=== PATIENT | male | born 1955 | race Caucasian/White ===

== ENCOUNTER 2017-05-30 19:05 | Emergency (ER) | payer MEDICARE, BC ==
[2017-05-30] MEDS ORDERED: Sodium Chloride 0.9% 1,000 ML IV SCH ×2 (20:30→22:15)
[2017-05-30] MEDS: Vancomycin 1 GM SDV ONE ×2 (20:41→21:27)
[2017-05-30] MEDS ORDERED: Acetaminophen 1,000 MG in Premix Bag 1 BAG IV ONE (20:42)
[2017-05-30] MEDS ORDERED: Albuterol/Ipratropium 3.0-0.5 MG/3 ML Neb Soln NEB ONE (20:42)
--- NOTE | 2017-05-30 21:07 | EDM.PDOC ---
ED HPI GENERAL MEDICAL PROBLEM - General Chief Complaint: Skin Complaint Stated Complaint: R LEG REDNESS Time Seen by Provider: 05/30/17 20:22 Source of Information: Reports: Patient History Limitations: Reports: No Limitations - History of Present Illness INITIAL COMMENTS - FREE TEXT/NARRATIVE: Febrile illness: This is a 61-year-old male presents emergency room by private vehicle reporting a cough for the past 2 weeks felt like it was cold symptoms. Then today developed a worsening cough, coughing with emesis. Hubbard weak. Fever. And intermittent chest pain. Reports right lower leg with red dark appearance very painful, this is similar to his previous leg cellulitis. Onset: Today, Gradual Duration: Week(s): (2 week history of cough and cold symptoms.), Other (Today developed sudden onset of fever, swollen right lower leg, weakness, cough.) Location: Reports: Generalized Improves with: Reports: None Worsens with: Reports: Movement Context: Reports: Other (Illness 2 week) Associated Symptoms: Reports: Chest Pain, Cough, Fever/Chills, Malaise, Nausea/ Vomiting, Weakness, Other (Right swollen leg) - Related Data Allergies Allergy/AdvReac Type Severity Reaction Status Date / Time methyldopa [From Aldomet] Allergy Cough Verified 05/30/17 20:03 methyldopate HCl Allergy Cough Verified 05/30/17 20:03 [From Aldomet] Home Meds: Home Meds Aspirin [Ecotrin] 325 mg PO DAILY 06/28/13 [History] Cholecalciferol (Vitamin D3) [Vitamin D-3] 2,000 unit PO DAILY 06/28/13 [History ] Fenofibrate,Micronized [Fenofibrate] 134 mg PO DAILY 06/28/13 [History] Furosemide [Lasix] 80 mg PO BID 06/28/13 [History] Gabapentin [Neurontin] 300 mg PO BID 06/28/13 [History] Metoprolol Tartrate [Lopressor] 50 mg PO BID 06/28/13 [History] Multivitamin [Multivitamins] 1 each PO DAILY 06/28/13 [History] Omeprazole 20 mg PO BIDAC 06/28/13 [History] buPROPion [Wellbutrin XL] 300 mg PO BEDTIME 06/28/13 [History] metFORMIN HCl [Metformin HCl ER] 1,000 mg PO BID 06/28/13 [History] Albuterol [IJD: Albuterol HFA] 2 puff IH Q4HR PRN 02/10/16 [History] Erythromycin Base [Erythromycin 0.5% Ophth Oint] 1 applic OP Q12HR PRN 02/10/16 [History] Ibuprofen 800 mg PO Q6HR PRN 02/10/16 [History] Nitroglycerin [Nitrostat] 0.4 mg SL ASDIRECTED PRN 02/10/16 [History] Tadalafil [Cialis] 20 mg PO DAILY PRN 02/10/16 [History] Triamcinolone Acetonide [Triamcinolone Acetonide 0.1% Crm] 1 applic TOP ASDIRECTED PRN 02/10/16 [History] atorvaSTATin [Lipitor] 40 mg PO BEDTIME 02/10/16 [History] traMADol HCl [Ultram] 50 mg PO 6XDAY PRN 02/10/16 [History] Insulin Regular, Human [Humulin R U-500 Kwikpen] 90 units SQ BID 05/30/17 [ History] Insulin Regular, Human [Humulin R U-500 Kwikpen] 120 units SQ DAILY 05/30/17 [ History] Liraglutide [Victoza] 1 dose SQ DAILY 05/30/17 [History] Past Medical History Cardiovascular History: Reports: Bypass, CAD, High Cholesterol, Hypertension Musculoskeletal History: Reports: Other (See Below) Other Musculoskeletal History: bilateral rotator cuff surgery Psychiatric History: Reports: Depression Endocrine/Metabolic History: Reports: Diabetes, Type II - Infectious Disease History Infectious Disease History: Reports: Chicken Pox - Past Surgical History HEENT Surgical History: Reports: Tonsillectomy Cardiovascular Surgical History: Reports: Coronary Artery Bypass GI Surgical History: Reports: Colonoscopy Musculoskeletal Surgical History: Reports: Arthroscopic Knee, Shoulder Surgery Social & Family History - Tobacco Use Smoking Status *Q: Current Every Day Smoker Years of Tobacco use: 2 Packs/Tins Daily: 0.5 Second Hand Smoke Exposure: No - Caffeine Use Caffeine Use: Reports: Coffee - Alcohol Use Days Per Week of Alcohol Use: 0 - Recreational Drug Use Recreational Drug Use: No - Living Situation & Occupation Living situation: Reports: with Significant Other (Lives in [place] with significant other, has 1 child who lives [place], [place].) ED ROS GENERAL - Review of Systems Review Of Systems: Unable To Obtain Constitutional: Reports: Fever, Chills, Weakness, Fatigue HEENT: Reports: No Symptoms Respiratory: Reports: Shortness of Breath, Wheezing, Pleuritic Chest Pain, Cough , Sputum Cardiovascular: Reports: Chest Pain (Intermittent none at this time), Dyspnea on Exertion, Edema (Bilateral lower legs), Other (Reports 5 vessel bypass 2010, denies [place] in the past) Endocrine: Reports: Other (Diabetes 21 years) GI/Abdominal: Reports: Nausea, Vomiting : Reports: No Symptoms Musculoskeletal: Reports: Leg Pain (Right lower leg with redness and pain), Muscle Pain, Muscle Stiffness Skin: Reports: Rash, Change in Color (Right lower leg) Neurological: Reports: No Symptoms Psychiatric: Reports: No Symptoms Hematologic/Lymphatic: Reports: No Symptoms Immunologic: Reports: No Symptoms ED EXAM, SKIN/RASH Exam: See Below Exam Limited By: No Limitations General Appearance: Alert, WD/WN, Mild Distress, Obese Eye Exam: Bilateral Eye: Conjunctival Injection Ears: Normal External Exam, Normal Canal, Hearing Grossly Normal, Normal TMs Nose: Normal Inspection, Normal Mucosa, No Blood Throat/Mouth: Normal Inspection, Normal Lips, Normal Teeth, Normal Gums, Normal Oropharynx, Normal Voice, No Airway Compromise Head: Atraumatic, Normocephalic Neck: Normal Inspection, Supple, Non-Tender, Full Range of Motion Respiratory/Chest: Decreased Breath Sounds (Bilateral), Rhonchi (Bilateral) Cardiovascular: Regular Rate, Rhythm, No Murmur GI/Abdominal: Normal Bowel Sounds, Soft, Non-Tender, No Organomegaly (Male) Exam: Deferred Rectal (Males) Exam: Deferred Back Exam: Normal Inspection, Full Range of Motion Extremities: Pedal Edema (2+ pitting edema to knees), Leg Pain (Right lower leg) , Increased Warmth (Right lower leg), Redness (Right lower leg, redness and tenderness noted) Neurological: Alert, Oriented, CN II-XII Intact, Normal Cognition, No Motor/ Sensory Deficits Psychiatric: Normal Affect, Normal Mood Skin: Erythema (Right lower leg), Increased Warmth (Right lower leg), Rash, Other (Fungal rash noted to toes) Location, Skin: Lower Extremity, Right Characteristics: Erythematous Associated features: Warmth, Tenderness, Inflammation Lymphatic: No Adenopathy EKG INTERPRETATION Rhythm: NSR Course - Vital Signs Last Recorded V/S: Last Vital Signs Temp 38.6 C H 05/30/17 21:32 Pulse 108 H 05/30/17 21:32 Resp 17 05/30/17 21:32 BP 123/55 L 05/30/17 21:32 Pulse Ox 88 L 05/30/17 21:32 - Orders/Labs/Meds Orders: Active Orders 24 hr Category Date Time Status EKG Documentation Completion [RC] ASDIRECTED Care 05/30/17 20:28 Active RT Aerosol Therapy [RC] ASDIRECTED Care 05/30/17 20:43 Active Telemetry Monitoring [Cardiac Monitoring] [RC] .As Care 05/30/17 20:27 Active Directed Vital Signs [RC] Q1H Care 05/30/17 20:19 Active Chest 1V Frontal [CR] Urgent Exams 05/30/17 20:27 Taken Lower Extremity w Cont Rt [CT] Stat Exams 05/30/17 21:41 Ordered CULTURE BLOOD [BC] Urgent Lab 05/30/17 20:19 Ordered CULTURE BLOOD [BC] Urgent Lab 05/30/17 20:19 Ordered Sodium Chloride 0.9% [Normal Saline] 1,000 ml Med 05/30/17 20:30 Active IV ASDIRECTED Vancomycin 1 gm Med 05/30/17 21:00 Active Sodium Chloride 0.9% [Normal Saline] 250 ml IV Q12H Blood Culture x2 Reflex Set [OM.PC] Urgent Oth 05/30/17 20:19 Ordered EKG 12 Lead [EK] Urgent Ther 05/30/17 20:27 Ordered Medication Orders Sodium Chloride (Normal Saline) 1,000 mls @ 999 mls/hr IV ASDIRECTED GONZALO Last Admin: 05/30/17 20:25 Dose: 999 mls/hr Vancomycin HCl 1 gm/ Sodium (Chloride) 250 mls @ 150 mls/hr IV Q12H GONZALO Last Admin: 05/30/17 20:41 Dose: 150 mls/hr Labs: Laboratory Tests 05/30/17 05/30/17 05/30/17 Range/Units 20:15 20:15 20:15 WBC 14.3 H (4.5-11.0) K/uL RBC 4.89 (4.30-5.90) M/uL Hgb 14.9 (12.0-15.0) g/dL Hct 43.1 (40.0-54.0) % MCV 88 (80-98) fL MCH 31 (27-31) pg MCHC 35 (32-36) % Plt Count 219 (150-400) K/uL Neut % (Auto) 89 H (36-66) % Lymph % (Auto) 6 L (24-44) % [place] % (Auto) 5 (2-6) % Eos % (Auto) 0 L (2-4) % Baso % (Auto) 0 (0-1) % PT (9.5-12.0) sec INR (0.80-1.20) Sodium 139 L (140-148) mmol/L Potassium 3.9 (3.6-5.2) mmol/L Chloride 102 (100-108) mmol/L Carbon Dioxide 28 (21-32) mmol/L Anion Gap 12.9 (5.0-14.0) mmol/L BUN 26 H (7-18) mg/dL Creatinine 1.1 (0.8-1.3) mg/dL Est Cr Clr Drug Dosing 83.03 mL/min Estimated GFR (MDRD) > 60 (>60) Glucose 286 H (74-106) mg/dL Lactic Acid 3.0 H (0.4-2.0) mmol/L Calcium 8.6 (8.5-10.1) mg/dL Total Bilirubin 0.6 (0.2-1.0) mg/dL AST 16 (15-37) U/L ALT 33 (12-78) U/L Alkaline Phosphatase 66 (46-116) U/L Troponin I (0.000-0.056) ng/mL C-Reactive Protein 2.35 H (0.0-0.3) mg/dL NT-Pro-B Natriuret Pep (5-125) pg/mL Total Protein 7.5 (6.4-8.2) g/dL Albumin 3.7 (3.4-5.0) g/dL Globulin 3.8 H (2.3-3.5) g/dL Albumin/Globulin Ratio 1.0 L (1.2-2.2) Urine Color Urine Appearance Urine pH (4.5-8.0) Ur Specific [place] (1.008-1.030) Urine Protein (NEGATIVE) mg/dL Urine Glucose (UA) (NEGATIVE) mg/dL Urine Ketones (NEGATIVE) mg/dL Urine Occult Blood (NEGATIVE) Urine Nitrite (NEGAITVE) Urine Bilirubin (NEGATIVE) Urine Urobilinogen (NORMAL) mg/dL Ur Leukocyte Esterase (NEGATIVE) Urine RBC (0-5) Urine WBC (0-5) Ur Epithelial Cells Amorphous Sediment Urine Bacteria Urine Mucus 05/30/17 05/30/17 05/30/17 Range/Units 20:27 20:45 20:46 WBC (4.5-11.0) K/uL RBC (4.30-5.90) M/uL Hgb (12.0-15.0) g/dL Hct (40.0-54.0) % MCV (80-98) fL MCH (27-31) pg MCHC (32-36) % Plt Count (150-400) K/uL Neut % (Auto) (36-66) % Lymph % (Auto) (24-44) % [place] % (Auto) (2-6) % Eos % (Auto) (2-4) % Baso % (Auto) (0-1) % PT (9.5-12.0) sec INR (0.80-1.20) Sodium (140-148) mmol/L Potassium (3.6-5.2) mmol/L Chloride (100-108) mmol/L Carbon Dioxide (21-32) mmol/L Anion Gap (5.0-14.0) mmol/L BUN (7-18) mg/dL Creatinine (0.8-1.3) mg/dL Est Cr Clr Drug Dosing mL/min Estimated GFR (MDRD) (>60) Glucose (74-106) mg/dL Lactic Acid (0.4-2.0) mmol/L Calcium (8.5-10.1) mg/dL Total Bilirubin (0.2-1.0) mg/dL AST (15-37) U/L ALT (12-78) U/L Alkaline Phosphatase (46-116) U/L Troponin I < 0.017 (0.000-0.056) ng/mL C-Reactive Protein (0.0-0.3) mg/dL NT-Pro-B Natriuret Pep 69 (5-125) pg/mL Total Protein (6.4-8.2) g/dL Albumin (3.4-5.0) g/dL Globulin (2.3-3.5) g/dL Albumin/Globulin Ratio (1.2-2.2) Urine Color Yellow Urine Appearance Clear Urine pH 7.0 (4.5-8.0) Ur Specific [place] 1.010 (1.008-1.030) Urine Protein Negative (NEGATIVE) mg/dL Urine Glucose (UA) 1000 H (NEGATIVE) mg/dL Urine Ketones 15 H (NEGATIVE) mg/dL Urine Occult Blood Negative (NEGATIVE) Urine Nitrite Negative (NEGAITVE) Urine Bilirubin Negative (NEGATIVE) Urine Urobilinogen Normal (NORMAL) mg/dL Ur Leukocyte Esterase Negative (NEGATIVE) Urine RBC Not seen (0-5) Urine WBC Not seen (0-5) Ur Epithelial Cells Rare Amorphous Sediment Not seen Urine Bacteria Rare Urine Mucus Not seen 05/30/17 Range/Units 20:46 WBC (4.5-11.0) K/uL RBC (4.30-5.90) M/uL Hgb (12.0-15.0) g/dL Hct (40.0-54.0) % MCV (80-98) fL MCH (27-31) pg MCHC (32-36) % Plt Count (150-400) K/uL Neut % (Auto) (36-66) % Lymph % (Auto) (24-44) % [place] % (Auto) (2-6) % Eos % (Auto) (2-4) % Baso % (Auto) (0-1) % PT 11.4 (9.5-12.0) sec INR 1.06 (0.80-1.20) Sodium (140-148) mmol/L Potassium (3.6-5.2) mmol/L Chloride (100-108) mmol/L Carbon Dioxide (21-32) mmol/L Anion Gap (5.0-14.0) mmol/L BUN (7-18) mg/dL Creatinine (0.8-1.3) mg/dL Est Cr Clr Drug Dosing mL/min Estimated GFR (MDRD) (>60) Glucose (74-106) mg/dL Lactic Acid (0.4-2.0) mmol/L Calcium (8.5-10.1) mg/dL Total Bilirubin (0.2-1.0) mg/dL AST (15-37) U/L ALT (12-78) U/L Alkaline Phosphatase (46-116) U/L Troponin I (0.000-0.056) ng/mL C-Reactive Protein (0.0-0.3) mg/dL NT-Pro-B Natriuret Pep (5-125) pg/mL Total Protein (6.4-8.2) g/dL Albumin (3.4-5.0) g/dL Globulin (2.3-3.5) g/dL Albumin/Globulin Ratio (1.2-2.2) Urine Color Urine Appearance Urine pH (4.5-8.0) Ur Specific [place] (1.008-1.030) Urine Protein (NEGATIVE) mg/dL Urine Glucose (UA) (NEGATIVE) mg/dL Urine Ketones (NEGATIVE) mg/dL Urine Occult Blood (NEGATIVE) Urine Nitrite (NEGAITVE) Urine Bilirubin (NEGATIVE) Urine Urobilinogen (NORMAL) mg/dL Ur Leukocyte Esterase (NEGATIVE) Urine RBC (0-5) Urine WBC (0-5) Ur Epithelial Cells Amorphous Sediment Urine Bacteria Urine Mucus Meds: Medications Generic Name Dose Route Start Last Admin Trade Name Freq PRN Reason Stop Dose Admin Sodium Chloride 1,000 mls @ 999 mls/hr 05/30/17 20:30 05/30/17 20:25 Normal Saline IV 999 mls/hr ASDIRECTED GONZALO Administration Vancomycin HCl 1 gm/ Sodium 250 mls @ 150 mls/hr 05/30/17 21:00 05/30/17 20: 41 Chloride IV 150 mls/hr Q12H GONZALO Administration Discontinued Medications Generic Name Dose Route Start Last Admin Trade Name Freq PRN Reason Stop Dose Admin Albuterol/Ipratropium 3 ml 05/30/17 20:42 05/30/17 21:05 Duoneb 3.0-0.5 Mg/3 Ml NEB 05/30/17 20:43 3 ml ONETIME ONE Administration Acetaminophen 1,000 mg/ Premix 100 mls @ 400 mls/hr 05/30/17 20:42 05/30/17 21:12 IV 05/30/17 20:56 400 mls/hr NOW ONE Administration Vancomycin HCl Confirm 05/30/17 20:29 05/30/17 21:27 Vancomycin Administered 05/30/17 20:30 Not Given Dose 1 gm .ROUTE .STK-MED ONE - Re-Assessments/Exams Free Text/Narrative Re-Assessment/Exam: 05/30/17 21:16 Upon arrival to the ER he was noted to have a temp of 104, pulse 115, respirations 22, blood pressure 120/76, O2 sat 86% on room air increased to 91% with 2 L by nasal cannula. Plan: Sepsis protocol initiated. Imaging chest x-ray ,labs x-ray are pending. EKG shows a sinus tach without ST elevation Medications : IV fluids normal saline 1 L at 999ml/hr, vancomycin 1 g IV, IV Tylenol 1 g, Zofran 4 mg IV. 05/30/17 21:45 Consult was transferred [facility]; reviewed case will be accepted for admission. ./hospitalists would like a CT of the lower right leg prior to transfer. Departure - Departure Time of Disposition: 21:55 Disposition: DC/Tfer to Acute Hospital 02 Condition: Fair Clinical Impression: Sepsis - Discharge Information Referrals: Malina Garcia MD [Primary Care Provider] - Forms: ED Department Discharge Care Plan Goals: Transfer to [facility] for hospital admission, will be transported via [facility] ambulance. - My Orders Last 24 Hours: My Active Orders 05/30/17 20:19 Vital Signs [RC] Q1H CULTURE BLOOD [BC] Urgent CULTURE BLOOD [BC] Urgent Blood Culture x2 Reflex Set [OM.PC] Urgent 05/30/17 20:27 Telemetry Monitoring [Cardiac Monitoring] [RC] .As Directed Chest 1V Frontal [CR] Urgent EKG 12 Lead [EK] Urgent 05/30/17 20:28 EKG Documentation Completion [RC] ASDIRECTED 05/30/17 20:30 Sodium Chloride 0.9% [Normal Saline] 1,000 ml IV ASDIRECTED 05/30/17 20:43 RT Aerosol Therapy [RC] ASDIRECTED 05/30/17 21:00 Vancomycin 1 gm Sodium Chloride 0.9% [Normal Saline] 250 ml IV Q12H 05/30/17 21:41 Lower Extremity w Cont Rt [CT] Stat - Assessment/Plan Last 24 Hours: My Active Orders 05/30/17 20:19 Vital Signs [RC] Q1H CULTURE BLOOD [BC] Urgent CULTURE BLOOD [BC] Urgent Blood Culture x2 Reflex Set [OM.PC] Urgent 05/30/17 20:27 Telemetry Monitoring [Cardiac Monitoring] [RC] .As Directed Chest 1V Frontal [CR] Urgent EKG 12 Lead [EK] Urgent 05/30/17 20:28 EKG Documentation Completion [RC] ASDIRECTED 05/30/17 20:30 Sodium Chloride 0.9% [Normal Saline] 1,000 ml IV ASDIRECTED 05/30/17 20:43 RT Aerosol Therapy [RC] ASDIRECTED 05/30/17 21:00 Vancomycin 1 gm Sodium Chloride 0.9% [Normal Saline] 250 ml IV Q12H 05/30/17 21:41 Lower Extremity w Cont Rt [CT] Stat
[2017-05-30 21:34] VITALS: BP 123/55
[2017-05-30] MEDS ORDERED: Sodium Chloride 0.9% 10 ML Syringe FLUSH PRN (21:55)
[2017-05-30] MEDS ORDERED: Iopamidol 612 MG/ML 100 ML Bottle IV SCH (22:00)
[2017-05-30] MEDS ORDERED: Sodium Chloride 0.9% 80 ML IV SCH (22:00)
--- NOTE | 2017-05-31 09:44 | CR ---
Sternotomy. Heart size within normal limits. No focal consolidation.
== END 2017-05-30 22:35 ==
LOC: JP.ED 19:05
DX: A41.9 Sepsis, unspecified organism (principal); I25.10 Atherosclerotic heart disease of native coronary artery without angina pectoris; E78.00 Pure hypercholesterolemia, unspecified; I10 Essential (primary) hypertension; E11.9 Type 2 diabetes mellitus without complications; F17.210 Nicotine dependence, cigarettes, uncomplicated; Z79.899 Other long term (current) drug therapy; Z79.82 Long term (current) use of aspirin; Z88.8 Allergy status to other drugs, medicaments and biological substances; R06.02 Shortness of breath
CPT/HCPCS: 36415; 71010; 73701; 80053; 81001; 83605; 83880; 84484; 85025; 85610; 86140; 87040; 93005; 93010; 96365; 96366; 96375; 99284; 99285; J0131; J3370; J7030; J7040; J7050; J7620; Q9967

== ENCOUNTER 2017-06-28 20:42 | Inpatient (IN) | payer MEDICARE, BC ==
[2017-06-28] MEDS ORDERED: Sodium Chloride 0.9% 10 ML Syringe FLUSH PRN (21:26)
[2017-06-28] MEDS ORDERED: Vancomycin 1 GM SDV ONE (21:53)
[2017-06-28] MEDS ORDERED: Dextrose 5% in Water 250 ML ONE (21:53)
[2017-06-28] MEDS ORDERED: Insulin Regular, Human 100 Units/ML 10 ML Vial SUBCUT ONE (21:57)
--- NOTE | 2017-06-28 22:10 | EDM.PDOC ---
ED HPI GENERAL MEDICAL PROBLEM - General Chief Complaint: Skin Complaint Stated Complaint: CELLULITIS Time Seen by Provider: 06/28/17 21:03 Source of Information: Reports: Patient History Limitations: Reports: No Limitations - History of Present Illness INITIAL COMMENTS - FREE TEXT/NARRATIVE: This patient comes in for complaints of cellulitis of the right calf. He had the same thing about 4 weeks ago was seen in our ER had a high fever was sent to [place]. He was placed on antibiotics and was also found that he had a clot in the leg he was placed on Coumadin which he is still taking. Today at home his temperature was up to 102. He bumped his calf a few days ago on something and got a little abrasion upfront over the midshaft the tibia. It's been draining for a couple of days and now today the whole calf is red warm and a little bit tender right LE Pain Score (Numeric/FACES): 8 - Related Data Allergies Allergy/AdvReac Type Severity Reaction Status Date / Time methyldopa [From Aldomet] Allergy Cough Verified 06/28/17 21:03 methyldopate HCl Allergy Cough Verified 06/28/17 21:03 [From Aldomet] Home Meds: Home Meds Aspirin [Ecotrin] 325 mg PO DAILY 06/28/13 [History] Cholecalciferol (Vitamin D3) [Vitamin D-3] 2,000 unit PO DAILY 06/28/13 [History ] Fenofibrate,Micronized [Fenofibrate] 134 mg PO DAILY 06/28/13 [History] Furosemide [Lasix] 80 mg PO BID 06/28/13 [History] Gabapentin [Neurontin] 300 mg PO BID 06/28/13 [History] Metoprolol Tartrate [Lopressor] 50 mg PO BID 06/28/13 [History] Multivitamin [Multivitamins] 1 each PO DAILY 06/28/13 [History] Omeprazole 20 mg PO BIDAC 06/28/13 [History] buPROPion [Wellbutrin XL] 300 mg PO BEDTIME 06/28/13 [History] metFORMIN HCl [Metformin HCl ER] 1,000 mg PO BID 06/28/13 [History] Albuterol [IJD: Albuterol HFA] 2 puff IH Q4HR PRN 02/10/16 [History] Erythromycin Base [Erythromycin 0.5% Ophth Oint] 1 applic OP Q12HR PRN 02/10/16 [History] Ibuprofen 800 mg PO Q6HR PRN 02/10/16 [History] Nitroglycerin [Nitrostat] 0.4 mg SL ASDIRECTED PRN 02/10/16 [History] Tadalafil [Cialis] 20 mg PO DAILY PRN 02/10/16 [History] Triamcinolone Acetonide [Triamcinolone Acetonide 0.1% Crm] 1 applic TOP ASDIRECTED PRN 02/10/16 [History] atorvaSTATin [Lipitor] 40 mg PO BEDTIME 02/10/16 [History] traMADol HCl [Ultram] 50 mg PO 6XDAY PRN 02/10/16 [History] Insulin Regular, Human [Humulin R U-500 Kwikpen] 90 units SQ BID 05/30/17 [ History] Insulin Regular, Human [Humulin R U-500 Kwikpen] 120 units SQ DAILY 05/30/17 [ History] Liraglutide [Victoza] 1 dose SQ DAILY 05/30/17 [History] Warfarin Sodium [Warfarin Sodium] 15 mg PO DAILY 06/28/17 [History] Past Medical History Cardiovascular History: Reports: Bypass, CAD, High Cholesterol, Hypertension Respiratory History: Reports: Asthma Musculoskeletal History: Reports: Other (See Below) Other Musculoskeletal History: bilateral rotator cuff surgery Psychiatric History: Reports: Depression Endocrine/Metabolic History: Reports: Diabetes, Type II Dermatologic History: Reports: Cellulitis - Infectious Disease History Infectious Disease History: Reports: Chicken Pox - Past Surgical History HEENT Surgical History: Reports: Tonsillectomy Cardiovascular Surgical History: Reports: Coronary Artery Bypass GI Surgical History: Reports: Colonoscopy Musculoskeletal Surgical History: Reports: Arthroscopic Knee, Shoulder Surgery Social & Family History - Tobacco Use Smoking Status *Q: Never Smoker Years of Tobacco use: 2 Packs/Tins Daily: 0.5 Second Hand Smoke Exposure: No - Caffeine Use Caffeine Use: Reports: Coffee - Alcohol Use Days Per Week of Alcohol Use: 0 - Recreational Drug Use Recreational Drug Use: No - Living Situation & Occupation Living situation: Reports: with Significant Other (Lives in [place] with significant other, has 1 child who lives [place], [place].) ED ROS GENERAL - Review of Systems Review Of Systems: ROS reveals no pertinent complaints other than HPI. ED EXAM, SKIN/RASH Exam: See Below Exam Limited By: No Limitations General Appearance: Alert, No Apparent Distress, Obese Eye Exam: Bilateral Eye: Normal Inspection, PERRL Nose: Normal Inspection Throat/Mouth: Normal Oropharynx Head: Atraumatic Neck: Normal Inspection Respiratory/Chest: Lungs Clear Cardiovascular: Regular Rate, Rhythm GI/Abdominal: Non-Tender Extremities: Other (There is swelling of the right calf. The right calf is fairly deep red and warm from the ankle up to about the knee. Over the midshaft tibia on the right there is a lesion approximately 2 cm in diameter that his training pus. The calf is mildly tender but there are no cords palpable.) Neurological: Alert, Oriented, No Motor/Sensory Deficits Psychiatric: Normal Affect Skin: Warm, Dry, Other (See extremities). No: Normal Color Course - Vital Signs Last Recorded V/S: Last Vital Signs Temp 37.8 C 06/28/17 21:08 Pulse 101 H 06/28/17 21:08 Resp 20 06/28/17 21:08 BP 132/67 06/28/17 21:08 Pulse Ox 92 L 06/28/17 21:08 - Orders/Labs/Meds Orders: Active Orders 24 hr Category Date Time Status AMYLASE [CHEM] Urgent Lab 06/28/17 21:36 Ordered COMPREHENSIVE METABOLIC PN,CMP [CHEM] Urgent Lab 06/28/17 21:35 Received CULTURE WOUND + SMEAR [RM] Stat Lab 06/28/17 21:41 Results LACTIC ACID [CHEM] Stat Lab 06/28/17 21:35 Received LIPASE [CHEM] Urgent Lab 06/28/17 21:36 Ordered UA W/MICROSCOPIC [URIN] Urgent Lab 06/28/17 21:38 Uncollected Sodium Chloride 0.9% [Saline Flush] Med 06/28/17 21:26 Active 10 ml FLUSH ASDIRECTED PRN Vancomycin 1,000 mg Med 06/28/17 21:48 Active Dextrose 5% in Water 250 ml IV ONETIME Saline Lock Insert [OM.PC] Urgent Oth 06/28/17 21:26 Ordered Medication Orders Vancomycin HCl 1,000 mg/ (Dextrose/Water) 250 mls @ 167 mls/hr IV ONETIME ONE Stop: 06/28/17 23:17 Last Admin: 06/28/17 22:04 Dose: 167 mls/hr Sodium Chloride (Saline Flush) 10 ml FLUSH ASDIRECTED PRN PRN Reason: Keep Vein Open Last Admin: 06/28/17 21:39 Dose: 10 ml Labs: Laboratory Tests 06/28/17 06/28/17 Range/Units 21:35 21:35 WBC 15.2 H (4.5-11.0) K/uL RBC 4.60 (4.30-5.90) M/uL Hgb 13.8 (12.0-15.0) g/dL Hct 40.6 (40.0-54.0) % MCV 88 (80-98) fL MCH 30 (27-31) pg MCHC 34 (32-36) % Plt Count 359 (150-400) K/uL Neut % (Auto) 85 H (36-66) % Lymph % (Auto) 10 L (24-44) % [place] % (Auto) 4 (2-6) % Eos % (Auto) 1 L (2-4) % Baso % (Auto) 0 (0-1) % PT 25.4 H (9.5-12.0) sec INR 2.29 H (0.80-1.20) Meds: Medications Generic Name Dose Route Start Last Admin Trade Name Freq PRN Reason Stop Dose Admin Vancomycin HCl 1,000 mg/ 250 mls @ 167 mls/hr 06/28/17 21:48 06/28/17 22:04 Dextrose/Water IV 06/28/17 23:17 167 mls/hr ONETIME ONE Administration Sodium Chloride 10 ml 06/28/17 21:26 06/28/17 21:39 Saline Flush FLUSH 10 ml ASDIRECTED PRN Administration Keep Vein Open Discontinued Medications Generic Name Dose Route Start Last Admin Trade Name Freq PRN Reason Stop Dose Admin Dextrose/Water Confirm 06/28/17 21:53 Dextrose 5% In Water Administered 06/28/17 21:54 Dose 250 mls @ as directed .ROUTE .STK-MED ONE Insulin Human Regular 90 unit 06/28/17 21:57 Novolin R SUBCUT 06/28/17 21:58 ONETIME ONE Protocol Vancomycin HCl Confirm 06/28/17 21:53 Vancomycin Administered 06/28/17 21:54 Dose 1 gm .ROUTE .STK-MED ONE - Re-Assessments/Exams Free Text/Narrative Re-Assessment/Exam: 06/28/17 22:08 A wound culture was done. There is no history of MRSA as per the patient. He was given vancomycin 1 g IV. He'll be admitted to the hospital for further IV antibiotics. Because he is therapeutic on Coumadin we didn't feel there was any need in doing a venous ultrasound. Case been discussed with Bernadine Lam who will do the admission Departure - Departure Time of Disposition: 22:09 Disposition: Admitted As Inpatient 66 Condition: Fair Clinical Impression: Cellulitis, Type 2 diabetes mellitus - Discharge Information Referrals: Malina Garcia MD [Primary Care Provider] - - My Orders Last 24 Hours: My Active Orders 06/28/17 21:26 Sodium Chloride 0.9% [Saline Flush] 10 ml FLUSH ASDIRECTED PRN Saline Lock Insert [OM.PC] Urgent 06/28/17 21:35 COMPREHENSIVE METABOLIC PN,CMP [CHEM] Urgent 06/28/17 21:41 CULTURE WOUND + SMEAR [RM] Stat 06/28/17 21:48 Vancomycin 1,000 mg Dextrose 5% in Water 250 ml IV ONETIME - Assessment/Plan Last 24 Hours: My Active Orders 06/28/17 21:26 Sodium Chloride 0.9% [Saline Flush] 10 ml FLUSH ASDIRECTED PRN Saline Lock Insert [OM.PC] Urgent 06/28/17 21:35 COMPREHENSIVE METABOLIC PN,CMP [CHEM] Urgent 06/28/17 21:41 CULTURE WOUND + SMEAR [RM] Stat 06/28/17 21:48 Vancomycin 1,000 mg Dextrose 5% in Water 250 ml IV ONETIME
--- NOTE | 2017-06-28 23:51 | PCM.HP ---
H&P History of Present Illness - General Date of Service: 06/28/17 Admit Problem/Dx: Admission Diagnosis/Problem Admission Diagnosis/Problem Cellulitis and abscess of lower leg Source of Information: Half-Way Records History Limitations: Reports: No Limitations - History of Present Illness Initial Comments - Free Text/Narative: This patient comes in for complaints of cellulitis of the right calf. He had the same thing about 4 weeks ago was seen in our ER had a high fever was sent to [facility]. He was placed on antibiotics and was also found that he had a clot in the leg he was placed on Coumadin which he is still taking. Today at home his temperature was up to 102. He bumped his calf a few days ago on something and got a little abrasion upfront over the mid shaft the tibia. It's been draining for a couple of days and now today the whole calf is red warm and tender Pain Score (Numeric/FACES): 8 Onset of Symptoms: Reports: Sudden Duration of Symptoms: Reports: Getting Worse Location: Reports: Lower Extremity, Right Quality: Reports: Ache Severity: Moderate Improves with: Reports: None Worsens with: Reports: Movement (pain with walking) Context: Reports: Other (similar illness 4 weeks ago) Associated Symptoms: Reports: Fever/Chills, Other (report just not feeling well , similar to previous illness) right LE Pain Score (Numeric/FACES): 8 - Related Data Allergies/Adverse Reactions: Allergies Allergy/AdvReac Type Severity Reaction Status Date / Time methyldopa [From Aldomet] Allergy Cough Verified 06/28/17 21:03 methyldopate HCl Allergy Cough Verified 06/28/17 21:03 [From Aldomet] Home Medications: Home Meds Aspirin [Ecotrin] 325 mg PO DAILY 06/28/13 [History] Cholecalciferol (Vitamin D3) [Vitamin D-3] 2,000 unit PO DAILY 06/28/13 [History ] Fenofibrate,Micronized [Fenofibrate] 134 mg PO DAILY 06/28/13 [History] Furosemide [Lasix] 80 mg PO BID 06/28/13 [History] Gabapentin [Neurontin] 300 mg PO BID 06/28/13 [History] Metoprolol Tartrate [Lopressor] 50 mg PO BID 06/28/13 [History] Multivitamin [Multivitamins] 1 each PO DAILY 06/28/13 [History] Omeprazole 20 mg PO BIDAC 06/28/13 [History] buPROPion [Wellbutrin XL] 300 mg PO BEDTIME 06/28/13 [History] metFORMIN HCl [Metformin HCl ER] 1,000 mg PO BID 06/28/13 [History] Albuterol [IJD: Albuterol HFA] 2 puff IH Q4HR PRN 02/10/16 [History] Erythromycin Base [Erythromycin 0.5% Ophth Oint] 1 applic OP Q12HR PRN 02/10/16 [History] Ibuprofen 800 mg PO Q6HR PRN 02/10/16 [History] Nitroglycerin [Nitrostat] 0.4 mg SL ASDIRECTED PRN 02/10/16 [History] Tadalafil [Cialis] 20 mg PO DAILY PRN 02/10/16 [History] Triamcinolone Acetonide [Triamcinolone Acetonide 0.1% Crm] 1 applic TOP ASDIRECTED PRN 02/10/16 [History] atorvaSTATin [Lipitor] 40 mg PO BEDTIME 02/10/16 [History] traMADol HCl [Ultram] 50 mg PO 6XDAY PRN 02/10/16 [History] Insulin Regular, Human [Humulin R U-500 Kwikpen] 90 units SQ BID 05/30/17 [ History] Insulin Regular, Human [Humulin R U-500 Kwikpen] 120 units SQ DAILY 05/30/17 [ History] Liraglutide [Victoza] 1 dose SQ DAILY 05/30/17 [History] Warfarin Sodium [Warfarin Sodium] 15 mg PO DAILY 06/28/17 [History] Past Medical History Cardiovascular History: Reports: Bypass, CAD, High Cholesterol, Hypertension Respiratory History: Reports: Asthma Musculoskeletal History: Reports: Other (See Below) Other Musculoskeletal History: bilateral rotator cuff surgery Psychiatric History: Reports: Depression Endocrine/Metabolic History: Reports: Diabetes, Type II Dermatologic History: Reports: Cellulitis - Infectious Disease History Infectious Disease History: Reports: Chicken Pox - Past Surgical History HEENT Surgical History: Reports: Tonsillectomy Cardiovascular Surgical History: Reports: Coronary Artery Bypass GI Surgical History: Reports: Colonoscopy Musculoskeletal Surgical History: Reports: Arthroscopic Knee, Shoulder Surgery Social & Family History - Tobacco Use Smoking Status *Q: Never Smoker Years of Tobacco use: 2 Packs/Tins Daily: 0.5 Second Hand Smoke Exposure: No - Caffeine Use Caffeine Use: Reports: Coffee - Alcohol Use Days Per Week of Alcohol Use: 0 - Recreational Drug Use Recreational Drug Use: No - Living Situation & Occupation Living situation: Reports: with Significant Other (Lives in [place] with significant other, has 1 child who lives [place], [place].) Occupation: Retired H&P Review of Systems - Review of Systems: Review Of Systems: See Below General: Reports: Fever, Chills, Malaise, Other (sudden onset of right lower leg pain and redness) HEENT: Reports: No Symptoms Pulmonary: Reports: No Symptoms Cardiovascular: Reports: No Symptoms Gastrointestinal: Reports: No Symptoms Genitourinary: Reports: No Symptoms Musculoskeletal: Reports: Leg Pain, Muscle Pain (right lower leg) Skin: Reports: Bruising (bilateral legs, and abdomen), Erythema (right lower leg ), Change in Color (lower legs) Psychiatric: Reports: No Symptoms Neurological: Reports: No Symptoms Hematologic/Lymphatic: Reports: Easy Bleeding, Easy Bruising, Other (Coumadin therapy for DVT right calf) Immunologic: Reports: No Symptoms Exam - Exam Exam: See Below - Vital Signs Vital Signs: Last Vital Signs Temp 37.8 C 06/28/17 21:08 Pulse 82 06/28/17 22:55 Resp 18 06/28/17 22:55 BP 132/67 06/28/17 22:55 Pulse Ox 96 06/28/17 22:55 Weight: 126.8 kg - Exam General: Alert, Oriented, Cooperative, Other (very pleasant, neat and well groomed) HEENT: PERRLA, Hearing Intact, Mucosa Moist & [place], Nares Patent, Normal Nasal Septum, Posterior Pharynx Clear, Conjunctiva Clear, EOMI, EACs Clear, TMs Clear Neck: Supple, Trachea Midline, 2 Lungs: Decreased Breath Sounds, Wheezing Cardiovascular: Regular Rate, Regular Rhythm, Normal S1, Normal S2 GI/Abdominal Exam: Normal Bowel Sounds, Soft, Non-Tender, Pelvis Stable, Distended (obese abdomen) (Male) Exam: Deferred Rectal (Males) Exam: Deferred Back Exam: Normal Inspection, Full Range of Motion Extremities: Pedal Edema, Slow Capillary Refill, Increased Warmth, Mottled, Redness Peripheral Pulses: 2+: Radial (L), Radial (R) Skin: Dry (feet), Wound, Decubitis, Other (right lower leg with anterior open wound with thick purulent disharge. ) Neurological: Strength Equal Bilateral, Other (walking with limp due to pain) Neuro Extensive - Mental Status: Alert, Oriented x3, Normal Mood/Affect, Normal Cognition Psychiatric: Alert, Normal Affect, Normal Mood - Patient Data Lab Results Last 24 hrs: Laboratory Results - last 24 hr 06/28/17 06/28/17 06/28/17 Range/Units 21:35 21:35 21:35 WBC 15.2 H (4.5-11.0) K/uL RBC 4.60 (4.30-5.90) M/uL Hgb 13.8 (12.0-15.0) g/dL Hct 40.6 (40.0-54.0) % MCV 88 (80-98) fL MCH 30 (27-31) pg MCHC 34 (32-36) % Plt Count 359 (150-400) K/uL Neut % (Auto) 85 H (36-66) % Lymph % (Auto) 10 L (24-44) % [place] % (Auto) 4 (2-6) % Eos % (Auto) 1 L (2-4) % Baso % (Auto) 0 (0-1) % PT 25.4 H (9.5-12.0) sec INR 2.29 H (0.80-1.20) Sodium 137 L (140-148) mmol/L Potassium 4.0 (3.6-5.2) mmol/L Chloride 99 L (100-108) mmol/L Carbon Dioxide 28 (21-32) mmol/L Anion Gap 14.0 (5.0-14.0) mmol/L BUN 20 H (7-18) mg/dL Creatinine 1.2 (0.8-1.3) mg/dL Est Cr Clr Drug Dosing 75.16 mL/min Estimated GFR (MDRD) > 60 (>60) Glucose 186 H (74-106) mg/dL Lactic Acid (0.4-2.0) mmol/L Calcium 8.4 L (8.5-10.1) mg/dL Total Bilirubin 0.6 (0.2-1.0) mg/dL AST 55 H D (15-37) U/L ALT 29 (12-78) U/L Alkaline Phosphatase 72 (46-116) U/L Total Protein 8.6 H (6.4-8.2) g/dL Albumin 3.3 L (3.4-5.0) g/dL Globulin 5.3 H (2.3-3.5) g/dL Albumin/Globulin Ratio 0.6 L (1.2-2.2) Amylase (25-115) U/L Lipase (73-393) U/L 06/28/17 06/28/17 Range/Units 21:35 21:36 WBC (4.5-11.0) K/uL RBC (4.30-5.90) M/uL Hgb (12.0-15.0) g/dL Hct (40.0-54.0) % MCV (80-98) fL MCH (27-31) pg MCHC (32-36) % Plt Count (150-400) K/uL Neut % (Auto) (36-66) % Lymph % (Auto) (24-44) % [place] % (Auto) (2-6) % Eos % (Auto) (2-4) % Baso % (Auto) (0-1) % PT (9.5-12.0) sec INR (0.80-1.20) Sodium (140-148) mmol/L Potassium (3.6-5.2) mmol/L Chloride (100-108) mmol/L Carbon Dioxide (21-32) mmol/L Anion Gap (5.0-14.0) mmol/L BUN (7-18) mg/dL Creatinine (0.8-1.3) mg/dL Est Cr Clr Drug Dosing mL/min Estimated GFR (MDRD) (>60) Glucose (74-106) mg/dL Lactic Acid 1.4 (0.4-2.0) mmol/L Calcium (8.5-10.1) mg/dL Total Bilirubin (0.2-1.0) mg/dL AST (15-37) U/L ALT (12-78) U/L Alkaline Phosphatase (46-116) U/L Total Protein (6.4-8.2) g/dL Albumin (3.4-5.0) g/dL Globulin (2.3-3.5) g/dL Albumin/Globulin Ratio (1.2-2.2) Amylase 20 L (25-115) U/L Lipase 111 (73-393) U/L Result Diagrams: 06/28/17 21:35 06/28/17 21:35 Julio Cesar Results Last 24 hrs: Microbiology 06/28/17 21:41 Gram Stain - Final Calf, Right *Q Meaningful Use (ADM) - VTE *Q VTE Criteria *Q: - Stroke *Q Stroke Criteria *Q: - AMI *Q AMI Criteria *Q: - Problem List (1) Leg DVT (deep venous thromboembolism), chronic SNOMED Code(s): 345563348 ICD Code: I82.509 - CHRONIC EMBOLISM AND THOMBOS UNSP DEEP VN UNSP LOW EXTRM Status: Acute Priority: High Current Visit: Yes Qualifiers: Laterality: right Qualified Code(s): I82.501 - Chronic embolism and thrombosis of unspecified deep veins of right lower extremity (2) Chronic deep vein thrombosis (DVT) of right lower extremity SNOMED Code(s): 083811758325048 ICD Code: I82.501 - CHRONIC EMBOLISM AND THOMBOS UNSP DEEP VEINS OF R LOW EXTREM Status: Acute Priority: High Current Visit: Yes Qualifiers: Affected thrombotic vein of extremity: unspecified vein of extremity Qualified Code(s): I82.501 - Chronic embolism and thrombosis of unspecified deep veins of right lower extremity (3) Cellulitis SNOMED Code(s): 458748726 ICD Code: L03.90 - CELLULITIS, UNSPECIFIED Status: Acute Priority: High Current Visit: Yes Qualifiers: Site of cellulitis: extremity Site of cellulitis of extremity: lower extremity Laterality: right Qualified Code(s): L03.115 - Cellulitis of right lower limb (4) Type 2 diabetes mellitus SNOMED Code(s): 61651211 ICD Code: E11.9 - TYPE 2 DIABETES MELLITUS WITHOUT COMPLICATIONS Status: Acute Priority: High Current Visit: Yes Qualifiers: Diabetes mellitus complication status: with circulatory complication Problem List Initiated/Reviewed/Updated: Yes Orders Last 24hrs: Active Orders 24 hr Category Date Time Status Patient Status Manage Transfer [TRANSFER] Routine ADT 06/28/17 23:06 Ordered Blood Glucose Check, Bedside [RC] ONETIME Care 06/28/17 22:17 Inactive CULTURE BLOOD [BC] Urgent Lab 06/28/17 23:05 Received CULTURE BLOOD [BC] Urgent Lab 06/28/17 23:10 Received CULTURE WOUND + SMEAR [RM] Stat Lab 06/28/17 21:41 Results UA W/MICROSCOPIC [URIN] Urgent Lab 06/28/17 21:38 Uncollected Sodium Chloride 0.9% [Saline Flush] Med 06/28/17 21:26 Active 10 ml FLUSH ASDIRECTED PRN Blood Culture x2 Reflex Set [OM.PC] Urgent Oth 06/28/17 23:02 Ordered Saline Lock Insert [OM.PC] Urgent Oth 06/28/17 21:26 Ordered Resuscitation Status Routine Resus Stat 06/28/17 23:16 Ordered Medication Orders Sodium Chloride (Saline Flush) 10 ml FLUSH ASDIRECTED PRN PRN Reason: Keep Vein Open Last Admin: 06/28/17 21:39 Dose: 10 ml Assessment/Plan Comment:: ASSESSMENT / PLAN -This patient comes in for complaints of cellulitis of the right calf. He had the same thing about 4 weeks ago was seen in our ER had a high fever was sent to [facility]. He was placed on antibiotics and was also found that he had a clot in the leg he was placed on Coumadin which he is still taking. Today at home his temperature was up to 102. He bumped his calf a few days ago on something and got a little abrasion upfront over the mid shaft the tibia. It's been draining for a couple of days and now today the whole calf is red warm and tender (There is swelling of the right calf. The right calf is fairly deep red and warm from the ankle up to about the knee. Over the midshaft tibia on the right there is a lesion approximately 2 cm in diameter that his training pus. The calf is mildly tender but there are no cords palpable.) Neurological: Alert, Oriented, No Motor/Sensory Deficits 06/28/17 22:08 A wound culture was done. There is no history of MRSA as per the patient. He was given vancomycin 1 g IV. He'll be admitted to the hospital for further IV antibiotics. Because he is therapeutic on Coumadin we didn't feel there was any need in doing a venous ultrasound. Case been discussed with Bernadine Lam who will do the admission Right lower leg Cellultis -consult to Surgery; Dr. Devin Lovett -Admit to ICU Med-surg overflow -IV Fluids for rehydration NS at 125 mL per hour -IV Antibiotic; Vancomycin 1 gram IV every 12 hours -IV Antibiotic; Meropenem 1 gram IV every 8 hours -Wound culture; preliminary moderate gram + cocci, few gram - rods -blood cultures x2 pending -And a.m. labs: CBC, BMP, lactic acid Diabetes Type 2 -blood glucose check before meals and at bedtime -Insulin Novolog subcut medium sliding scale coverage -consistent carb diet Maintenance issues -Orders home meds: -Nutrition: consistent carb diet -Becerra catheter not indicated at this time -DVT: current DVT, Coumadin 15mg daily -PPI; IV Protonix 40mg daily CODE STATUS: FULL CODE Admission status: Admit to ICU Med-overflow Admission justification. This patient will be admitted for inpatient services and is medically appropriate meeting medical necessity for inpatient admission as outlined in my documentation. I reasonably expect the patient will require inpatient services that span. Time over 2 midnights. I reasonably expect this patient to be discharged or transferred within 96 hours after admission to the critical access hospital. Disposition; home Primary care provider: Dr. Romero, [facility], [place], [place].
[2017-06-29] MEDS ORDERED: Sodium Chloride 0.9% 1,000 ML IV SCH ×2 (00:16)
[2017-06-29] MEDS ORDERED: Nitroglycerin 0.4 MG Tab.SL SL PRN (00:16)
[2017-06-29] MEDS ORDERED: Albuterol 0.083% 2.5 MG/3 ML Neb Soln NEB PRN (00:16)
[2017-06-29] MEDS ORDERED: Acetaminophen 325 MG Tab PO PRN (00:16)
[2017-06-29] MEDS ORDERED: traMADol 50 MG Tab PO PRN (00:16)
[2017-06-29] MEDS ORDERED: oxyCODONE 5 MG Tab PO PRN (00:16)
[2017-06-29] MEDS ORDERED: LORazepam 2 MG/ML MDV IV PRN (00:16)
[2017-06-29] MEDS ORDERED: Albuterol 8 GM Inhaler INH PRN (00:16)
[2017-06-29] MEDS ORDERED: Furosemide 40 MG Tab PO SCH (00:16)
[2017-06-29] MEDS ORDERED: Ondansetron 4 MG Tab.DIS PO PRN (00:16)
[2017-06-29] MEDS ORDERED: Erythromycin Base 0.5% Ophth Oint 1 GM Tube EYERT PRN (00:16)
[2017-06-29] MEDS: atorvaSTATin 20 MG Tab PO SCH ×2 (01:11→21:15)
[2017-06-29] MEDS: Warfarin 5 MG Tab PO SCH ×2 (01:11→13:34)
[2017-06-29] MEDS: buPROPion 150 MG Tab.ER PO SCH ×2 (01:11→21:13)
[2017-06-29] MEDS: Gabapentin 300 MG Cap PO SCH ×3 (01:12→21:14)
[2017-06-29] MEDS: Metoprolol Tartrate 50 MG Tab PO SCH ×3 (01:12→21:14)
[2017-06-29] MEDS ORDERED: Vancomycin 1 GM SDV IV SCH (07:00)
[2017-06-29] MEDS: Insulin Aspart 100 Units/ML 3 ML Pen SUBCUT SCH ×4 (07:23→21:19)
[2017-06-29] MEDS: Linezolid 600 MG in Premix Bag 1 BAG IV SCH ×2 (07:56→20:05)
[2017-06-29] MEDS: Furosemide 80 MG Tab PO SCH ×2 (07:56→13:34)
[2017-06-29] MEDS: Fenofibrate,Micronized 67 MG Cap PO SCH (08:22)
[2017-06-29] MEDS: Multivitamins with Iron/Calcium/Folic Acid/Minerals Tab PO SCH (08:22)
[2017-06-29] MEDS: Aspirin 325 MG Tab.EC PO SCH (08:22)
[2017-06-29] MEDS: Pantoprazole 40 MG Vial IVPUSH SCH (08:23)
[2017-06-29] MEDS ORDERED: FENOFIBRATE MICRONIZED 134 MG PO SCH ×2 (09:00)
[2017-06-29] MEDS: Piperacillin/Tazobactam/Dext 3.375 GM in Premix Bag 1 BAG IV SCH ×3 (09:03→19:25)
[2017-06-29] MEDS ORDERED: Sodium Chloride 0.9% 10 ML Syringe FLUSH PRN (09:12)
[2017-06-29] MEDS ORDERED: Vancomycin 1.75 GM in Sodium Chloride 0.9% 500 ML IV SCH (10:00)
--- NOTE | 2017-06-29 10:09 | PCM.PN ---
- General Info Date of Service: 06/29/17 Subjective Update: This patient is a 62-year-old gentleman who is admitted through the emergency department last night with cellulitis of his right lower extremity. He did bump the anterior aspect of the lower leg about a week ago and now over the past 24 hours has developed marked erythema and inflammation of the leg with tenderness. He presented to the emergency department with fever and elevated white blood cell count. Lactic acid level was normal and he was felt to have cellulitis of the right lower leg. Because of his history of diabetes he was placed on expanded IV antibiotic coverage with vancomycin and meropenem. His white count has come down and he has not had significant temperature elevation. Leg feels better and is less tender with less swelling and erythema. - Patient Data Vitals - Most Recent: Last Vital Signs Temp 98 F 06/29/17 08:00 Pulse 93 06/29/17 08:24 Resp 16 06/29/17 08:00 BP 151/79 H 06/29/17 08:24 Pulse Ox 97 06/29/17 08:00 Weight - Most Recent: 279 lb 8.738 oz I&O - Last 24 Hours: Intake & Output 06/28/17 06/29/17 06/29/17 22:59 06:59 14:59 Intake Total 889 760 Output Total 700 Balance 189 760 Lab Results Last 24 Hours: Laboratory Results - last 24 hr 06/29/17 06/29/17 06/29/17 Range/Units 05:18 05:18 05:18 WBC 11.1 H (4.5-11.0) K/uL RBC 4.20 L (4.30-5.90) M/uL Hgb 12.3 (12.0-15.0) g/dL Hct 37.3 L (40.0-54.0) % MCV 89 (80-98) fL MCH 29 (27-31) pg MCHC 33 (32-36) % Plt Count 321 (150-400) K/uL Neut % (Auto) 80 H (36-66) % Lymph % (Auto) 12 L (24-44) % [place] % (Auto) 6 (2-6) % Eos % (Auto) 2 (2-4) % Baso % (Auto) 0 (0-1) % PT (9.5-12.0) sec INR (0.80-1.20) Sodium 138 L (140-148) mmol/L Potassium 3.9 (3.6-5.2) mmol/L Chloride 101 (100-108) mmol/L Carbon Dioxide 28 (21-32) mmol/L Anion Gap 12.9 (5.0-14.0) mmol/L BUN 19 H (7-18) mg/dL Creatinine 1.0 (0.8-1.3) mg/dL Est Cr Clr Drug Dosing 90.19 mL/min Estimated GFR (MDRD) > 60 (>60) Glucose 238 H (74-106) mg/dL Lactic Acid 1.4 (0.4-2.0) mmol/L Calcium 8.7 (8.5-10.1) mg/dL 06/29/17 Range/Units 05:18 WBC (4.5-11.0) K/uL RBC (4.30-5.90) M/uL Hgb (12.0-15.0) g/dL Hct (40.0-54.0) % MCV (80-98) fL MCH (27-31) pg MCHC (32-36) % Plt Count (150-400) K/uL Neut % (Auto) (36-66) % Lymph % (Auto) (24-44) % [place] % (Auto) (2-6) % Eos % (Auto) (2-4) % Baso % (Auto) (0-1) % PT 21.4 H (9.5-12.0) sec INR 1.95 H (0.80-1.20) Sodium (140-148) mmol/L Potassium (3.6-5.2) mmol/L Chloride (100-108) mmol/L Carbon Dioxide (21-32) mmol/L Anion Gap (5.0-14.0) mmol/L BUN (7-18) mg/dL Creatinine (0.8-1.3) mg/dL Est Cr Clr Drug Dosing mL/min Estimated GFR (MDRD) (>60) Glucose (74-106) mg/dL Lactic Acid (0.4-2.0) mmol/L Calcium (8.5-10.1) mg/dL Med Orders - Current: Current Medications Albuterol (Ventolin Hfa) 0 gm INH Q4H PRN PRN Reason: Wheezing Albuterol (Proventil Neb Soln) 2.5 mg NEB Q4H PRN PRN Reason: Shortness Of Breath/wheezing Aspirin (Ecotrin) 325 mg PO DAILY [facility] Last Admin: 06/29/17 08:22 Dose: 325 mg Atorvastatin Calcium (Lipitor) 40 mg PO BEDTIME [facility] Last Admin: 06/29/17 01:11 Dose: 40 mg Bupropion HCl (Wellbutrin Xl) 300 mg PO BEDTIME [facility] Last Admin: 06/29/17 01:11 Dose: 300 mg Erythromycin (Erythromycin 0.5% Ophth Oint) 0 gm EYERT Q12H PRN PRN Reason: Itching Fenofibrate (Fenofibrate) 134 mg PO DAILY [facility] Last Admin: 06/29/17 08:22 Dose: 134 mg Furosemide (Lasix) 80 mg PO BIDDIURETIC [facility] Last Admin: 06/29/17 07:56 Dose: 80 mg Gabapentin (Neurontin) 300 mg PO BID [facility] Last Admin: 06/29/17 08:23 Dose: 300 mg Linezolid 600 mg/ Premix 300 mls @ 300 mls/hr IV Q12H [facility] Last Admin: 06/29/17 07:56 Dose: 300 mls/hr Piperacillin/Tazobactam/ (Dextrose 3.375 gm/ Premix) 50 mls @ 100 mls/hr IV Q6H [facility] Last Admin: 06/29/17 09:03 Dose: 100 mls/hr Insulin Aspart (Novolog) 0 unit SUBCUT QIDACANDBED [facility] PRN Reason: Protocol Last Admin: 06/29/17 07:23 Dose: 4 units Liraglutide (Victoza) 1.8 mg SUBCUT DAILY [facility] Metoprolol Tartrate (Lopressor) 50 mg PO BID [facility] Last Admin: 06/29/17 08:24 Dose: 50 mg Multivitamins/Minerals (Thera M Plus) 1 tab PO DAILY [facility] Last Admin: 06/29/17 08:22 Dose: 1 tab Nitroglycerin (Nitrostat) 0.4 mg SL ASDIRECTED PRN PRN Reason: chest pain Pantoprazole Sodium (Protonix Iv) 40 mg IVPUSH DAILY [facility] Last Admin: 06/29/17 08:23 Dose: 40 mg Sodium Chloride (Saline Flush) 10 ml FLUSH ASDIRECTED PRN PRN Reason: Keep Vein Open Tramadol HCl (Ultram) 50 mg PO 6XDAY PRN PRN Reason: Pain Warfarin Sodium (Coumadin) 15 mg PO DAILY@1300 [facility] Last Admin: 06/29/17 01:11 Dose: 15 mg Discontinued Medications Acetaminophen (Tylenol) 650 mg PO Q4H PRN PRN Reason: Pain (Mild 1-3)/fever Furosemide (Lasix) 80 mg PO BIDDIURETIC [facility] Last Admin: 06/29/17 01:11 Dose: Not Given Vancomycin HCl 1,000 mg/ (Dextrose/Water) 250 mls @ 167 mls/hr IV ONETIME ONE Stop: 06/28/17 23:17 Last Admin: 06/28/17 22:04 Dose: 167 mls/hr Dextrose/Water (Dextrose 5% In Water) Confirm Administered Dose 250 mls @ as directed .ROUTE .STK-MED ONE Stop: 06/28/17 21:54 Last Admin: 06/28/17 22:39 Dose: Not Given Meropenem 1 gm/ Sodium (Chloride) 50 mls @ 100 mls/hr IV Q8H [facility] Last Admin: 06/29/17 01:13 Dose: 100 mls/hr Sodium Chloride (Normal Saline) 1,000 mls @ 125 mls/hr IV ASDIRECTED [facility] Last Admin: 06/29/17 00:40 Dose: 125 mls/hr Sodium Chloride (Normal Saline) 1,000 mls @ 125 mls/hr IV ASDIRECTED [facility] Vancomycin HCl 1.75 gm/ Sodium (Chloride) 250 mls @ 125 mls/hr IV Q12H [facility] Meropenem 1 gm/ Sodium (Chloride) 50 mls @ 100 mls/hr IV Q8H [facility] Insulin Human Regular (Novolin R) 90 unit SUBCUT ONETIME ONE PRN Reason: Protocol Stop: 06/28/17 21:58 Last Admin: 06/28/17 22:39 Dose: Not Given Lorazepam (Ativan) 1 mg IV Q6H PRN PRN Reason: Nausea/Vomiting Ondansetron HCl (Zofran Odt) 4 mg PO Q6H PRN PRN Reason: Nausea able to take PO Oxycodone HCl (Oxycodone) 5 mg PO Q4H PRN PRN Reason: Pain (moderate 4-6) Sodium Chloride (Saline Flush) 10 ml FLUSH ASDIRECTED PRN PRN Reason: Keep Vein Open Last Admin: 06/28/17 21:39 Dose: 10 ml Vancomycin HCl (Vancomycin) Confirm Administered Dose 1 gm .ROUTE .STK-MED ONE Stop: 06/28/17 21:54 Last Admin: 06/28/17 22:39 Dose: Not Given Vancomycin HCl (Vancomycin) 1 gm IV .PHARMACY TO DOSE GONZALO Stop: 06/29/17 07:30 - Exam Quality Assessment: DVT Prophylaxis General: Alert, Oriented, Cooperative, Mild Distress Lungs: Clear to Auscultation, Normal Respiratory Effort Cardiovascular: Regular Rate, Regular Rhythm, No Murmurs GI/Abdominal Exam: Normal Bowel Sounds, Soft, Non-Tender, No Organomegaly, No Distention Extremities: Pedal Edema (Right leg), Leg Pain, Increased Warmth, Redness - Problem List Review Problem List Initiated/Reviewed/Updated: Yes - Plan Plan:: ASSESSMENT / PLAN Right lower leg Cellultis -Saline lock IV -IV Antibiotic; Vancomycin 1 gram IV every 12 hours -IV Antibiotic; Meropenem 1 gram IV every 8 hours -Wound culture; preliminary moderate gram + cocci, few gram - rods -blood cultures x2 pending Recent history of deep vein thrombosis -Continue outpatient dosing of warfarin -Repeat INR in a.m. Diabetes Type 2 -blood glucose check before meals and at bedtime -Insulin Novolog subcut medium sliding scale coverage -consistent carb diet Maintenance issues -Orders home meds: -Nutrition: consistent carb diet -Becerra catheter not indicated at this time -DVT: current DVT, Coumadin 15mg daily -PPI; IV Protonix 40mg daily CODE STATUS: FULL CODE Admission status: Admit to ICU Med-overflow Admission justification. This patient will be admitted for inpatient services and is medically appropriate meeting medical necessity for inpatient admission as outlined in my documentation. I reasonably expect the patient will require inpatient services that span. Time over 2 midnights. I reasonably expect this patient to be discharged or transferred within 96 hours after admission to the critical access hospital. Disposition; home Primary care provider: Dr. Romero, [facility], [place], [place].
[2017-06-29] MEDS: Liraglutide (rDNA Origin) 0.6 MG/0.1 ML 3 ML Pen SUBCUT SCH (10:22)
[2017-06-29] MEDS ORDERED: Warfarin 5 MG Tab PO SCH (13:00)
[2017-06-30] MEDS: Piperacillin/Tazobactam/Dext 3.375 GM in Premix Bag 1 BAG IV SCH ×4 (01:49→19:44)
[2017-06-30] MEDS: Insulin Aspart 100 Units/ML 3 ML Pen SUBCUT SCH ×4 (08:06→22:27)
[2017-06-30] MEDS: Liraglutide (rDNA Origin) 0.6 MG/0.1 ML 3 ML Pen SUBCUT SCH (08:27)
[2017-06-30] MEDS: Furosemide 80 MG Tab PO SCH ×2 (08:32→14:04)
[2017-06-30] MEDS: Aspirin 325 MG Tab.EC PO SCH (08:32)
[2017-06-30] MEDS: Linezolid 600 MG in Premix Bag 1 BAG IV SCH ×2 (08:32→20:26)
[2017-06-30] MEDS: Fenofibrate,Micronized 67 MG Cap PO SCH (08:35)
[2017-06-30] MEDS: Multivitamins with Iron/Calcium/Folic Acid/Minerals Tab PO SCH (08:37)
[2017-06-30] MEDS: Metoprolol Tartrate 50 MG Tab PO SCH ×2 (08:37→21:10)
[2017-06-30] MEDS: Gabapentin 300 MG Cap PO SCH ×2 (08:39→21:09)
[2017-06-30] MEDS: Pantoprazole 40 MG Vial IVPUSH SCH (08:40)
--- NOTE | 2017-06-30 09:34 | PCM.PN ---
- General Info Date of Service: 06/30/17 Subjective Update: This patient has been stable since yesterday, vital signs have been good and he has remained afebrile. Pain and swelling in the leg have significantly improved from admission. Appetite is been good and he has the leg elevated. Functional Status: Reports: Pain Controlled, Tolerating Diet - Review of Systems General: Denies: Fever, Weakness, Chills Pulmonary: Reports: No Symptoms Cardiovascular: Reports: No Symptoms Gastrointestinal: Reports: No Symptoms Musculoskeletal: Reports: Leg Pain - Patient Data Vitals - Most Recent: Last Vital Signs Temp 98.3 F 06/30/17 08:00 Pulse 82 06/30/17 08:37 Resp 20 06/30/17 08:00 BP 138/64 06/30/17 08:37 Pulse Ox 90 L 06/30/17 05:00 Weight - Most Recent: 279 lb 8.738 oz I&O - Last 24 Hours: Intake & Output 06/29/17 06/30/17 06/30/17 22:59 06:59 14:59 Intake Total 3440 50 Output Total 2900 1400 Balance 540 -1350 Lab Results Last 24 Hours: Laboratory Results - last 24 hr 06/30/17 06/30/17 Range/Units 05:17 05:17 WBC 9.3 (4.5-11.0) K/uL RBC 4.33 (4.30-5.90) M/uL Hgb 12.6 (12.0-15.0) g/dL Hct 38.7 L (40.0-54.0) % MCV 89 (80-98) fL MCH 29 (27-31) pg MCHC 33 (32-36) % Plt Count 301 (150-400) K/uL PT 24.7 H (9.5-12.0) sec INR 2.23 H (0.80-1.20) Julio Cesar Results Last 24 Hours: Microbiology 06/28/17 23:10 Aerobic Blood Culture - Preliminary Blood - Venous - Lab Draw NO GROWTH AFTER 1 DAY Anaerobic Blood Culture - Preliminary NO GROWTH AFTER 1 DAY Med Orders - Current: Current Medications Albuterol (Ventolin Hfa) 0 gm INH Q4H PRN PRN Reason: Wheezing Albuterol (Proventil Neb Soln) 2.5 mg NEB Q4H PRN PRN Reason: Shortness Of Breath/wheezing Aspirin (Ecotrin) 325 mg PO DAILY [facility] Last Admin: 06/30/17 08:32 Dose: 325 mg Atorvastatin Calcium (Lipitor) 40 mg PO BEDTIME [facility] Last Admin: 06/29/17 21:15 Dose: 40 mg Bupropion HCl (Wellbutrin Xl) 300 mg PO BEDTIME [facility] Last Admin: 06/29/17 21:13 Dose: 300 mg Erythromycin (Erythromycin 0.5% Ophth Oint) 0 gm EYERT Q12H PRN PRN Reason: Itching Fenofibrate (Fenofibrate) 134 mg PO DAILY [facility] Last Admin: 06/30/17 08:35 Dose: 134 mg Furosemide (Lasix) 80 mg PO BIDDIURETIC [facility] Last Admin: 06/30/17 08:32 Dose: 80 mg Gabapentin (Neurontin) 300 mg PO BID [facility] Last Admin: 06/30/17 08:39 Dose: 300 mg Linezolid 600 mg/ Premix 300 mls @ 300 mls/hr IV Q12H [facility] Last Admin: 06/30/17 08:32 Dose: 300 mls/hr Piperacillin/Tazobactam/ (Dextrose 3.375 gm/ Premix) 50 mls @ 100 mls/hr IV Q6H [facility] Last Admin: 06/30/17 07:43 Dose: 100 mls/hr Insulin Aspart (Novolog) 0 unit SUBCUT QIDACANDBED [facility] PRN Reason: Protocol Last Admin: 06/30/17 08:06 Dose: 6 units Liraglutide (Victoza) 1.8 mg SUBCUT DAILY [facility] Last Admin: 06/30/17 08:27 Dose: 1.8 mg Metoprolol Tartrate (Lopressor) 50 mg PO BID [facility] Last Admin: 06/30/17 08:37 Dose: 50 mg Multivitamins/Minerals (Thera M Plus) 1 tab PO DAILY [facility] Last Admin: 06/30/17 08:37 Dose: 1 tab Nitroglycerin (Nitrostat) 0.4 mg SL ASDIRECTED PRN PRN Reason: chest pain Pantoprazole Sodium (Protonix Iv) 40 mg IVPUSH DAILY [facility] Last Admin: 06/30/17 08:40 Dose: 40 mg Sodium Chloride (Saline Flush) 10 ml FLUSH ASDIRECTED PRN PRN Reason: Keep Vein Open Tramadol HCl (Ultram) 50 mg PO 6XDAY PRN PRN Reason: Pain Last Admin: 06/29/17 20:06 Dose: 50 mg Warfarin Sodium (Coumadin) 15 mg PO DAILY@1300 [facility] Last Admin: 06/29/17 13:34 Dose: 15 mg Discontinued Medications Acetaminophen (Tylenol) 650 mg PO Q4H PRN PRN Reason: Pain (Mild 1-3)/fever Furosemide (Lasix) 80 mg PO BIDDIURETIC [facility] Last Admin: 06/29/17 01:11 Dose: Not Given Vancomycin HCl 1,000 mg/ (Dextrose/Water) 250 mls @ 167 mls/hr IV ONETIME ONE Stop: 06/28/17 23:17 Last Admin: 06/28/17 22:04 Dose: 167 mls/hr Dextrose/Water (Dextrose 5% In Water) Confirm Administered Dose 250 mls @ as directed .ROUTE .STK-MED ONE Stop: 06/28/17 21:54 Last Admin: 06/28/17 22:39 Dose: Not Given Meropenem 1 gm/ Sodium (Chloride) 50 mls @ 100 mls/hr IV Q8H [facility] Last Admin: 06/29/17 01:13 Dose: 100 mls/hr Sodium Chloride (Normal Saline) 1,000 mls @ 125 mls/hr IV ASDIRECTED [facility] Last Admin: 06/29/17 00:40 Dose: 125 mls/hr Sodium Chloride (Normal Saline) 1,000 mls @ 125 mls/hr IV ASDIRECTED [facility] Vancomycin HCl 1.75 gm/ Sodium (Chloride) 250 mls @ 125 mls/hr IV Q12H [facility] Meropenem 1 gm/ Sodium (Chloride) 50 mls @ 100 mls/hr IV Q8H [facility] Insulin Human Regular (Novolin R) 90 unit SUBCUT ONETIME ONE PRN Reason: Protocol Stop: 06/28/17 21:58 Last Admin: 06/28/17 22:39 Dose: Not Given Lorazepam (Ativan) 1 mg IV Q6H PRN PRN Reason: Nausea/Vomiting Ondansetron HCl (Zofran Odt) 4 mg PO Q6H PRN PRN Reason: Nausea able to take PO Oxycodone HCl (Oxycodone) 5 mg PO Q4H PRN PRN Reason: Pain (moderate 4-6) Sodium Chloride (Saline Flush) 10 ml FLUSH ASDIRECTED PRN PRN Reason: Keep Vein Open Last Admin: 06/28/17 21:39 Dose: 10 ml Vancomycin HCl (Vancomycin) Confirm Administered Dose 1 gm .ROUTE .STK-MED ONE Stop: 06/28/17 21:54 Last Admin: 06/28/17 22:39 Dose: Not Given Vancomycin HCl (Vancomycin) 1 gm IV .PHARMACY TO DOSE [facility] Stop: 06/29/17 07:30 - Exam Quality Assessment: DVT Prophylaxis General: Alert, Oriented, Cooperative, No Acute Distress Lungs: Clear to Auscultation, Normal Respiratory Effort Cardiovascular: Regular Rate, Regular Rhythm, No Murmurs GI/Abdominal Exam: Normal Bowel Sounds, Soft, Non-Tender, No Organomegaly, No Distention Extremities: Pedal Edema, Leg Pain, Increased Warmth, Redness - Problem List Review Problem List Initiated/Reviewed/Updated: Yes - My Orders Last 24 Hours: My Active Orders 07/01/17 05:00 INR,PT,PROTHROMBIN TIME [COAG] Timed - Plan Plan:: ASSESSMENT / PLAN Right lower leg Cellultis -Saline lock IV -IV Antibiotic; Zyvox and meropenem -Wound culture; preliminary moderate gram + cocci, few gram - rods -blood cultures x2 pending Recent history of deep vein thrombosis -Continue outpatient dosing of warfarin -Repeat INR in a.m. Diabetes Type 2 -blood glucose check before meals and at bedtime -Insulin Novolog subcut medium sliding scale coverage -consistent carb diet Maintenance issues -Orders home meds: -Nutrition: consistent carb diet -Becerra catheter not indicated at this time -DVT: current DVT, Coumadin 15mg daily -PPI; IV Protonix 40mg daily CODE STATUS: FULL CODE Admission status: Admit to ICU Med-overflow Admission justification. This patient will be admitted for inpatient services and is medically appropriate meeting medical necessity for inpatient admission as outlined in my documentation. I reasonably expect the patient will require inpatient services that span. Time over 2 midnights. I reasonably expect this patient to be discharged or transferred within 96 hours after admission to the critical access hospital. Disposition; home possibly tomorrow Primary care provider: Dr. Romero, [facility], [place], [place].
[2017-06-30] MEDS: Warfarin 5 MG Tab PO SCH (12:49)
[2017-06-30] MEDS: atorvaSTATin 20 MG Tab PO SCH (21:09)
[2017-06-30] MEDS: buPROPion 150 MG Tab.ER PO SCH (21:09)
[2017-06-30] MEDS ORDERED: Insulin Aspart 100 Units/ML 3 ML Pen SUBCUT ONE (21:13)
--- NOTE | 2017-06-30 21:46 | PCM.SN ---
- Free Text/Narrative Note: call from 2 [facility] s; no complaints from Mr. Rosario o: blood glucose 405 a; hyper gylcemia in a diabetic patient p: give Novolog insulin 15 units subcut now, continue with close monitoring.
[2017-07-01] MEDS: Piperacillin/Tazobactam/Dext 3.375 GM in Premix Bag 1 BAG IV SCH ×2 (01:20→07:19)
[2017-07-01 07:16] VITALS: BP 112/63
[2017-07-01] MEDS: Furosemide 80 MG Tab PO SCH (07:18)
[2017-07-01] MEDS: Insulin Aspart 100 Units/ML 3 ML Pen SUBCUT SCH ×2 (07:25→12:13)
[2017-07-01] MEDS ORDERED: Pantoprazole 40 MG Tab.CR PO SCH (07:30)
[2017-07-01] MEDS: Aspirin 325 MG Tab.EC PO SCH (08:11)
[2017-07-01] MEDS: Linezolid 600 MG in Premix Bag 1 BAG IV SCH (08:11)
[2017-07-01] MEDS: Fenofibrate,Micronized 67 MG Cap PO SCH (08:11)
[2017-07-01] MEDS: Gabapentin 300 MG Cap PO SCH (08:11)
[2017-07-01] MEDS: Multivitamins with Iron/Calcium/Folic Acid/Minerals Tab PO SCH (08:11)
[2017-07-01] MEDS: Metoprolol Tartrate 50 MG Tab PO SCH (08:11)
[2017-07-01] MEDS: Liraglutide (rDNA Origin) 0.6 MG/0.1 ML 3 ML Pen SUBCUT SCH (08:12)
--- NOTE | 2017-07-01 11:09 | PCM.DCSUM1 ---
Discharge Summary - Hospital Course Brief History: Mr. Rosario is a 62-year-old gentleman who is admitted to the hospital with increased pain and swelling and inflammation of his right lower extremity consistent with cellulitis. - Discharge Data Discharge Date: 07/01/17 Discharge Disposition: Home, Self-Care 01 Condition: Fair - Discharge Diagnosis/Problem(s) (1) Cellulitis SNOMED Code(s): 570791068 ICD Code: L03.90 - CELLULITIS, UNSPECIFIED Status: Acute Priority: High Current Visit: Yes Qualifiers: Site of cellulitis: extremity Site of cellulitis of extremity: lower extremity Laterality: right Qualified Code(s): L03.115 - Cellulitis of right lower limb (2) Type 2 diabetes mellitus SNOMED Code(s): 01474827 ICD Code: E11.9 - TYPE 2 DIABETES MELLITUS WITHOUT COMPLICATIONS Status: Chronic Priority: High Current Visit: Yes Qualifiers: Diabetes mellitus complication status: with circulatory complication (3) Obesity (BMI 30-39.9) SNOMED Code(s): 644910504 ICD Code: E66.9 - OBESITY, UNSPECIFIED Status: Chronic Current Visit: No (4) Venous insufficiency Status: Chronic Current Visit: No - Patient Summary/Data Consults: Consultations 06/29/17 00:16 Consult to Physician [CONS] Routine Consulting Provider: Devin Lovett Call Completed to Consulting Physician: No: will call in am,no emergent Reason for Consult: right lower leg cellulitis with abscess, diabetic Hospital Course: Mr. Rosario is a 62-year-old gentleman who has been dealing with venous stasis of his right lower extremity. Approximately one week prior to admission he bumped the anterior aspect and then developed increased erythema in the leg and some drainage of purulent material from the area of injury. He was seen and evaluated in the emergency department and felt to have cellulitis of the right lower extremity. There was no evidence of associated sepsis, he was given IV fluids for hydration, blood cultures were obtained, as well as cultures from the wound. He was started on broad-spectrum IV antibiotic therapy because of his underlying history of type 2 diabetes mellitus. His white blood cell count was elevated on admission and glucose levels were elevated from baseline. He was monitored 4 times daily for glucose levels and treated with sliding scale NovoLog as well as his usual diabetic regimen. Surgical consult was obtained with Dr. Lovett who felt there was no obvious abscess that required draining. Over the next 2 days of his hospital stay the cellulitis resolved and he was feeling well. An Unna boot was placed on the right lower extremity by Dr. Lovett on the day of discharge. He will be discharged home on oral antibiotic therapy with Augmentin 875 mg twice daily and will also take probiotic therapy twice daily for the next month. Blood cultures remain negative up until the time of discharge, wound culture was growing gram-positive cocci as well as gram- negative rods consistent with diabetic infection. Follow-up appointment will be scheduled with Dr. Lovett for July 04. Follow-up appointment will be scheduled with his primary care provider within one week. He will decrease his daily dose of warfarin to 10 mg daily until he is completed his antibiotic therapy and then resume previous dose of 15 mg daily. Follow-up INR should be obtained on July 03. - Patient Instructions Diet: Low Sodium, Diabetic Diet Activity: As Tolerated Other/Special Instructions: Follow-up appointment with Dr. Lovett as previously noted. Please schedule follow-up appointment with Dr. Garcia within one week. Decrease daily dose of warfarin to 10 mg per day while taking antibiotic therapy , after antibiotic therapy is completed increase dose to previous level of 15 mg per day. Please arrange for follow-up INR level to be obtained at [facility] in [place] on July 03. - Discharge Plan Prescriptions/Med Rec: Amoxicillin/Potassium Clav [Augmentin 875-125 Tablet] 1 each PO BID #14 tablet Lactobacillus Acidophilus [Acidophilus Lactobacillus] 1 each PO BID #60 capsule Home Medications: Home Meds Aspirin [Ecotrin] 325 mg PO DAILY 06/28/13 [History] Cholecalciferol (Vitamin D3) [Vitamin D3] 2,000 unit PO DAILY 06/28/13 [History] Fenofibrate,Micronized [Fenofibrate] 134 mg PO DAILY 06/28/13 [History] Furosemide [Lasix] 80 mg PO BID 06/28/13 [History] Gabapentin [Neurontin] 300 mg PO BID 06/28/13 [History] Metoprolol Tartrate [Lopressor] 50 mg PO BID 06/28/13 [History] Multivitamin [Multivitamins] 1 each PO DAILY 06/28/13 [History] Omeprazole 20 mg PO BIDAC 11/16/13 [History] buPROPion [buPROPion XL] 300 mg PO BEDTIME 06/28/13 [History] metFORMIN HCl [Metformin HCl ER] 1,000 mg PO BID 06/28/13 [History] Albuterol [IJD: Albuterol HFA] 2 puff IH Q4HR PRN 02/10/16 [History] Erythromycin Base [Erythromycin 0.5% Ophth Oint] 1 applic OP Q12HR PRN 02/10/16 [History] Ibuprofen 800 mg PO Q6HR PRN 02/10/16 [History] Nitroglycerin [Nitrostat] 0.4 mg SL ASDIRECTED PRN 02/10/16 [History] Tadalafil [Cialis] 20 mg PO DAILY PRN 02/10/16 [History] Triamcinolone Acetonide [Triamcinolone Acetonide 0.1% Crm] 1 applic TOP ASDIRECTED PRN 02/10/16 [History] atorvaSTATin [Lipitor] 40 mg PO BEDTIME 02/10/16 [History] traMADol HCl [Ultram] 50 mg PO 6XDAY PRN 02/10/16 [History] Insulin Regular, Human [Humulin R U-500 Kwikpen] 90 units SQ BID 05/30/17 [ History] Insulin Regular, Human [Humulin R U-500 Kwikpen] 120 units SQ DAILY 05/30/17 [ History] Liraglutide [Victoza] 1.8 mg SQ DAILY 05/30/17 [History] Amoxicillin/Potassium Clav [Augmentin 875-125 Tablet] 1 each PO BID #14 tablet 07/01/17 [Rx] Lactobacillus Acidophilus [Acidophilus Lactobacillus] 1 each PO BID #60 capsule 07/01/17 [Rx] Warfarin Sodium 10 mg PO DAILY #0 07/01/17 [Rx] Forms: ED Department Discharge Referrals: Malina Garcia MD [Primary Care Provider] - - Patient Data Vitals - Most Recent: Last Vital Signs Temp 95.9 F 07/01/17 07:13 Pulse 84 07/01/17 08:11 Resp 18 07/01/17 07:13 BP 112/63 07/01/17 08:11 Pulse Ox 94 L 07/01/17 07:13 Weight - Most Recent: 279 lb 8.738 oz I&O - Last 24 hours: Intake & Output 06/30/17 07/01/17 07/01/17 22:59 06:59 14:59 Intake Total 1840 290 Output Total 1800 800 Balance 40 -800 290 Lab Results - Last 24 hrs: Laboratory Results - last 24 hr 07/01/17 Range/Units 06:29 PT 32.3 H (9.5-12.0) sec INR 2.89 H (0.80-1.20) [facility] Results - Last 24 hrs: Microbiology 06/28/17 23:10 Aerobic Blood Culture - Preliminary Blood - Venous - Lab Draw NO GROWTH AFTER 2 DAYS Anaerobic Blood Culture - Preliminary NO GROWTH AFTER 2 DAYS Med Orders - Current: Current Medications Albuterol (Ventolin Hfa) 0 gm INH Q4H PRN PRN Reason: Wheezing Albuterol (Proventil Neb Soln) 2.5 mg NEB Q4H PRN PRN Reason: Shortness Of Breath/wheezing Aspirin (Ecotrin) 325 mg PO DAILY [facility] Last Admin: 07/01/17 08:11 Dose: 325 mg Atorvastatin Calcium (Lipitor) 40 mg PO BEDTIME [facility] Last Admin: 06/30/17 21:09 Dose: 40 mg Bupropion HCl (Wellbutrin Xl) 300 mg PO BEDTIME [facility] Last Admin: 06/30/17 21:09 Dose: 300 mg Erythromycin (Erythromycin 0.5% Ophth Oint) 0 gm EYERT Q12H PRN PRN Reason: Itching Fenofibrate (Fenofibrate) 134 mg PO DAILY [facility] Last Admin: 07/01/17 08:11 Dose: 134 mg Furosemide (Lasix) 80 mg PO BIDDIURETIC [facility] Last Admin: 07/01/17 07:18 Dose: 80 mg Gabapentin (Neurontin) 300 mg PO BID [facility] Last Admin: 07/01/17 08:11 Dose: 300 mg Linezolid 600 mg/ Premix 300 mls @ 300 mls/hr IV Q12H [facility] Last Admin: 07/01/17 08:11 Dose: 300 mls/hr Piperacillin/Tazobactam/ (Dextrose 3.375 gm/ Premix) 50 mls @ 100 mls/hr IV Q6H [facility] Last Admin: 07/01/17 07:19 Dose: 100 mls/hr Insulin Aspart (Novolog) 0 unit SUBCUT QIDACANDBED [facility] PRN Reason: Protocol Last Admin: 07/01/17 07:25 Dose: 8 units Liraglutide (Victoza) 1.8 mg SUBCUT DAILY [facility] Last Admin: 07/01/17 08:12 Dose: 1.8 mg Metoprolol Tartrate (Lopressor) 50 mg PO BID [facility] Last Admin: 07/01/17 08:11 Dose: 50 mg Multivitamins/Minerals (Thera M Plus) 1 tab PO DAILY [facility] Last Admin: 07/01/17 08:11 Dose: 1 tab Nitroglycerin (Nitrostat) 0.4 mg SL ASDIRECTED PRN PRN Reason: chest pain Pantoprazole Sodium (Protonix) 40 mg PO ACBREAKFAST [facility] Last Admin: 07/01/17 07:17 Dose: 40 mg Sodium Chloride (Saline Flush) 10 ml FLUSH ASDIRECTED PRN PRN Reason: Keep Vein Open Tramadol HCl (Ultram) 50 mg PO 6XDAY PRN PRN Reason: Pain Last Admin: 06/29/17 20:06 Dose: 50 mg Warfarin Sodium (Coumadin) 15 mg PO DAILY@1300 [facility] Last Admin: 06/30/17 12:49 Dose: 15 mg Discontinued Medications Acetaminophen (Tylenol) 650 mg PO Q4H PRN PRN Reason: Pain (Mild 1-3)/fever Furosemide (Lasix) 80 mg PO BIDDIURETIC [facility] Last Admin: 06/29/17 01:11 Dose: Not Given Vancomycin HCl 1,000 mg/ (Dextrose/Water) 250 mls @ 167 mls/hr IV ONETIME ONE Stop: 06/28/17 23:17 Last Admin: 06/28/17 22:04 Dose: 167 mls/hr Dextrose/Water (Dextrose 5% In Water) Confirm Administered Dose 250 mls @ as directed .ROUTE .STK-MED ONE Stop: 06/28/17 21:54 Last Admin: 06/28/17 22:39 Dose: Not Given Meropenem 1 gm/ Sodium (Chloride) 50 mls @ 100 mls/hr IV Q8H [facility] Last Admin: 06/29/17 01:13 Dose: 100 mls/hr Sodium Chloride (Normal Saline) 1,000 mls @ 125 mls/hr IV ASDIRECTED [facility] Last Admin: 06/29/17 00:40 Dose: 125 mls/hr Sodium Chloride (Normal Saline) 1,000 mls @ 125 mls/hr IV ASDIRECTED [facility] Vancomycin HCl 1.75 gm/ Sodium (Chloride) 250 mls @ 125 mls/hr IV Q12H [facility] Meropenem 1 gm/ Sodium (Chloride) 50 mls @ 100 mls/hr IV Q8H [facility] Insulin Aspart (Novolog) 15 unit SUBCUT ONETIME ONE Stop: 06/30/17 21:14 Last Admin: 06/30/17 21:20 Dose: 15 units Insulin Human Regular (Novolin R) 90 unit SUBCUT ONETIME ONE PRN Reason: Protocol Stop: 06/28/17 21:58 Last Admin: 06/28/17 22:39 Dose: Not Given Lorazepam (Ativan) 1 mg IV Q6H PRN PRN Reason: Nausea/Vomiting Ondansetron HCl (Zofran Odt) 4 mg PO Q6H PRN PRN Reason: Nausea able to take PO Oxycodone HCl (Oxycodone) 5 mg PO Q4H PRN PRN Reason: Pain (moderate 4-6) Pantoprazole Sodium (Protonix Iv) 40 mg IVPUSH DAILY [facility] Last Admin: 06/30/17 08:40 Dose: 40 mg Sodium Chloride (Saline Flush) 10 ml FLUSH ASDIRECTED PRN PRN Reason: Keep Vein Open Last Admin: 06/28/17 21:39 Dose: 10 ml Vancomycin HCl (Vancomycin) Confirm Administered Dose 1 gm .ROUTE .STK-MED ONE Stop: 06/28/17 21:54 Last Admin: 06/28/17 22:39 Dose: Not Given Vancomycin HCl (Vancomycin) 1 gm IV .PHARMACY TO DOSE [facility] Stop: 06/29/17 07:30 *Q Meaningful Use (DIS) - VTE *Q VTE Criteria *Q: - Stroke *Q Stroke Criteria *Q: - AMI *Q AMI Criteria *Q:
[2017-07-01] MEDS ORDERED: Insulin Aspart 100 Units/ML 3 ML Pen SUBCUT ONE (11:42)
[2017-07-01] MEDS: Warfarin 5 MG Tab PO SCH (12:02)
--- NOTE | 2017-07-02 10:33 | PN ---
DATE OF SERVICE: 06/30/2017 The patient has been clinically stable. The amount of swelling and cellulitis in his calf has decreased. After discussion of the situation, plan will be to continue the IV antibiotics for today, and then most likely, he will be discharged home tomorrow. Prior to discharge, we will place an Unna boot, and I think, if he does a series of Unna boots, the venous stasis ulcers will both heal, and it will be somewhat preventative of recurrent infection, as well as reducing the edema in the area. Devin Lovett MD /[id number]
--- NOTE | 2017-07-02 11:22 | PN ---
DATE OF SERVICE: 07/01/2017 The patient has been afebrile with stable vital signs. Clinically, his leg looks good and there is minimal cellulitis at this point, and obviously no abscess and no significant drainage noted. Unna boot was applied and we will see him back in 3 days, i.e., this coming Sunday for change of the Unna boot and we will start until things are healed up and switch over to some elastic stockings at that point. Devin Lovett MD /[id number]
--- NOTE | 2017-07-02 14:10 | OR ---
DATE OF PROCEDURE: 07/01/2017 PREOPERATIVE DIAGNOSIS: Right venous stasis ulcer. POSTOPERATIVE DIAGNOSIS: Right venous stasis ulcer. OPERATIVE PROCEDURE: Application of Unna boot to right calf ([id number]). DETAILS OF PROCEDURE: The patient was placed in a supine position on the hospital bed with his toes being held to elevate the foot. Unna boot was then placed from the base of the toes to the upper calf and over this a 4-inch Andrew wrap placed on the right calf and tape applied. There were no evident problems. Devin Lovett MD /[id number]
== END 2017-07-01 13:05 | disposition home or self-care (01) | DRG 603 ==
LOC: JP.ED 20:42 → UNDOADMIN 23:06 → JP.ICU 23:06 → JP.MS 06-30 10:00 → JP.ICU 06-30 10:00 → UNDODISIN 07-01 13:05
PROVIDERS: ADMIT Hospitalist; ATTEND Hospitalist
PROC: 2W3QXYZ Immobilization of Right Lower Leg using Other Device (ICD-10-PCS; principal; 2017-07-01)
DX: L03.115 Cellulitis of right lower limb (principal); E11.9 Type 2 diabetes mellitus without complications; I87.2 Venous insufficiency (chronic) (peripheral); E66.9 Obesity, unspecified; Z68.30 Body mass index [BMI] 30.0-30.9, adult; Z79.01 Long term (current) use of anticoagulants; Z79.4 Long term (current) use of insulin; I10 Essential (primary) hypertension; Z86.73 Personal history of transient ischemic attack (TIA), and cerebral infarction without residual deficits; E11.65 Type 2 diabetes mellitus with hyperglycemia; Z86.718 Personal history of other venous thrombosis and embolism
CPT/HCPCS: 36415; 80053; 81001; 82150; 83605; 83690; 85025; 85610; 87040; 87070; 87077; 87186; 87205; 96365; 99284; J3370; J7050; J7060; 80048; 82962; 85027; A9270-GY; C9113; J2020; J2185; J2543; J7040

== ENCOUNTER 2017-08-01 08:35 | Inpatient (IN) | payer MEDICARE, BC ==
[2017-08-01] MEDS ORDERED: Ibuprofen 600 MG Tab PO ONE (08:51)
[2017-08-01] MEDS ORDERED: Sodium Chloride 0.9% 1,000 ML IV SCH ×3 (09:00→10:30)
--- NOTE | 2017-08-01 09:07 | EDM.PDOC ---
ED HPI GENERAL MEDICAL PROBLEM - General Chief Complaint: Skin Complaint Stated Complaint: [facility] Time Seen by Provider: 08/01/17 09:06 Source of Information: Reports: Patient History Limitations: Reports: No Limitations - History of Present Illness INITIAL COMMENTS - FREE TEXT/NARRATIVE: pt arrived this am feeling very ill. He was naueated. He did not vomit. He noted pain in his let leg and thought he was developing a infection in the leg. He started to have shaking chills. Onset: Today Duration: Hour(s):, Getting Worse Location: Reports: Lower Extremity, Left Associated Symptoms: Reports: No Other Symptoms Left Lower Leg Pain Score (Numeric/FACES): 10 - Related Data Allergies Allergy/AdvReac Type Severity Reaction Status Date / Time methyldopa [From Aldomet] Allergy Cough Verified 08/01/17 09:13 methyldopate HCl Allergy Cough Verified 08/01/17 09:13 [From Aldomet] Home Meds: Home Meds Aspirin [Ecotrin] 325 mg PO DAILY 06/28/13 [History] Cholecalciferol (Vitamin D3) [Vitamin D3] 2,000 unit PO DAILY 06/28/13 [History] Fenofibrate,Micronized [Fenofibrate] 134 mg PO DAILY 06/28/13 [History] Furosemide [Lasix] 80 mg PO BID 06/28/13 [History] Gabapentin [Neurontin] 300 mg PO BID 06/28/13 [History] Metoprolol Tartrate [Lopressor] 50 mg PO BID 06/28/13 [History] Multivitamin [Multivitamins] 1 each PO DAILY 06/28/13 [History] Omeprazole 20 mg PO BIDAC 06/28/13 [History] buPROPion [buPROPion XL] 300 mg PO BEDTIME 06/28/13 [History] Albuterol [IJD: Albuterol HFA] 2 puff IH Q4HR PRN 02/10/16 [History] Ibuprofen 800 mg PO Q6HR PRN 02/10/16 [History] Nitroglycerin [Nitrostat] 0.4 mg SL ASDIRECTED PRN 02/10/16 [History] Tadalafil [Cialis] 20 mg PO DAILY PRN 02/10/16 [History] Triamcinolone Acetonide [Triamcinolone Acetonide 0.1% Crm] 1 applic TOP ASDIRECTED PRN 02/10/16 [History] atorvaSTATin [Lipitor] 40 mg PO BEDTIME 02/10/16 [History] traMADol HCl [Ultram] 50 mg PO 6XDAY PRN 02/10/16 [History] Insulin Regular, Human [Humulin R U-500 Kwikpen] 90 units SQ BID 05/30/17 [ History] Insulin Regular, Human [Humulin R U-500 Kwikpen] 120 units SQ DAILY 05/30/17 [ History] Liraglutide [Victoza] 1.8 mg SQ DAILY 05/30/17 [History] Lactobacillus Acidophilus [Acidophilus Lactobacillus] 1 each PO BID #60 capsule 07/01/17 [Rx] Warfarin Sodium 10 mg PO DAILY #0 07/01/17 [Rx] metFORMIN HCl [Metformin HCl] 1,000 mg PO BID 08/02/17 [History] Past Medical History Cardiovascular History: Reports: Bypass, CAD, High Cholesterol, Hypertension Respiratory History: Reports: Asthma Musculoskeletal History: Reports: Other (See Below) Other Musculoskeletal History: bilateral rotator cuff surgery Psychiatric History: Reports: Depression Endocrine/Metabolic History: Reports: Diabetes, Type II Dermatologic History: Reports: Cellulitis - Infectious Disease History Infectious Disease History: Reports: Chicken Pox - Past Surgical History HEENT Surgical History: Reports: Tonsillectomy Cardiovascular Surgical History: Reports: Coronary Artery Bypass GI Surgical History: Reports: Colonoscopy Musculoskeletal Surgical History: Reports: Arthroscopic Knee, Shoulder Surgery Social & Family History - Family History Family Medical History: Noncontributory - Tobacco Use Smoking Status *Q: Never Smoker Years of Tobacco use: 2 Packs/Tins Daily: 0.5 Second Hand Smoke Exposure: No - Caffeine Use Caffeine Use: Reports: Coffee - Alcohol Use Days Per Week of Alcohol Use: 0 - Recreational Drug Use Recreational Drug Use: No - Living Situation & Occupation Living situation: Reports: with Significant Other (Lives in [place] with significant other, has 1 child who lives [place], [place].) Occupation: Retired ED ROS GENERAL - Review of Systems Review Of Systems: See Below Constitutional: Reports: Fever, Chills, Malaise HEENT: Reports: No Symptoms Respiratory: Reports: No Symptoms Cardiovascular: Reports: No Symptoms Endocrine: Reports: No Symptoms GI/Abdominal: Reports: No Symptoms : Reports: No Symptoms Musculoskeletal: Reports: No Symptoms Skin: Reports: No Symptoms ( pt is alert at this time nd able to give a history. ) Neurological: Reports: No Symptoms Psychiatric: Reports: No Symptoms ED EXAM, SKIN/RASH Exam: See Below Text/Narrative:: pt arrived with chilling and a temp over 104. He woke up this am and had pain in the left leg. He did not feel well. He seemed vague and was having trouble thinking. Exam Limited By: No Limitations General Appearance: Alert, Anxious, Moderate Distress Ears: Normal TMs Nose: Normal Inspection Throat/Mouth: Normal Inspection Head: Atraumatic Neck: Normal Inspection Respiratory/Chest: No Respiratory Distress Cardiovascular: Regular Rate, Rhythm, Tachycardia GI/Abdominal: Soft, Non-Tender (Male) Exam: Deferred Rectal (Males) Exam: Deferred Back Exam: Normal Inspection Extremities: Other ( Left ant lower leg looks red and feels hot. It is quite tender. He hs some residual tenderness in the rt leg. He had cellulitis earlier in that. ) Neurological: Alert, Oriented, Normal Cognition Location, Skin: Upper Extremity, Left Course - Vital Signs Last Recorded V/S: Last Vital Signs Temp 36.7 C 08/03/17 02:00 Pulse 73 08/03/17 06:00 Resp 18 08/03/17 06:00 BP 106/41 L 08/03/17 06:00 Pulse Ox 94 L 08/03/17 06:00 - Orders/Labs/Meds Orders: Medication Orders Acetaminophen (Tylenol) 650 mg PO Q4H PRN PRN Reason: Pain (Mild 1-3)/fever Last Admin: 08/02/17 21:14 Dose: 650 mg Admin: 08/01/17 15:12 Dose: 650 mg Albuterol (Proventil Neb Soln) 2.5 mg NEB Q4H PRN PRN Reason: Shortness Of Breath/wheezing Aspirin (Ecotrin) 325 mg PO DAILY [facility] Last Admin: 08/02/17 08:00 Dose: 325 mg Atorvastatin Calcium (Lipitor) 40 mg PO BEDTIME [facility] Last Admin: 08/02/17 21:13 Dose: 40 mg Admin: 08/01/17 20:26 Dose: 40 mg Bupropion HCl (Wellbutrin Xl) 300 mg PO BEDTIME [facility] Last Admin: 08/02/17 21:14 Dose: 300 mg Admin: 08/01/17 20:29 Dose: 300 mg Fenofibrate (Fenofibrate) 134 mg PO DAILY [facility] Last Admin: 08/02/17 08:00 Dose: 134 mg Furosemide (Lasix) 80 mg PO BIDDIURETIC [facility] Last Admin: 08/02/17 13:07 Dose: 80 mg Admin: 08/02/17 07:59 Dose: 80 mg Gabapentin (Neurontin) 300 mg PO BID [facility] Last Admin: 08/02/17 21:13 Dose: 300 mg Admin: 08/02/17 08:02 Dose: 300 mg Admin: 08/01/17 20:26 Dose: 300 mg Piperacillin/Tazobactam/ (Dextrose 3.375 gm/ Premix) 50 mls @ 100 mls/hr IV Q6H [facility] Last Admin: 08/03/17 04:04 Dose: 100 mls/hr Admin: 08/02/17 21:16 Dose: 100 mls/hr Admin: 08/02/17 16:10 Dose: 100 mls/hr Admin: 08/02/17 09:22 Dose: 100 mls/hr Admin: 08/02/17 04:17 Dose: 100 mls/hr Admin: 08/01/17 21:28 Dose: 100 mls/hr Admin: 08/01/17 16:18 Dose: 100 mls/hr Vancomycin HCl 1.75 gm/ Sodium (Chloride) 250 mls @ 150 mls/hr IV Q12H [facility] Last Admin: 08/02/17 22:35 Dose: 150 mls/hr Admin: 08/02/17 10:37 Dose: 150 mls/hr Admin: 08/01/17 22:39 Dose: 150 mls/hr Sodium Chloride (Normal Saline) 1,000 mls @ 25 mls/hr IV ASDIRECTED [facility] Last Admin: 08/02/17 22:33 Dose: 25 mls/hr Ibuprofen (Motrin) 600 mg PO Q6H PRN PRN Reason: Pain/Fever Last Admin: 08/02/17 19:40 Dose: 600 mg Admin: 08/02/17 01:52 Dose: 600 mg Admin: 08/01/17 13:52 Dose: 600 mg Insulin Aspart (Novolog) 0 unit SUBCUT QIDACANDBED [facility] PRN Reason: Protocol Last Admin: 08/03/17 07:27 Dose: Not Given Admin: 08/02/17 21:01 Dose: Not Given Admin: 08/02/17 16:17 Dose: 3 units Admin: 08/02/17 11:14 Dose: 6 units Admin: 08/02/17 07:25 Dose: Admin: 08/01/17 20:54 Dose: 3 units Admin: 08/01/17 16:35 Dose: 3 units Admin: 08/01/17 11:51 Dose: 6 units Insulin Human Regular (Novolin R) 90 unit SUBCUT BIDAC [facility] Last Admin: 08/03/17 07:12 Dose: 90 units Admin: 08/02/17 16:14 Dose: 90 units Admin: 08/02/17 07:56 Dose: 90 units Admin: 08/01/17 16:34 Dose: 90 units Admin: 08/01/17 11:46 Dose: 90 units Lactobacillus Rhamnosus (Culturelle) 1 cap PO BID [facility] Last Admin: 08/02/17 21:12 Dose: 1 cap Admin: 08/02/17 07:59 Dose: 1 cap Admin: 08/01/17 20:27 Dose: 1 cap Liraglutide (Victoza) 1.8 mg SUBCUT DAILY [facility] Last Admin: 08/02/17 08:02 Dose: 1.8 mg Metformin HCl (Glucophage) 1,000 mg PO BIDMEALS [facility] Last Admin: 08/02/17 16:13 Dose: 1,000 mg Metoprolol Tartrate (Lopressor) 50 mg PO BID [facility] Last Admin: 08/02/17 21:11 Dose: 50 mg Admin: 08/02/17 08:01 Dose: 50 mg Admin: 08/01/17 20:27 Dose: 50 mg Ondansetron HCl (Zofran Odt) 4 mg PO Q6H PRN PRN Reason: Nausea able to take PO Ondansetron HCl (Zofran) 4 mg IV Q6H PRN PRN Reason: Nausea/Vomiting Oxycodone HCl (Oxycodone) 5 mg PO Q4H PRN PRN Reason: Pain (moderate 4-6) Last Admin: 08/02/17 21:15 Dose: 5 mg Pantoprazole Sodium (Protonix) 40 mg PO BIDAC [facility] Last Admin: 08/03/17 07:29 Dose: 40 mg Admin: 08/02/17 16:12 Dose: 40 mg Admin: 08/02/17 07:57 Dose: 40 mg Admin: 08/01/17 16:38 Dose: 40 mg Polyethylene Glycol (Miralax) 17 gm PO DAILY PRN PRN Reason: Constipation Tramadol HCl (Ultram) 50 mg PO 6XDAY PRN PRN Reason: Pain Warfarin Sodium (Coumadin) 10 mg PO DAILY@1300 [facility] Last Admin: 08/02/17 13:07 Dose: 10 mg Admin: 08/01/17 13:46 Dose: 10 mg Labs: Laboratory Tests 08/01/17 08/01/17 08/01/17 Range/Units 08:53 08:55 08:55 WBC 14.0 H (4.5-11.0) K/uL RBC 4.99 (4.30-5.90) M/uL Hgb 14.4 (12.0-15.0) g/dL Hct 43.8 (40.0-54.0) % MCV 88 (80-98) fL MCH 29 (27-31) pg MCHC 33 (32-36) % Plt Count 309 (150-400) K/uL Neut % (Auto) 90 H (36-66) % Lymph % (Auto) 5 L (24-44) % [place] % (Auto) 5 (2-6) % Eos % (Auto) 0 L (2-4) % Baso % (Auto) 0 (0-1) % PT (9.5-12.0) sec INR (0.80-1.20) Puncture Site Rt brachial ABG pH 7.432 (7.350-7.450) ABG pCO2 40.1 (35.0-42.0) mmHg ABG pO2 73.7 L (75.0-100.0) mmHg ABG HCO3 26.3 H (22.0-26.0) mmol/L ABG Total CO2 23.1 (23.0-27.0) mmol/L ABG O2 Saturation 95.2 (95.0-98.0) % ABG O2 Content 17.8 (15.0-23.0) %vol ABG Base Excess 2.4 mm/L ABG Hemoglobin 13.6 (13.5-18.0) g/dL ABG Oxyhemoglobin 92.8 % ABG Carboxyhemoglobin 1.7 H (0.0-1.6) % ABG Methemoglobin 0.8 % Kailash Test Passed O2 Delivery Device Nasal cannula Oxygen Flow Rate 2 L Sodium 137 L (140-148) mmol/L Potassium 4.1 (3.6-5.2) mmol/L Chloride 96 L (100-108) mmol/L Carbon Dioxide 30 (21-32) mmol/L Anion Gap 15.1 H (5.0-14.0) mmol/L BUN 15 (7-18) mg/dL Creatinine 1.1 (0.8-1.3) mg/dL Est Cr Clr Drug Dosing 81.99 mL/min Estimated GFR (MDRD) > 60 (>60) Glucose 275 H (74-106) mg/dL Lactic Acid (0.4-2.0) mmol/L Calcium 9.1 (8.5-10.1) mg/dL Total Bilirubin 0.6 (0.2-1.0) mg/dL AST 32 (15-37) U/L ALT 53 D (12-78) U/L Alkaline Phosphatase 71 (46-116) U/L Total Protein 7.7 (6.4-8.2) g/dL Albumin 3.9 (3.4-5.0) g/dL Globulin 3.8 H (2.3-3.5) g/dL Albumin/Globulin Ratio 1.0 L (1.2-2.2) 08/01/17 08/01/17 Range/Units 08:55 09:07 WBC (4.5-11.0) K/uL RBC (4.30-5.90) M/uL Hgb (12.0-15.0) g/dL Hct (40.0-54.0) % MCV (80-98) fL MCH (27-31) pg MCHC (32-36) % Plt Count (150-400) K/uL Neut % (Auto) (36-66) % Lymph % (Auto) (24-44) % [place] % (Auto) (2-6) % Eos % (Auto) (2-4) % Baso % (Auto) (0-1) % PT 14.6 H (9.5-12.0) sec INR 1.35 H (0.80-1.20) Puncture Site ABG pH (7.350-7.450) ABG pCO2 (35.0-42.0) mmHg ABG pO2 (75.0-100.0) mmHg ABG HCO3 (22.0-26.0) mmol/L ABG Total CO2 (23.0-27.0) mmol/L ABG O2 Saturation (95.0-98.0) % ABG O2 Content (15.0-23.0) %vol ABG Base Excess mm/L ABG Hemoglobin (13.5-18.0) g/dL ABG Oxyhemoglobin % ABG Carboxyhemoglobin (0.0-1.6) % ABG Methemoglobin % Kailash Test O2 Delivery Device Oxygen Flow Rate L Sodium (140-148) mmol/L Potassium (3.6-5.2) mmol/L Chloride (100-108) mmol/L Carbon Dioxide (21-32) mmol/L Anion Gap (5.0-14.0) mmol/L BUN (7-18) mg/dL Creatinine (0.8-1.3) mg/dL Est Cr Clr Drug Dosing mL/min Estimated GFR (MDRD) (>60) Glucose (74-106) mg/dL Lactic Acid 3.4 H (0.4-2.0) mmol/L Calcium (8.5-10.1) mg/dL Total Bilirubin (0.2-1.0) mg/dL AST (15-37) U/L ALT (12-78) U/L Alkaline Phosphatase (46-116) U/L Total Protein (6.4-8.2) g/dL Albumin (3.4-5.0) g/dL Globulin (2.3-3.5) g/dL Albumin/Globulin Ratio (1.2-2.2) Meds: Medications Generic Name Dose Route Start Last Admin Trade Name Freq PRN Reason Stop Dose Admin Acetaminophen 650 mg 08/01/17 11:10 08/02/17 21:14 Tylenol PO 650 mg Q4H PRN Administration Pain (Mild 1-3)/fever Albuterol 2.5 mg 08/01/17 11:10 Proventil Neb Soln NEB Q4H PRN Shortness Of Breath/wheezing Aspirin 325 mg 08/02/17 09:00 08/02/17 08:00 Ecotrin PO 325 mg DAILY [facility] Administration Atorvastatin Calcium 40 mg 08/01/17 21:00 08/02/17 21:13 Lipitor PO 40 mg BEDTIME [facility] Administration Bupropion HCl 300 mg 08/01/17 21:00 08/02/17 21:14 Wellbutrin Xl PO 300 mg BEDTIME [facility] Administration Fenofibrate 134 mg 08/02/17 09:00 08/02/17 08:00 Fenofibrate PO 134 mg DAILY [facility] Administration Furosemide 80 mg 08/02/17 08:00 08/02/17 13:07 Lasix PO 80 mg BIDDIURETIC [facility] Administration Gabapentin 300 mg 08/01/17 21:00 08/02/17 21:13 Neurontin PO 300 mg BID [facility] Administration Piperacillin/Tazobactam/ 50 mls @ 100 mls/hr 08/01/17 16:00 08/03/17 04:04 Dextrose 3.375 gm/ Premix IV 100 mls/hr Q6H [facility] Administration Vancomycin HCl 1.75 gm/ Sodium 250 mls @ 150 mls/hr 08/01/17 23:00 08/02/17 22:35 Chloride IV 150 mls/hr Q12H [facility] Administration Sodium Chloride 1,000 mls @ 25 mls/hr 08/02/17 09:00 08/02/17 22:33 Normal Saline IV 25 mls/hr ASDIRECTED [facility] Administration Ibuprofen 600 mg 08/01/17 11:10 08/02/17 19:40 Motrin PO 600 mg Q6H PRN Administration Pain/Fever Insulin Aspart 0 unit 08/01/17 11:10 08/03/17 07:27 Novolog SUBCUT Not Given QIDACANDBED [facility] Protocol Insulin Human Regular 90 unit 08/01/17 11:10 08/03/17 07:12 Novolin R SUBCUT 90 units BIDAC [facility] Administration Lactobacillus Rhamnosus 1 cap 08/01/17 21:00 08/02/17 21:12 Culturelle PO 1 cap BID [facility] Administration Liraglutide 1.8 mg 08/02/17 09:00 08/02/17 08:02 Victoza SUBCUT 1.8 mg DAILY [facility] Administration Metformin HCl 1,000 mg 08/02/17 17:00 08/02/17 16:13 Glucophage PO 1,000 mg BIDMEALS [facility] Administration Metoprolol Tartrate 50 mg 08/01/17 21:00 08/02/17 21:11 Lopressor PO 50 mg BID [facility] Administration Ondansetron HCl 4 mg 08/01/17 11:10 Zofran Odt PO Q6H PRN Nausea able to take PO Ondansetron HCl 4 mg 08/01/17 11:10 Zofran IV Q6H PRN Nausea/Vomiting Oxycodone HCl 5 mg 08/01/17 11:10 08/02/17 21:15 Oxycodone PO 5 mg Q4H PRN Administration Pain (moderate 4-6) Pantoprazole Sodium 40 mg 08/01/17 16:30 08/03/17 07:29 Protonix PO 40 mg BIDAC [facility] Administration Polyethylene Glycol 17 gm 08/01/17 11:10 Miralax PO DAILY PRN Constipation Tramadol HCl 50 mg 08/01/17 11:10 Ultram PO 6XDAY PRN Pain Warfarin Sodium 10 mg 08/01/17 13:00 08/02/17 13:07 Coumadin PO 10 mg DAILY@1300 [facility] Administration Discontinued Medications Generic Name Dose Route Start Last Admin Trade Name Freq PRN Reason Stop Dose Admin Sodium Chloride 1,000 mls @ 999 mls/hr 08/01/17 09:00 08/01/17 09:00 Normal Saline IV 999 mls/hr ASDIRECTED [facility] Administration Sodium Chloride 1,000 mls @ 999 mls/hr 08/01/17 09:15 08/01/17 09:50 Normal Saline IV 999 mls/hr ASDIRECTED [facility] Administration Vancomycin HCl 2 gm/ Sodium 250 mls @ 150 mls/hr 08/01/17 09:47 08/01/17 10: 10 Chloride IV 08/01/17 11:26 150 mls/hr ONETIME ONE Administration Piperacillin/Tazobactam/ 50 mls @ 100 mls/hr 08/01/17 11:00 08/01/17 10:33 Dextrose 3.375 gm/ Premix IV 08/01/17 11:29 100 mls/hr ONETIME ONE Administration Sodium Chloride 1,000 mls @ 999 mls/hr 08/01/17 10:30 08/01/17 10:42 Normal Saline IV 999 mls/hr ASDIRECTED [facility] Administration Sodium Chloride 500 mls @ 500 mls/hr 08/01/17 11:10 08/01/17 11:36 Normal Saline IV 08/01/17 13:11 500 mls/hr .BOLUS GONZALO Administration Sodium Chloride 1,000 mls @ 125 mls/hr 08/01/17 11:10 08/02/17 02:53 Normal Saline IV 125 mls/hr ASDIRECTED [facility] Administration Ibuprofen 600 mg 08/01/17 08:51 08/01/17 09:00 Motrin PO 08/01/17 08:52 600 mg ONETIME ONE Administration Metformin HCl 1,000 mg 08/01/17 17:00 08/02/17 07:57 Glucophage Xr PO 1,000 mg BIDMEALS [facility] Administration - Re-Assessments/Exams Free Text/Narrative Re-Assessment/Exam: 08/01/17 10:12 pt had a wbc ow 14,000. he had a temp of greater than 104. His o2 sats were down and he had an elevated lactic acid. he was give 2 liters rapidly, He was started o vancomycin and zosyn. He was given motrin 600mg for the fever. After the fluids and getting his temp down he felt much better. Departure - Departure Time of Disposition: 10:14 Disposition: Admitted As Inpatient 67 Condition: Fair Clinical Impression: Sepsis Qualifiers: Sepsis type: sepsis due to unspecified organism Qualified Code(s): A41.9 - Sepsis, unspecified organism Cellulitis Qualifiers: Site of cellulitis: extremity Site of cellulitis of extremity: lower extremity Laterality: unspecified laterality Qualified Code(s): L03.119 - Cellulitis of unspecified part of limb - Discharge Information
[2017-08-01] MEDS ORDERED: Piperacillin/Tazobactam 3.375 GM in Sodium Chloride 0.9% 50 ML IV ONE (09:51)
--- NOTE | 2017-08-01 10:42 | PCM.HP ---
H&P History of Present Illness - General Date of Service: 08/01/17 Admit Problem/Dx: Admission Diagnosis/Problem Admission Diagnosis/Problem Cellulitis of leg Source of Information: Patient, Family, Provider History Limitations: Reports: No Limitations - History of Present Illness Initial Comments - Free Text/Narative: Ted presents to the emergency room today with subjective fevers, shaking chills as well as bilateral lower leg pain, redness and swelling. He felt well yesterday but overnight developed pain in both of his lower legs. Shortly thereafter he developed redness and swelling followed by a feeling of warmth and then shaking chills. He became weak and a little confused. He was so weak that he could not walk out to the car when his brother came to pick him up to bring him to the emergency room. He describes sharp pain in both lower legs. This is moderate in severity and does not radiate. He hasn't taken anything to make it feel better. Moving around and any pressure on the legs causes the pain to increase. He has had a couple of similar episodes recently and this feels very similar. No complaints of abdominal pain or diarrhea but he has had some nausea. His blood sugars have been more elevated in the past 24 hours than usual. Workup in the emergency room was remarkable for bilateral lower leg cellulitis as well as sepsis. He will be admitted to the intensive care unit for further management. He has received fluid bolus and antibiotics. Left Lower Leg Pain Score (Numeric/FACES): 10 - Related Data Allergies/Adverse Reactions: Allergies Allergy/AdvReac Type Severity Reaction Status Date / Time methyldopa [From Aldomet] Allergy Cough Verified 08/01/17 09:13 methyldopate HCl Allergy Cough Verified 08/01/17 09:13 [From Aldomet] Home Medications: Home Meds Aspirin [Ecotrin] 325 mg PO DAILY 06/28/13 [History] Cholecalciferol (Vitamin D3) [Vitamin D3] 2,000 unit PO DAILY 06/28/13 [History] Fenofibrate,Micronized [Fenofibrate] 134 mg PO DAILY 06/28/13 [History] Furosemide [Lasix] 80 mg PO BID 06/28/13 [History] Gabapentin [Neurontin] 300 mg PO BID 06/28/13 [History] Metoprolol Tartrate [Lopressor] 50 mg PO BID 06/28/13 [History] Multivitamin [Multivitamins] 1 each PO DAILY 06/28/13 [History] Omeprazole 20 mg PO BIDAC 06/28/13 [History] buPROPion [buPROPion XL] 300 mg PO BEDTIME 06/28/13 [History] metFORMIN HCl [Metformin HCl ER] 1,000 mg PO BID 06/28/13 [History] Albuterol [IJD: Albuterol HFA] 2 puff IH Q4HR PRN 02/10/16 [History] Ibuprofen 800 mg PO Q6HR PRN 02/10/16 [History] Nitroglycerin [Nitrostat] 0.4 mg SL ASDIRECTED PRN 02/10/16 [History] Tadalafil [Cialis] 20 mg PO DAILY PRN 02/10/16 [History] Triamcinolone Acetonide [Triamcinolone Acetonide 0.1% Crm] 1 applic TOP ASDIRECTED PRN 02/10/16 [History] atorvaSTATin [Lipitor] 40 mg PO BEDTIME 02/10/16 [History] traMADol HCl [Ultram] 50 mg PO 6XDAY PRN 02/10/16 [History] Insulin Regular, Human [Humulin R U-500 Kwikpen] 90 units SQ BID 05/30/17 [ History] Insulin Regular, Human [Humulin R U-500 Kwikpen] 120 units SQ DAILY 05/30/17 [ History] Liraglutide [Victoza] 1.8 mg SQ DAILY 05/30/17 [History] Lactobacillus Acidophilus [Acidophilus Lactobacillus] 1 each PO BID #60 capsule 07/01/17 [Rx] Warfarin Sodium 10 mg PO DAILY #0 07/01/17 [Rx] Past Medical History Cardiovascular History: Reports: Bypass, CAD, High Cholesterol, Hypertension Respiratory History: Reports: Asthma Musculoskeletal History: Reports: Other (See Below) Other Musculoskeletal History: bilateral rotator cuff surgery Psychiatric History: Reports: Depression Endocrine/Metabolic History: Reports: Diabetes, Type II Dermatologic History: Reports: Cellulitis - Infectious Disease History Infectious Disease History: Reports: Chicken Pox - Past Surgical History HEENT Surgical History: Reports: Tonsillectomy Cardiovascular Surgical History: Reports: Coronary Artery Bypass GI Surgical History: Reports: Colonoscopy Musculoskeletal Surgical History: Reports: Arthroscopic Knee, Shoulder Surgery Social & Family History - Family History Family Medical History: Noncontributory - Tobacco Use Smoking Status *Q: Never Smoker Years of Tobacco use: 2 Packs/Tins Daily: 0.5 Second Hand Smoke Exposure: No - Caffeine Use Caffeine Use: Reports: Coffee - Alcohol Use Days Per Week of Alcohol Use: 0 - Recreational Drug Use Recreational Drug Use: No - Living Situation & Occupation Living situation: Reports: with Significant Other (Lives in [place] with significant other, has 1 child who lives [place], [place].) Occupation: Retired H&P Review of Systems - Review of Systems: Review Of Systems: See Below Free Text/Narrative: A complete 12 point review of systems was obtained. Pertinent positives and negatives are noted in the history of present illness. All other systems were reviewed and were negative except as noted. Exam - Exam Exam: See Below - Vital Signs Vital Signs: Last Vital Signs Temp 38.3 C H 08/01/17 10:36 Pulse 102 H 08/01/17 10:30 Resp 17 08/01/17 10:30 BP 144/63 H 08/01/17 10:30 Pulse Ox 94 L 08/01/17 09:30 Weight: 127.006 kg - Exam Quality Assessment: No: Supplemental Oxygen General: Alert, Oriented, Cooperative, Mild Distress HEENT: Conjunctiva Clear. No: Mucosa Moist & [place] (dry), Scleral Icterus Neck: Supple, Trachea Midline. No: Lymphadenopathy Lungs: Clear to Auscultation, Normal Respiratory Effort Cardiovascular: Regular Rate, Regular Rhythm. No: Systolic Murmur GI/Abdominal Exam: Normal Bowel Sounds, Soft, Non-Tender, No Distention Back Exam: Normal Inspection, Full Range of Motion Extremities: No Pedal Edema, Increased Warmth (Both lower legs from the ankle to near the knee involving medial, anterior and lateral aspect but not the posterior lower leg) Peripheral Pulses: 1+: Dorsalis Pedis (L), Dorsalis Pedis (R) Skin: Warm, Dry, Rash (Erythema over both anterior, medial and lateral portions of the shins. No involvement of either foot) Neuro Extensive - Mental Status: Alert, Oriented x3, Nl Response to Commands Neuro Extensive - Motor, Sensory, Reflexes: CN II-XII Intact. No: Dysarthria, Abnormal Motor, Tremor Psychiatric: Alert, Normal Affect - Patient Data Lab Results Last 24 hrs: Laboratory Results - last 24 hr 08/01/17 08/01/17 08/01/17 Range/Units 08:53 08:55 08:55 WBC 14.0 H (4.5-11.0) K/uL RBC 4.99 (4.30-5.90) M/uL Hgb 14.4 (12.0-15.0) g/dL Hct 43.8 (40.0-54.0) % MCV 88 (80-98) fL MCH 29 (27-31) pg MCHC 33 (32-36) % Plt Count 309 (150-400) K/uL Neut % (Auto) 90 H (36-66) % Lymph % (Auto) 5 L (24-44) % Trigg % (Auto) 5 (2-6) % Eos % (Auto) 0 L (2-4) % Baso % (Auto) 0 (0-1) % PT (9.5-12.0) sec INR (0.80-1.20) Puncture Site Rt brachial ABG pH 7.432 (7.350-7.450) ABG pCO2 40.1 (35.0-42.0) mmHg ABG pO2 73.7 L (75.0-100.0) mmHg ABG HCO3 26.3 H (22.0-26.0) mmol/L ABG Total CO2 23.1 (23.0-27.0) mmol/L ABG O2 Saturation 95.2 (95.0-98.0) % ABG O2 Content 17.8 (15.0-23.0) %vol ABG Base Excess 2.4 mm/L ABG Hemoglobin 13.6 (13.5-18.0) g/dL ABG Oxyhemoglobin 92.8 % ABG Carboxyhemoglobin 1.7 H (0.0-1.6) % ABG Methemoglobin 0.8 % Kailash Test Passed O2 Delivery Device Nasal cannula Oxygen Flow Rate 2 L Sodium 137 L (140-148) mmol/L Potassium 4.1 (3.6-5.2) mmol/L Chloride 96 L (100-108) mmol/L Carbon Dioxide 30 (21-32) mmol/L Anion Gap 15.1 H (5.0-14.0) mmol/L BUN 15 (7-18) mg/dL Creatinine 1.1 (0.8-1.3) mg/dL Est Cr Clr Drug Dosing 81.99 mL/min Estimated GFR (MDRD) > 60 (>60) Glucose 275 H (74-106) mg/dL Lactic Acid (0.4-2.0) mmol/L Calcium 9.1 (8.5-10.1) mg/dL Total Bilirubin 0.6 (0.2-1.0) mg/dL AST 32 (15-37) U/L ALT 53 D (12-78) U/L Alkaline Phosphatase 71 (46-116) U/L Total Protein 7.7 (6.4-8.2) g/dL Albumin 3.9 (3.4-5.0) g/dL Globulin 3.8 H (2.3-3.5) g/dL Albumin/Globulin Ratio 1.0 L (1.2-2.2) 08/01/17 08/01/17 Range/Units 08:55 09:07 WBC (4.5-11.0) K/uL RBC (4.30-5.90) M/uL Hgb (12.0-15.0) g/dL Hct (40.0-54.0) % MCV (80-98) fL MCH (27-31) pg MCHC (32-36) % Plt Count (150-400) K/uL Neut % (Auto) (36-66) % Lymph % (Auto) (24-44) % Trigg % (Auto) (2-6) % Eos % (Auto) (2-4) % Baso % (Auto) (0-1) % PT 14.6 H (9.5-12.0) sec INR 1.35 H (0.80-1.20) Puncture Site ABG pH (7.350-7.450) ABG pCO2 (35.0-42.0) mmHg ABG pO2 (75.0-100.0) mmHg ABG HCO3 (22.0-26.0) mmol/L ABG Total CO2 (23.0-27.0) mmol/L ABG O2 Saturation (95.0-98.0) % ABG O2 Content (15.0-23.0) %vol ABG Base Excess mm/L ABG Hemoglobin (13.5-18.0) g/dL ABG Oxyhemoglobin % ABG Carboxyhemoglobin (0.0-1.6) % ABG Methemoglobin % Kailash Test O2 Delivery Device Oxygen Flow Rate L Sodium (140-148) mmol/L Potassium (3.6-5.2) mmol/L Chloride (100-108) mmol/L Carbon Dioxide (21-32) mmol/L Anion Gap (5.0-14.0) mmol/L BUN (7-18) mg/dL Creatinine (0.8-1.3) mg/dL Est Cr Clr Drug Dosing mL/min Estimated GFR (MDRD) (>60) Glucose (74-106) mg/dL Lactic Acid 3.4 H (0.4-2.0) mmol/L Calcium (8.5-10.1) mg/dL Total Bilirubin (0.2-1.0) mg/dL AST (15-37) U/L ALT (12-78) U/L Alkaline Phosphatase (46-116) U/L Total Protein (6.4-8.2) g/dL Albumin (3.4-5.0) g/dL Globulin (2.3-3.5) g/dL Albumin/Globulin Ratio (1.2-2.2) Result Diagrams: 08/01/17 08:55 08/01/17 08:55 Imaging Impressions Last 24 hrs: Chest x-ray - images personally reviewed - there is evidence of an old sternotomy. No mass, infiltrate or effusion. *Q Meaningful Use (ADM) - VTE *Q VTE Criteria *Q: - VTE Risk Assess *Q Each Risk Factor Represents 1 Point: Obesity ( BMI > 25 kg/m2), Sepsis Total Score 1 Point Risk Factors: 2 Each Risk Factor Represents 2 Points: Age 60 - 74 Years Total Score 2 Point Risk Factors: 2 Each Risk Factor Represents 3 Points: None, History of DVT/PE Total Score 3 Point Risk Factors: 3 Each Risk Factor Represents 5 Points: None Total Score 5 Point Risk Factors: 0 Venous Thromboembolism Risk Factor Score *Q: 7 - Stroke *Q Stroke Criteria *Q: - AMI *Q AMI Criteria *Q: - Problem List (1) Sepsis SNOMED Code(s): 97620823 ICD Code: A41.9 - SEPSIS, UNSPECIFIED ORGANISM Status: Acute Current Visit: Yes Qualifiers: Sepsis type: sepsis due to unspecified organism Qualified Code(s): A41.9 - Sepsis, unspecified organism (2) Cellulitis SNOMED Code(s): 916133428 ICD Code: L03.90 - CELLULITIS, UNSPECIFIED Status: Acute Priority: High Current Visit: Yes Qualifiers: Site of cellulitis: extremity Site of cellulitis of extremity: lower extremity Laterality: unspecified laterality Qualified Code(s): L03.119 - Cellulitis of unspecified part of limb (3) Type 2 diabetes mellitus SNOMED Code(s): 70654657 ICD Code: E11.9 - TYPE 2 DIABETES MELLITUS WITHOUT COMPLICATIONS Status: Chronic Priority: High Current Visit: No Qualifiers: Diabetes mellitus complication status: with circulatory complication Diabetes mellitus complication detail: with other circulatory complications Diabetes mellitus custodial insulin use: with rat exterminator use Qualified Code(s) : E11.59 - Type 2 diabetes mellitus with other circulatory complications; Z79.4 - care home (current) use of insulin; Z79.4 - care home (current) use of insulin ; Z79.4 - terminal clerk (current) use of insulin; Z79.4 - care home (current) use of insulin (4) Obesity (BMI 30-39.9) SNOMED Code(s): 824815413 ICD Code: E66.9 - OBESITY, UNSPECIFIED Status: Chronic Current Visit: No (5) 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 SNOMED Code(s): 757587454 ICD Code: I25.729 - ATHSCL AUTOLOGOUS ARTERY CABG W UNSP ANGINA PECTORIS Status: Chronic Current Visit: No Problem List Initiated/Reviewed/Updated: Yes Orders Last 24hrs: Active Orders 24 hr Category Date Time Status Patient Status Manage Transfer [TRANSFER] Routine ADT 08/01/17 10:26 Ordered Chest 1V Frontal [CR] Stat Exams 08/01/17 08:53 Taken CULTURE BLOOD [BC] Urgent Lab 08/01/17 08:55 Received CULTURE BLOOD [BC] Urgent Lab 08/01/17 09:00 Received UA W/MICROSCOPIC [URIN] Urgent Lab 08/01/17 08:41 Uncollected Piperacillin/Tazobactam/Dext [Zosyn in Dextrose Iso- Med 08/01/17 11:00 Active Osmotic 3.375 GM] 3.375 gm Premix Bag 1 bag IV ONETIME Sodium Chloride 0.9% [Normal Saline] 1,000 ml Med 08/01/17 09:00 Active IV ASDIRECTED Sodium Chloride 0.9% [Normal Saline] 1,000 ml Med 08/01/17 09:15 Active IV ASDIRECTED Sodium Chloride 0.9% [Normal Saline] 1,000 ml Med 08/01/17 10:30 Active IV ASDIRECTED Vancomycin 2 gm Med 08/01/17 09:47 Active Sodium Chloride 0.9% [Normal Saline] 250 ml IV ONETIME Blood Culture x2 Reflex Set [OM.PC] Urgent Oth 08/01/17 08:51 Ordered Resuscitation Status Routine Resus Stat 08/01/17 10:30 Ordered Medication Orders Sodium Chloride (Normal Saline) 1,000 mls @ 999 mls/hr IV ASDIRECTED [facility] Last Admin: 08/01/17 09:00 Dose: 999 mls/hr Sodium Chloride (Normal Saline) 1,000 mls @ 999 mls/hr IV ASDIRECTED [facility] Last Admin: 08/01/17 09:50 Dose: 999 mls/hr Vancomycin HCl 2 gm/ Sodium (Chloride) 250 mls @ 150 mls/hr IV ONETIME ONE Stop: 08/01/17 11:26 Last Admin: 08/01/17 10:10 Dose: 150 mls/hr Piperacillin/Tazobactam/ (Dextrose 3.375 gm/ Premix) 50 mls @ 100 mls/hr IV ONETIME ONE Stop: 08/01/17 11:29 Last Admin: 08/01/17 10:33 Dose: 100 mls/hr Sodium Chloride (Normal Saline) 1,000 mls @ 999 mls/hr IV ASDIRECTED [facility] Assessment/Plan Comment:: ASSESSMENT AND PLAN - Bilateral lower extremity cellulitis with sepsis - evidence for sepsis includes tachycardia, mild confusion and lactic acidosis. He is responding to IV fluids provided in the emergency room. History of similar infection but usually just on the right side. He will need broad-spectrum antibiotic coverage with similar episode recently and diabetes. -ICU admission -Vancomycin and Pip/Tazo -Complete 30 mL/kg bolus -Repeat lactic acid -Cardiac monitoring -Follow-up cultures History of DVT, right lower leg - chronically anticoagulated though his INR is on the low side today. -Warfarin -Repeat INR in the morning Coronary artery disease - history of coronary artery bypass. Disease seems stable at this time. -Continue medical management Insulin-dependent diabetes mellitus - Significant insulin resistance. Sugars have been more elevated the past 24 hours, likely related to his infection. -Continue home insulin dosing -Medium dose sliding scale insulin Obesity with BMI greater than 30 - A short period of counseling was provided regarding potential health benefits of weight loss. Maintenance issues - - DVT prophylaxis - warfarin - GI prophylaxis - PPI - Nutrition - diabetic diet - Becerra catheter - not indicated CODE STATUS - full code Admission justification - This patient will be admitted for inpatient services and is medically appropriate meeting medical necessity for inpatient admission as outlined in my documentation. I reasonably expect the patient will require inpatient services that span a period time over 2 midnights. I reasonably expect this patient to be discharged or transferred within 96 hours after admission to the [facility]. Disposition - anticipate discharge home after the hospital stay Primary care physician - Dr. Buster Dawson M.D.
--- NOTE | 2017-08-01 10:58 | CR ---
Chest 1V Frontal HISTORY: sob COMPARISON: 05/30/2017 FINDINGS: Lungs appear clear and normally aerated. Cardiomediastinal silhouette is within normal limits. Old me colin sternotomy changes are redemonstrated. No vascular redistribution or pleural fluid can be seen. Bony structures and soft tissues are unremarkable. IMPRESSION: No acute chest abnormality or significant interval change compared with 05/30/2017.
[2017-08-01] MEDS ORDERED: Piperacillin/Tazobactam/Dext 3.375 GM in Premix Bag 1 BAG IV ONE (11:00)
[2017-08-01] MEDS ORDERED: traMADol 50 MG Tab PO PRN (11:10)
[2017-08-01] MEDS ORDERED: Albuterol 0.083% 2.5 MG/3 ML Neb Soln NEB PRN (11:10)
[2017-08-01] MEDS ORDERED: Polyethylene Glycol 3350 Powder 17 GM Packet PO PRN (11:10)
[2017-08-01] MEDS ORDERED: Ondansetron 4 MG/2 ML SDV IV PRN (11:10)
[2017-08-01] MEDS ORDERED: Ondansetron 4 MG Tab.DIS PO PRN (11:10)
[2017-08-01] MEDS ORDERED: Sodium Chloride 0.9% 500 ML IV SCH (11:10)
[2017-08-01] MEDS: Insulin Regular, Human 100 Units/ML 10 ML Vial SUBCUT SCH ×2 (11:46→16:34)
[2017-08-01] MEDS: Insulin Aspart 100 Units/ML 3 ML Pen SUBCUT SCH ×3 (11:51→20:54)
[2017-08-01] MEDS: Warfarin 5 MG Tab PO SCH (13:46)
[2017-08-01] MEDS: Ibuprofen 600 MG Tab PO PRN (13:52)
[2017-08-01] MEDS: Acetaminophen 325 MG Tab PO PRN (15:12)
[2017-08-01] MEDS: Sodium Chloride 0.9% 1,000 ML IV SCH (16:16)
[2017-08-01] MEDS: Piperacillin/Tazobactam/Dext 3.375 GM in Premix Bag 1 BAG IV SCH ×2 (16:18→21:28)
[2017-08-01] MEDS: Pantoprazole 40 MG Tab.CR PO SCH (16:38)
[2017-08-01] MEDS: metFORMIN 500 MG Tab.ER PO SCH (16:39)
[2017-08-01] MEDS: atorvaSTATin 20 MG Tab PO SCH (20:26)
[2017-08-01] MEDS: Gabapentin 300 MG Cap PO SCH (20:26)
[2017-08-01] MEDS: Lactobacillus Rhamnosus GG (Probiotic) Cap PO SCH (20:27)
[2017-08-01] MEDS: Metoprolol Tartrate 50 MG Tab PO SCH (20:27)
[2017-08-01] MEDS: buPROPion 150 MG Tab.ER PO SCH (20:29)
[2017-08-02] MEDS: Ibuprofen 600 MG Tab PO PRN ×2 (01:52→19:40)
[2017-08-02] MEDS: Sodium Chloride 0.9% 1,000 ML IV SCH (02:53)
[2017-08-02] MEDS: Piperacillin/Tazobactam/Dext 3.375 GM in Premix Bag 1 BAG IV SCH ×4 (04:17→21:16)
[2017-08-02] MEDS: Insulin Aspart 100 Units/ML 3 ML Pen SUBCUT SCH ×4 (07:25→21:01)
[2017-08-02] MEDS: Insulin Regular, Human 100 Units/ML 10 ML Vial SUBCUT SCH ×2 (07:56→16:14)
[2017-08-02] MEDS: Pantoprazole 40 MG Tab.CR PO SCH ×2 (07:57→16:12)
[2017-08-02] MEDS: metFORMIN 500 MG Tab.ER PO SCH (07:57)
[2017-08-02] MEDS: Lactobacillus Rhamnosus GG (Probiotic) Cap PO SCH ×2 (07:59→21:12)
[2017-08-02] MEDS: Furosemide 80 MG Tab PO SCH ×2 (07:59→13:07)
[2017-08-02] MEDS: Fenofibrate,Micronized 67 MG Cap PO SCH (08:00)
[2017-08-02] MEDS: Aspirin 325 MG Tab.EC PO SCH (08:00)
[2017-08-02] MEDS: Metoprolol Tartrate 50 MG Tab PO SCH ×2 (08:01→21:11)
[2017-08-02] MEDS: Liraglutide (rDNA Origin) 0.6 MG/0.1 ML 3 ML Pen SUBCUT SCH (08:02)
[2017-08-02] MEDS: Gabapentin 300 MG Cap PO SCH ×2 (08:02→21:13)
[2017-08-02] MEDS ORDERED: Sodium Chloride 0.9% 1,000 ML IV SCH (09:00)
--- NOTE | 2017-08-02 09:00 | PCM.PN ---
- General Info Date of Service: 08/02/17 - Review of Systems General: Denies: Fever Pulmonary: Denies: Shortness of Breath Musculoskeletal: Reports: Leg Pain Systems Review Comment:: patient was febrile overnight but temperature this morning is normal. Leg pain has improved but not quite resolved. Erythema has improved. Vital signs have been stable. He does have 2 blood cultures growing gram-negative rods with identification pending. Blood sugars have been well controlled. No complaints of shortness of breath or abdominal pain. - Patient Data Vitals - Most Recent: Last Vital Signs Temp 35.9 C 08/02/17 07:42 Pulse 85 08/02/17 08:01 Resp 19 08/02/17 07:42 BP 150/77 H 08/02/17 08:01 Pulse Ox 95 08/02/17 07:42 Weight - Most Recent: 132.676 kg I&O - Last 24 Hours: Intake & Output 08/01/17 08/02/17 08/02/17 22:59 06:59 14:59 Intake Total 4921 1626 Output Total 1100 Balance 3821 1626 Lab Results Last 24 Hours: Laboratory Results - last 24 hr 08/01/17 08/01/17 08/02/17 Range/Units 14:30 22:10 04:50 WBC 11.1 H (4.5-11.0) K/uL RBC 4.12 L (4.30-5.90) M/uL Hgb 11.8 L D (12.0-15.0) g/dL Hct 36.9 L (40.0-54.0) % MCV 90 (80-98) fL MCH 29 (27-31) pg MCHC 32 (32-36) % Plt Count 209 (150-400) K/uL Sodium (140-148) mmol/L Potassium (3.6-5.2) mmol/L Chloride (100-108) mmol/L Carbon Dioxide (21-32) mmol/L Anion Gap (5.0-14.0) mmol/L BUN (7-18) mg/dL Creatinine (0.8-1.3) mg/dL Est Cr Clr Drug Dosing mL/min Estimated GFR (MDRD) (>60) Glucose (74-106) mg/dL Lactic Acid 2.3 H (0.4-2.0) mmol/L Calcium (8.5-10.1) mg/dL Urine Color Yellow Urine Appearance Clear Urine pH 6.0 (4.5-8.0) Ur Specific [place] 1.015 (1.008-1.030) Urine Protein Negative (NEGATIVE) mg/dL Urine Glucose (UA) 1000 H (NEGATIVE) mg/dL Urine Ketones Negative (NEGATIVE) mg/dL Urine Occult Blood Negative (NEGATIVE) Urine Nitrite Negative (NEGAITVE) Urine Bilirubin Negative (NEGATIVE) Urine Urobilinogen Normal (NORMAL) mg/dL Ur Leukocyte Esterase Negative (NEGATIVE) Urine RBC 0-5 (0-5) Urine WBC 0-5 (0-5) Ur Epithelial Cells Moderate Amorphous Sediment Few Urine Bacteria Rare Urine Mucus Few 08/02/17 Range/Units 04:50 WBC (4.5-11.0) K/uL RBC (4.30-5.90) M/uL Hgb (12.0-15.0) g/dL Hct (40.0-54.0) % MCV (80-98) fL MCH (27-31) pg MCHC (32-36) % Plt Count (150-400) K/uL Sodium 143 (140-148) mmol/L Potassium 3.8 (3.6-5.2) mmol/L Chloride 108 (100-108) mmol/L Carbon Dioxide 29 (21-32) mmol/L Anion Gap 6.5 (5.0-14.0) mmol/L BUN 12 (7-18) mg/dL Creatinine 0.9 (0.8-1.3) mg/dL Est Cr Clr Drug Dosing 100.21 mL/min Estimated GFR (MDRD) > 60 (>60) Glucose 148 H (74-106) mg/dL Lactic Acid (0.4-2.0) mmol/L Calcium 8.1 L (8.5-10.1) mg/dL Urine Color Urine Appearance Urine pH (4.5-8.0) Ur Specific [place] (1.008-1.030) Urine Protein (NEGATIVE) mg/dL Urine Glucose (UA) (NEGATIVE) mg/dL Urine Ketones (NEGATIVE) mg/dL Urine Occult Blood (NEGATIVE) Urine Nitrite (NEGAITVE) Urine Bilirubin (NEGATIVE) Urine Urobilinogen (NORMAL) mg/dL Ur Leukocyte Esterase (NEGATIVE) Urine RBC (0-5) Urine WBC (0-5) Ur Epithelial Cells Amorphous Sediment Urine Bacteria Urine Mucus Med Orders - Current: Current Medications Acetaminophen (Tylenol) 650 mg PO Q4H PRN PRN Reason: Pain (Mild 1-3)/fever Last Admin: 08/01/17 15:12 Dose: 650 mg Albuterol (Proventil Neb Soln) 2.5 mg NEB Q4H PRN PRN Reason: Shortness Of Breath/wheezing Aspirin (Ecotrin) 325 mg PO DAILY [facility] Last Admin: 08/02/17 08:00 Dose: 325 mg Atorvastatin Calcium (Lipitor) 40 mg PO BEDTIME [facility] Last Admin: 08/01/17 20:26 Dose: 40 mg Bupropion HCl (Wellbutrin Xl) 300 mg PO BEDTIME [facility] Last Admin: 08/01/17 20:29 Dose: 300 mg Fenofibrate (Fenofibrate) 134 mg PO DAILY [facility] Last Admin: 08/02/17 08:00 Dose: 134 mg Furosemide (Lasix) 80 mg PO BIDDIURETIC [facility] Last Admin: 08/02/17 07:59 Dose: 80 mg Gabapentin (Neurontin) 300 mg PO BID [facility] Last Admin: 08/02/17 08:02 Dose: 300 mg Piperacillin/Tazobactam/ (Dextrose 3.375 gm/ Premix) 50 mls @ 100 mls/hr IV Q6H [facility] Last Admin: 08/02/17 04:17 Dose: 100 mls/hr Sodium Chloride (Normal Saline) 1,000 mls @ 125 mls/hr IV ASDIRECTED [facility] Last Admin: 08/02/17 02:53 Dose: 125 mls/hr Vancomycin HCl 1.75 gm/ Sodium (Chloride) 250 mls @ 150 mls/hr IV Q12H [facility] Last Admin: 08/01/17 22:39 Dose: 150 mls/hr Ibuprofen (Motrin) 600 mg PO Q6H PRN PRN Reason: Pain/Fever Last Admin: 08/02/17 01:52 Dose: 600 mg Insulin Aspart (Novolog) 0 unit SUBCUT QIDACANDBED [facility] PRN Reason: Protocol Last Admin: 08/02/17 07:25 Dose: Not Given Insulin Human Regular (Novolin R) 90 unit SUBCUT BIDAC [facility] Last Admin: 08/02/17 07:56 Dose: 90 units Lactobacillus Rhamnosus (Culturelle) 1 cap PO BID [facility] Last Admin: 08/02/17 07:59 Dose: 1 cap Liraglutide (Victoza) 1.8 mg SUBCUT DAILY [facility] Last Admin: 08/02/17 08:02 Dose: 1.8 mg Metformin HCl (Glucophage Xr) 1,000 mg PO BIDMEALS [facility] Last Admin: 08/02/17 07:57 Dose: 1,000 mg Metoprolol Tartrate (Lopressor) 50 mg PO BID [facility] Last Admin: 08/02/17 08:01 Dose: 50 mg Ondansetron HCl (Zofran Odt) 4 mg PO Q6H PRN PRN Reason: Nausea able to take PO Ondansetron HCl (Zofran) 4 mg IV Q6H PRN PRN Reason: Nausea/Vomiting Oxycodone HCl (Oxycodone) 5 mg PO Q4H PRN PRN Reason: Pain (moderate 4-6) Pantoprazole Sodium (Protonix) 40 mg PO BIDAC [facility] Last Admin: 08/02/17 07:57 Dose: 40 mg Polyethylene Glycol (Miralax) 17 gm PO DAILY PRN PRN Reason: Constipation Tramadol HCl (Ultram) 50 mg PO 6XDAY PRN PRN Reason: Pain Warfarin Sodium (Coumadin) 10 mg PO DAILY@1300 [facility] Last Admin: 08/01/17 13:46 Dose: 10 mg Discontinued Medications Sodium Chloride (Normal Saline) 1,000 mls @ 999 mls/hr IV [facility] Last Admin: 08/01/17 09:00 Dose: 999 mls/hr Sodium Chloride (Normal Saline) 1,000 mls @ 999 mls/hr IV [facility] Last Admin: 08/01/17 09:50 Dose: 999 mls/hr Vancomycin HCl 2 gm/ Sodium (Chloride) 250 mls @ 150 mls/hr IV ONETIME ONE Stop: 08/01/17 11:26 Last Admin: 08/01/17 10:10 Dose: 150 mls/hr Piperacillin/Tazobactam/ (Dextrose 3.375 gm/ Premix) 50 mls @ 100 mls/hr IV ONETIME ONE Stop: 08/01/17 11:29 Last Admin: 08/01/17 10:33 Dose: 100 mls/hr Sodium Chloride (Normal Saline) 1,000 mls @ 999 mls/hr IV [facility] Last Admin: 08/01/17 10:42 Dose: 999 mls/hr Sodium Chloride (Normal Saline) 500 mls @ 500 mls/hr IV .BOLUS GONZALO Stop: 08/01/17 13:11 Last Admin: 08/01/17 11:36 Dose: 500 mls/hr Ibuprofen (Motrin) 600 mg PO ONETIME ONE Stop: 08/01/17 08:52 Last Admin: 08/01/17 09:00 Dose: 600 mg - Exam Quality Assessment: Supplemental Oxygen General: Alert, Oriented, Cooperative, No Acute Distress Neck: Supple Lungs: Clear to Auscultation, Normal Respiratory Effort, Decreased Breath Sounds (mild at bases) Cardiovascular: Regular Rate, Regular Rhythm GI/Abdominal Exam: Normal Bowel Sounds, Soft, No Distention Extremities: No Pedal Edema, Increased Warmth (both anterior shins) Skin: Warm, Dry, Rash (erythema both anterior shins) Psy/Mental Status: Alert, Normal Affect - Problem List & Annotations (1) Sepsis SNOMED Code(s): 14761920 Code(s): A41.9 - SEPSIS, UNSPECIFIED ORGANISM Status: Acute Current Visit : Yes Qualifiers: Sepsis type: sepsis due to unspecified organism Qualified Code(s): A41.9 - Sepsis, unspecified organism (2) Cellulitis SNOMED Code(s): 165621310 Code(s): L03.90 - CELLULITIS, UNSPECIFIED Status: Acute Priority: High Current Visit: Yes Qualifiers: Site of cellulitis: extremity Site of cellulitis of extremity: lower extremity Laterality: unspecified laterality Qualified Code(s): L03.119 - Cellulitis of unspecified part of limb (3) Type 2 diabetes mellitus SNOMED Code(s): 13714079 Code(s): E11.9 - TYPE 2 DIABETES MELLITUS WITHOUT COMPLICATIONS Status: Chronic Priority: High Current Visit: No Qualifiers: Diabetes mellitus complication status: with circulatory complication Diabetes mellitus complication detail: with other circulatory complications Diabetes mellitus exterminator helper insulin use: with exterminator helper use Qualified Code(s) : E11.59 - Type 2 diabetes mellitus with other circulatory complications; Z79.4 - intermediate (current) use of insulin; Z79.4 - terminal gauger supervisor (current) use of insulin ; Z79.4 - intermediate (current) use of insulin; Z79.4 - terminal gauger supervisor (current) use of insulin (4) Obesity (BMI 30-39.9) SNOMED Code(s): 949831585 Code(s): E66.9 - OBESITY, UNSPECIFIED Status: Chronic Current Visit: No (5) 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 SNOMED Code(s): 384192479 Code(s): I25.729 - ATHSCL AUTOLOGOUS ARTERY CABG W UNSP ANGINA PECTORIS Status: Chronic Current Visit: No - Problem List Review Problem List Initiated/Reviewed/Updated: Yes - My Orders Last 24 Hours: My Active Orders 08/01/17 10:30 Resuscitation Status Routine 08/01/17 11:10 Patient Status [ADT] Routine Bedrest Bathroom Privileges [RC] ASDIRECTED Cardiac Monitoring [RC] Q6H Communication Order [RC] PRN Communication Order [RC] PRN Diabetes Education [RC] Click to Edit Intake and Output [RC] QSHIFT Notify Provider Vital Signs [RC] Q12H Notify Provider [RC] PRN RT Aerosol Therapy [RC] ASDIRECTED Up With Assistance [RC] ASDIRECTED VTE/DVT Education [RC] Per Unit Routine Vital Signs [RC] Q2HR Acetaminophen [Tylenol] 650 mg PO Q4H PRN Albuterol [Proventil Neb Soln] 2.5 mg NEB Q4H PRN Ibuprofen [Motrin] 600 mg PO Q6H PRN Insulin Aspart [NovoLOG] See Protocol SUBCUT QIDACANDBED Ondansetron [Zofran ODT] 4 mg PO Q6H PRN Ondansetron [Zofran] 4 mg IV Q6H PRN Polyethylene Glycol 3350 [MiraLAX] 17 gm PO DAILY PRN oxyCODONE 5 mg PO Q4H PRN VTE Mechanical Contraindications [AST] Per Unit Routine 08/01/17 16:00 Piperacillin/Tazobactam/Dext [Zosyn in Dextrose Iso-Osmotic 3.375 GM] 3.375 gm Premix Bag 1 bag IV Q6H 08/01/17 16:30 Pantoprazole [ProTONIX] 40 mg PO BIDAC 08/01/17 23:00 Vancomycin 1.75 gm Sodium Chloride 0.9% [Normal Saline] 250 ml IV Q12H 08/01/17 Lunch Consistent Carbohydrate Diet [DIET] 08/02/17 09:00 Sodium Chloride 0.9% [Normal Saline] 1,000 ml IV ASDIRECTED 08/03/17 05:00 BASIC METABOLIC PANEL,BMP [CHEM] Timed CBC W/O DIFF,HEMOGRAM [HEME] Timed (1) INR,PT,PROTHROMBIN TIME [COAG] Timed 08/03/17 07:30 GLUCOSE POC LAB TO COLLECT [POC] QIDACANDBED 08/03/17 10:30 VANCOMYCIN TROUGH [CHEM] Routine 08/03/17 11:30 GLUCOSE POC LAB TO COLLECT [POC] QIDACANDBED 08/03/17 16:30 GLUCOSE POC LAB TO COLLECT [POC] QIDACANDBED 08/03/17 21:00 GLUCOSE POC LAB TO COLLECT [POC] QIDACANDBED 08/04/17 07:30 GLUCOSE POC LAB TO COLLECT [POC] QIDACANDBED 08/04/17 11:30 GLUCOSE POC LAB TO COLLECT [POC] QIDACANDBED 08/04/17 16:30 GLUCOSE POC LAB TO COLLECT [POC] QIDACANDBED 08/04/17 21:00 GLUCOSE POC LAB TO COLLECT [POC] QIDACANDBED 08/05/17 07:30 GLUCOSE POC LAB TO COLLECT [POC] QIDACANDBED 08/05/17 11:30 GLUCOSE POC LAB TO COLLECT [POC] QIDACANDBED 08/05/17 16:30 GLUCOSE POC LAB TO COLLECT [POC] QIDACANDBED 08/05/17 21:00 GLUCOSE POC LAB TO COLLECT [POC] QIDACANDBED 08/06/17 07:30 GLUCOSE POC LAB TO COLLECT [POC] QIDACANDBED 08/06/17 11:30 GLUCOSE POC LAB TO COLLECT [POC] QIDACANDBED 08/06/17 16:30 GLUCOSE POC LAB TO COLLECT [POC] QIDACANDBED 08/06/17 21:00 GLUCOSE POC LAB TO COLLECT [POC] QIDACANDBED - Plan Plan:: ASSESSMENT AND PLAN - Bilateral lower extremity cellulitis with sepsis - sepsis has resolved. There is evidence for bacteremia but identification of the gram-negative tuan is pending. Clinically looking better today. lactic acid level improved with hydration. -Vancomycin and Pip/Tazo -gentle fluids -Cardiac monitoring -Follow-up cultures History of DVT, right lower leg - chronically anticoagulated though his INR was on the low side at the time of admission. -Warfarin -Repeat INR in the morning Coronary artery disease - history of coronary artery bypass. Disease seems stable at this time. -Continue medical management Insulin-dependent diabetes mellitus - Significant insulin resistance. Sugars have been well-controlled during the hospital stay. -Continue home insulin dosing -Medium dose sliding scale insulin Obesity with BMI greater than 30 - A short period of counseling was provided regarding potential health benefits of weight loss. Maintenance issues - - DVT prophylaxis - warfarin - GI prophylaxis - PPI - Nutrition - diabetic diet Disposition - anticipate discharge home after the hospital stay Miquel Dawson M.D.
[2017-08-02] MEDS: Warfarin 5 MG Tab PO SCH (13:07)
[2017-08-02] MEDS: metFORMIN 500 MG Tab PO SCH (16:13)
[2017-08-02] MEDS: atorvaSTATin 20 MG Tab PO SCH (21:13)
[2017-08-02] MEDS: buPROPion 150 MG Tab.ER PO SCH (21:14)
[2017-08-02] MEDS: Acetaminophen 325 MG Tab PO PRN (21:14)
[2017-08-02] MEDS: oxyCODONE 5 MG Tab PO PRN (21:15)
[2017-08-03] MEDS: Piperacillin/Tazobactam/Dext 3.375 GM in Premix Bag 1 BAG IV SCH ×4 (04:04→21:35)
[2017-08-03] MEDS: Insulin Regular, Human 100 Units/ML 10 ML Vial SUBCUT SCH ×2 (07:12→17:11)
[2017-08-03] MEDS: Insulin Aspart 100 Units/ML 3 ML Pen SUBCUT SCH ×4 (07:27→21:36)
[2017-08-03] MEDS: Pantoprazole 40 MG Tab.CR PO SCH ×2 (07:29→17:55)
--- NOTE | 2017-08-03 08:46 | PCM.PN ---
- General Info Date of Service: 08/03/17 Functional Status: Reports: Pain Controlled, Tolerating Diet - Review of Systems General: Reports: Fever Musculoskeletal: Reports: Leg Pain Systems Review Comment:: No acute events overnight though he did have another fever last night. Minimally symptomatic with temperature elevation. Vital signs have all been stable. Leg pain has continued to improve and has essentially resolved on the left side. Mild itching noted on the left side. Erythema has improved significantly as has the warmth. All 4 blood cultures positive for gram- negative rods with identification pending. Blood sugars have been well controlled. - Patient Data Vitals - Most Recent: Last Vital Signs Temp 36.7 C 08/03/17 02:00 Pulse 73 08/03/17 06:00 Resp 18 08/03/17 06:00 BP 106/41 L 08/03/17 06:00 Pulse Ox 94 L 08/03/17 06:00 Weight - Most Recent: 129.047 kg I&O - Last 24 Hours: Intake & Output 08/02/17 08/03/17 08/03/17 22:59 06:59 14:59 Intake Total 1187 603 480 Output Total 850 Balance 337 603 480 Lab Results Last 24 Hours: Laboratory Results - last 24 hr 08/03/17 08/03/17 08/03/17 Range/Units 06:04 06:04 06:04 WBC 8.8 (4.5-11.0) K/uL RBC 4.24 L (4.30-5.90) M/uL Hgb 12.2 (12.0-15.0) g/dL Hct 38.1 L (40.0-54.0) % MCV 90 (80-98) fL MCH 29 (27-31) pg MCHC 32 (32-36) % Plt Count 227 (150-400) K/uL PT 15.4 H (9.5-12.0) sec INR 1.42 H (0.80-1.20) Sodium 144 (140-148) mmol/L Potassium 3.5 L (3.6-5.2) mmol/L Chloride 105 (100-108) mmol/L Carbon Dioxide 33 H (21-32) mmol/L Anion Gap 9.5 (5.0-14.0) mmol/L BUN 18 (7-18) mg/dL Creatinine 1.1 (0.8-1.3) mg/dL Est Cr Clr Drug Dosing 82.03 mL/min Estimated GFR (MDRD) > 60 (>60) Glucose 128 H (74-106) mg/dL Calcium 8.6 (8.5-10.1) mg/dL Med Orders - Current: Current Medications Acetaminophen (Tylenol) 650 mg PO Q4H PRN PRN Reason: Pain (Mild 1-3)/fever Last Admin: 08/02/17 21:14 Dose: 650 mg Albuterol (Proventil Neb Soln) 2.5 mg NEB Q4H PRN PRN Reason: Shortness Of Breath/wheezing Aspirin (Ecotrin) 325 mg PO DAILY [facility] Last Admin: 08/02/17 08:00 Dose: 325 mg Atorvastatin Calcium (Lipitor) 40 mg PO BEDTIME [facility] Last Admin: 08/02/17 21:13 Dose: 40 mg Bupropion HCl (Wellbutrin Xl) 300 mg PO BEDTIME [facility] Last Admin: 08/02/17 21:14 Dose: 300 mg Fenofibrate (Fenofibrate) 134 mg PO DAILY [facility] Last Admin: 08/02/17 08:00 Dose: 134 mg Furosemide (Lasix) 80 mg PO BIDDIURETIC [facility] Last Admin: 08/02/17 13:07 Dose: 80 mg Gabapentin (Neurontin) 300 mg PO BID [facility] Last Admin: 08/02/17 21:13 Dose: 300 mg Piperacillin/Tazobactam/ (Dextrose 3.375 gm/ Premix) 50 mls @ 100 mls/hr IV Q6H [facility] Last Admin: 08/03/17 04:04 Dose: 100 mls/hr Sodium Chloride (Normal Saline) 1,000 mls @ 25 mls/hr IV ASDIRECTED [facility] Last Admin: 08/02/17 22:33 Dose: 25 mls/hr Ibuprofen (Motrin) 600 mg PO Q6H PRN PRN Reason: Pain/Fever Last Admin: 08/02/17 19:40 Dose: 600 mg Insulin Aspart (Novolog) 0 unit SUBCUT QIDACANDBED [facility] PRN Reason: Protocol Last Admin: 08/03/17 07:27 Dose: Not Given Insulin Human Regular (Novolin R) 90 unit SUBCUT BIDAC [facility] Last Admin: 08/03/17 07:12 Dose: 90 units Lactobacillus Rhamnosus (Culturelle) 1 cap PO BID [facility] Last Admin: 08/02/17 21:12 Dose: 1 cap Liraglutide (Victoza) 1.8 mg SUBCUT DAILY [facility] Last Admin: 08/02/17 08:02 Dose: 1.8 mg Metformin HCl (Glucophage) 1,000 mg PO BIDMEALS [facility] Last Admin: 08/02/17 16:13 Dose: 1,000 mg Metoprolol Tartrate (Lopressor) 50 mg PO BID [facility] Last Admin: 08/02/17 21:11 Dose: 50 mg Ondansetron HCl (Zofran Odt) 4 mg PO Q6H PRN PRN Reason: Nausea able to take PO Ondansetron HCl (Zofran) 4 mg IV Q6H PRN PRN Reason: Nausea/Vomiting Oxycodone HCl (Oxycodone) 5 mg PO Q4H PRN PRN Reason: Pain (moderate 4-6) Last Admin: 08/02/17 21:15 Dose: 5 mg Pantoprazole Sodium (Protonix) 40 mg PO BIDAC [facility] Last Admin: 08/03/17 07:29 Dose: 40 mg Polyethylene Glycol (Miralax) 17 gm PO DAILY PRN PRN Reason: Constipation Potassium Chloride (Klor-Con M20) 40 meq PO ONETIME ONE Stop: 08/03/17 09:01 Tramadol HCl (Ultram) 50 mg PO 6XDAY PRN PRN Reason: Pain Warfarin Sodium (Coumadin) 15 mg PO DAILY@1300 [facility] Stop: 08/03/17 13:01 Discontinued Medications Sodium Chloride (Normal Saline) 1,000 mls @ 999 mls/hr IV ASDIRECTED [facility] Last Admin: 08/01/17 09:00 Dose: 999 mls/hr Sodium Chloride (Normal Saline) 1,000 mls @ 999 mls/hr IV ASDIRECTED [facility] Last Admin: 08/01/17 09:50 Dose: 999 mls/hr Vancomycin HCl 2 gm/ Sodium (Chloride) 250 mls @ 150 mls/hr IV ONETIME ONE Stop: 08/01/17 11:26 Last Admin: 08/01/17 10:10 Dose: 150 mls/hr Piperacillin/Tazobactam/ (Dextrose 3.375 gm/ Premix) 50 mls @ 100 mls/hr IV ONETIME ONE Stop: 08/01/17 11:29 Last Admin: 08/01/17 10:33 Dose: 100 mls/hr Sodium Chloride (Normal Saline) 1,000 mls @ 999 mls/hr IV ASDIRECTED [facility] Last Admin: 08/01/17 10:42 Dose: 999 mls/hr Sodium Chloride (Normal Saline) 500 mls @ 500 mls/hr IV .BOLUS [facility] Stop: 08/01/17 13:11 Last Admin: 08/01/17 11:36 Dose: 500 mls/hr Sodium Chloride (Normal Saline) 1,000 mls @ 125 mls/hr IV ASDIRECTED [facility] Last Admin: 08/02/17 02:53 Dose: 125 mls/hr Vancomycin HCl 1.75 gm/ Sodium (Chloride) 250 mls @ 150 mls/hr IV Q12H [facility] Last Admin: 08/02/17 22:35 Dose: 150 mls/hr Ibuprofen (Motrin) 600 mg PO ONETIME ONE Stop: 08/01/17 08:52 Last Admin: 08/01/17 09:00 Dose: 600 mg Metformin HCl (Glucophage Xr) 1,000 mg PO BIDMEALS [facility] Last Admin: 08/02/17 07:57 Dose: 1,000 mg Warfarin Sodium (Coumadin) 10 mg PO DAILY@1300 [facility] Last Admin: 08/02/17 13:07 Dose: 10 mg - Exam Quality Assessment: No: Supplemental Oxygen General: Alert, Oriented, Cooperative, No Acute Distress Neck: Supple Lungs: Normal Respiratory Effort GI/Abdominal Exam: No Distention Extremities: No Pedal Edema, Increased Warmth (both anterior lower legs, R>L) Skin: Warm, Dry, Rash (chronic venous stasis right anterior lower leg ) Psy/Mental Status: Alert, Normal Affect - Problem List & Annotations (1) Sepsis SNOMED Code(s): 65626412 Code(s): A41.9 - SEPSIS, UNSPECIFIED ORGANISM Status: Acute Current Visit : Yes Qualifiers: Sepsis type: sepsis due to unspecified organism Qualified Code(s): A41.9 - Sepsis, unspecified organism (2) Cellulitis SNOMED Code(s): 023940405 Code(s): L03.90 - CELLULITIS, UNSPECIFIED Status: Acute Priority: High Current Visit: Yes Qualifiers: Site of cellulitis: extremity Site of cellulitis of extremity: lower extremity Laterality: unspecified laterality Qualified Code(s): L03.119 - Cellulitis of unspecified part of limb (3) Type 2 diabetes mellitus SNOMED Code(s): 63935477 Code(s): E11.9 - TYPE 2 DIABETES MELLITUS WITHOUT COMPLICATIONS Status: Chronic Priority: High Current Visit: No Qualifiers: Diabetes mellitus complication status: with circulatory complication Diabetes mellitus complication detail: with other circulatory complications Diabetes mellitus braider operator insulin use: with half-way use Qualified Code(s) : E11.59 - Type 2 diabetes mellitus with other circulatory complications; Z79.4 - assisted (current) use of insulin; Z79.4 - emergency crew supervisor (current) use of insulin ; Z79.4 - emergency crew supervisor (current) use of insulin; Z79.4 - emergency crew supervisor (current) use of insulin (4) Obesity (BMI 30-39.9) SNOMED Code(s): 519595970 Code(s): E66.9 - OBESITY, UNSPECIFIED Status: Chronic Current Visit: No (5) 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 SNOMED Code(s): 933118189 Code(s): I25.729 - ATHSCL AUTOLOGOUS ARTERY CABG W UNSP ANGINA PECTORIS Status: Chronic Current Visit: No - Problem List Review Problem List Initiated/Reviewed/Updated: Yes - My Orders Last 24 Hours: My Active Orders 08/02/17 09:00 Sodium Chloride 0.9% [Normal Saline] 1,000 ml IV ASDIRECTED 08/02/17 17:00 metFORMIN [Glucophage] 1,000 mg PO BIDMEALS 08/03/17 08:42 Transfer Patient (Change bed) [ADT] Routine 08/03/17 08:43 Up ad Jewels [RC] ASDIRECTED 08/03/17 09:00 Potassium Chloride [Klor-Con M20] 40 meq PO ONETIME ONE 08/03/17 11:30 GLUCOSE POC LAB TO COLLECT [POC] QIDACANDBED 08/03/17 13:00 Warfarin [Coumadin] 15 mg PO DAILY@1300 08/03/17 16:30 GLUCOSE POC LAB TO COLLECT [POC] QIDACANDBED 08/03/17 21:00 GLUCOSE POC LAB TO COLLECT [POC] QIDACANDBED 08/04/17 05:00 BASIC METABOLIC PANEL,BMP [CHEM] Timed CBC W/O DIFF,HEMOGRAM [HEME] Timed (1) INR,PT,PROTHROMBIN TIME [COAG] Timed 08/04/17 07:30 GLUCOSE POC LAB TO COLLECT [POC] QIDACANDBED 08/04/17 11:30 GLUCOSE POC LAB TO COLLECT [POC] QIDACANDBED 08/04/17 16:30 GLUCOSE POC LAB TO COLLECT [POC] QIDACANDBED 08/04/17 21:00 GLUCOSE POC LAB TO COLLECT [POC] QIDACANDBED 08/05/17 07:30 GLUCOSE POC LAB TO COLLECT [POC] QIDACANDBED 08/05/17 11:30 GLUCOSE POC LAB TO COLLECT [POC] QIDACANDBED 08/05/17 16:30 GLUCOSE POC LAB TO COLLECT [POC] QIDACANDBED 08/05/17 21:00 GLUCOSE POC LAB TO COLLECT [POC] QIDACANDBED 08/06/17 07:30 GLUCOSE POC LAB TO COLLECT [POC] QIDACANDBED 08/06/17 11:30 GLUCOSE POC LAB TO COLLECT [POC] QIDACANDBED 08/06/17 16:30 GLUCOSE POC LAB TO COLLECT [POC] QIDACANDBED 08/06/17 21:00 GLUCOSE POC LAB TO COLLECT [POC] QIDACANDBED 08/07/17 07:30 GLUCOSE POC LAB TO COLLECT [POC] QIDACANDBED 08/07/17 11:30 GLUCOSE POC LAB TO COLLECT [POC] QIDACANDBED 08/07/17 16:30 GLUCOSE POC LAB TO COLLECT [POC] QIDACANDBED 08/07/17 21:00 GLUCOSE POC LAB TO COLLECT [POC] QIDACANDBED 08/08/17 07:30 GLUCOSE POC LAB TO COLLECT [POC] QIDACANDBED 08/08/17 11:30 GLUCOSE POC LAB TO COLLECT [POC] QIDACANDBED 08/08/17 16:30 GLUCOSE POC LAB TO COLLECT [POC] QIDACANDBED - Plan Plan:: ASSESSMENT AND PLAN - Bilateral lower extremity cellulitis with sepsis - sepsis has resolved. There is evidence for bacteremia but identification of the gram-negative tuan is pending. Ongoing clinical improvement. Tolerating current antibiotics. -Discontinue Vancomycin -Continue Pip/Tazo -IV fluids at to keep open -Discontinue Cardiac monitoring -Follow-up cultures History of DVT, right lower leg - INR still low. -Warfarin with increased dose today -Repeat INR in the morning Coronary artery disease - history of coronary artery bypass. Disease seems stable at this time. -Continue medical management Insulin-dependent diabetes mellitus - Significant insulin resistance. Sugars have been well-controlled during the hospital stay. -Continue home insulin dosing -Medium dose sliding scale insulin Obesity with BMI greater than 30 - A short period of counseling was provided regarding potential health benefits of weight loss. Maintenance issues - - DVT prophylaxis - warfarin - GI prophylaxis - PPI - Nutrition - diabetic diet Disposition - anticipate discharge home after the hospital stay. Patient is stable for transfer out of the intensive care unit today. Miquel Dawson M.D.
[2017-08-03] MEDS: metFORMIN 500 MG Tab PO SCH ×2 (08:50→17:55)
[2017-08-03] MEDS: Furosemide 80 MG Tab PO SCH ×2 (08:53→14:55)
[2017-08-03] MEDS: Gabapentin 300 MG Cap PO SCH ×2 (08:54→20:10)
[2017-08-03] MEDS: Lactobacillus Rhamnosus GG (Probiotic) Cap PO SCH ×2 (08:54→20:10)
[2017-08-03] MEDS: Fenofibrate,Micronized 67 MG Cap PO SCH (08:55)
[2017-08-03] MEDS: Metoprolol Tartrate 50 MG Tab PO SCH ×2 (08:56→20:10)
[2017-08-03] MEDS: Aspirin 325 MG Tab.EC PO SCH (08:57)
[2017-08-03] MEDS: Liraglutide (rDNA Origin) 0.6 MG/0.1 ML 3 ML Pen SUBCUT SCH (08:58)
[2017-08-03] MEDS ORDERED: Potassium Chloride 20 MEQ Tab.ER PO ONE (09:00)
[2017-08-03] MEDS ORDERED: Warfarin 5 MG Tab PO SCH (13:00)
[2017-08-03] MEDS: buPROPion 150 MG Tab.ER PO SCH (20:10)
[2017-08-03] MEDS: oxyCODONE 5 MG Tab PO PRN (20:15)
[2017-08-03] MEDS: atorvaSTATin 20 MG Tab PO SCH (20:17)
[2017-08-04] MEDS: Piperacillin/Tazobactam/Dext 3.375 GM in Premix Bag 1 BAG IV SCH ×2 (03:46→08:59)
[2017-08-04] MEDS: Liraglutide (rDNA Origin) 0.6 MG/0.1 ML 3 ML Pen SUBCUT SCH (08:41)
[2017-08-04] MEDS: Insulin Aspart 100 Units/ML 3 ML Pen SUBCUT SCH ×2 (08:41→11:56)
[2017-08-04] MEDS: Lactobacillus Rhamnosus GG (Probiotic) Cap PO SCH (08:45)
[2017-08-04] MEDS: Furosemide 80 MG Tab PO SCH (08:45)
[2017-08-04] MEDS: Pantoprazole 40 MG Tab.CR PO SCH (08:45)
[2017-08-04] MEDS: Fenofibrate,Micronized 67 MG Cap PO SCH (08:46)
[2017-08-04] MEDS: Aspirin 325 MG Tab.EC PO SCH (08:46)
[2017-08-04] MEDS: Metoprolol Tartrate 50 MG Tab PO SCH (08:47)
[2017-08-04] MEDS: Gabapentin 300 MG Cap PO SCH (08:47)
[2017-08-04] MEDS: metFORMIN 500 MG Tab PO SCH (08:47)
[2017-08-04] MEDS: Insulin Regular, Human 100 Units/ML 10 ML Vial SUBCUT SCH (08:53)
[2017-08-04] MEDS ORDERED: Potassium Chloride 20 MEQ Tab.ER PO ONE (09:00)
[2017-08-04 10:38] VITALS: BP 128/61
--- NOTE | 2017-08-04 11:35 | PCM.DCSUM1 ---
Discharge Summary - Hospital Course Brief History: 62 -year-old male with history of insulin dependent diabetes mellitus, chronic venous stasis who presented with fever, confusion and bilateral lower leg pain he was admitted for management of bilateral lower extremity cellulitis with sepsis syndrome. - Discharge Data Discharge Date: 08/04/17 Discharge Disposition: Home, Self-Care 01 Condition: Good - Discharge Diagnosis/Problem(s) (1) Sepsis SNOMED Code(s): 71820662 ICD Code: A41.9 - SEPSIS, UNSPECIFIED ORGANISM Status: Acute Qualifiers: Sepsis type: Escherichia coli Qualified Code(s): A41.51 - Sepsis due to Escherichia coli [E. coli] (2) Cellulitis SNOMED Code(s): 679607257 ICD Code: L03.90 - CELLULITIS, UNSPECIFIED Status: Acute Priority: High Qualifiers: Site of cellulitis: extremity Site of cellulitis of extremity: lower extremity Laterality: unspecified laterality Qualified Code(s): L03.119 - Cellulitis of unspecified part of limb (3) Type 2 diabetes mellitus SNOMED Code(s): 56117155 ICD Code: E11.9 - TYPE 2 DIABETES MELLITUS WITHOUT COMPLICATIONS Status: Chronic Priority: High Qualifiers: Diabetes mellitus complication status: with circulatory complication Diabetes mellitus complication detail: with other circulatory complications 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 Qualified Code(s) : E11.59 - Type 2 diabetes mellitus with other circulatory complications; Z79.4 - [facility] (current) use of insulin; Z79.4 - [facility] (current) use of insulin ; 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 He felt the symptoms were similar to his recent episode of cellulitis and came to the emergency room fairly quickly after symptom onset. Workup in the emergency room revealed evidence for bilateral lower extremity cellulitis as well as sepsis. He received broad- spectrum antibiotics, aggressive IV fluids and cultures were obtained in the emergency room. His lactic acid level was mildly elevated. He was admitted to the intensive care unit for further management. Overnight following admission we did see improvements in his vital signs with normalization of his tachycardia and improvement in his lactic acid level. The morning after admission he had 2 out of 4 bottles of his blood cultures positive for gram- negative tuan and eventually all 4 bottles became positive within 24 hours. We continued broad-spectrum antibiotic coverage until the culture results were available. His sepsis had resolved rather quickly with the aggressive treatment received in the emergency room. On the day of discharge his blood cultures returned growing pansensitive Escherichia coli. He has been afebrile for 24 hours. We did discuss transition to oral antibiotics and discharge tomorrow but we have elected to utilize discharge to home today with transition to oral antibiotics at that time. Given the severity of the infection and recent difficulties I'm going to use a little bit longer course of antibiotics. He will be on cephalexin 500 mg 3 times a day for 2 weeks. He will be on a probiotic while he's on the antibiotics. I encouraged him to take it easy for the next few days and try to elevate his legs if at all possible. He has a list of symptoms that should raise concern and prompt medical attention urgently. He' ll be following up next week to ensure things continue to get better. - Patient Instructions Diet: Diabetic Diet Activity: As Tolerated, No Strenuous Activities (for the next few days) Showering/Bathing: May Shower Notify Provider of: Fever, Increased Pain, Swelling and Redness, Drainage, Nausea and/or Vomiting Other/Special Instructions: 1. You were in the hospital for management of bilateral lower leg cellulitis caused by an Escherichia coli infection. The bacteria was sensitive to all of the antibiotics we tested. I recommend 14 days of treatment with cephalexin (Keflex) taken 3 times daily. You should take this medication with food to avoid stomach upset. 2. Please continue your other medications as previously prescribed. 3. Seek medical attention if you have increased redness, pain or swelling of either of your lower legs or if you develop severe diarrhea, fever greater than 101 or shaking chills. - Discharge Plan Prescriptions/Med Rec: Cephalexin 500 mg PO TID #42 capsule Home Medications: Home Meds Aspirin [Ecotrin] 325 mg PO DAILY 06/28/13 [History] Cholecalciferol (Vitamin D3) [Vitamin D3] 2,000 unit PO DAILY 06/28/13 [History] Fenofibrate,Micronized [Fenofibrate] 134 mg PO DAILY 06/28/13 [History] Furosemide [Lasix] 80 mg PO BID 06/28/13 [History] Gabapentin [Neurontin] 300 mg PO BID 06/28/13 [History] Metoprolol Tartrate [Lopressor] 50 mg PO BID 06/28/13 [History] Multivitamin [Multivitamins] 1 each PO DAILY 06/28/13 [History] Omeprazole 20 mg PO BIDAC 06/28/13 [History] buPROPion [buPROPion XL] 300 mg PO BEDTIME 06/28/13 [History] Albuterol [IJD: Albuterol HFA] 2 puff IH Q4HR PRN 02/10/16 [History] Ibuprofen 800 mg PO Q6HR PRN 02/10/16 [History] Nitroglycerin [Nitrostat] 0.4 mg SL ASDIRECTED PRN 02/10/16 [History] Tadalafil [Cialis] 20 mg PO DAILY PRN 02/10/16 [History] Triamcinolone Acetonide [Triamcinolone Acetonide 0.1% Crm] 1 applic TOP ASDIRECTED PRN 02/10/16 [History] atorvaSTATin [Lipitor] 40 mg PO BEDTIME 02/10/16 [History] traMADol HCl [Ultram] 50 mg PO 6XDAY PRN 02/10/16 [History] Insulin Regular, Human [Humulin R U-500 Kwikpen] 90 units SQ BID 05/30/17 [ History] Insulin Regular, Human [Humulin R U-500 Kwikpen] 120 units SQ DAILY 05/30/17 [ History] Liraglutide [Victoza] 1.8 mg SQ DAILY 05/30/17 [History] Lactobacillus Acidophilus [Acidophilus Lactobacillus] 1 each PO BID #60 capsule 07/01/17 [Rx] Warfarin Sodium 10 mg PO DAILY #0 07/01/17 [Rx] metFORMIN HCl [Metformin HCl] 1,000 mg PO BID 08/02/17 [History] Cephalexin 500 mg PO TID #42 capsule 08/04/17 [Rx] Patient Handouts: Cellulitis, Adult, Cephalexin tablets or capsules Referrals: Malina Garcia MD [Primary Care Provider] - 08/08/17 11:00 am - Discharge Summary/Plan Comment DC Time >30 min.: No (25) - Patient Data Vitals - Most Recent: Last Vital Signs Temp 36.3 C 08/04/17 10:37 Pulse 83 08/04/17 10:37 Resp 16 08/04/17 10:37 BP 128/61 08/04/17 10:37 Pulse Ox 92 L 08/04/17 10:37 Weight - Most Recent: 130.907 kg I&O - Last 24 hours: Intake & Output 08/03/17 08/04/17 08/04/17 22:59 06:59 14:59 Intake Total 791 671 590 Balance 791 671 590 Lab Results - Last 24 hrs: Laboratory Results - last 24 hr 08/04/17 08/04/17 08/04/17 Range/Units 04:59 04:59 04:59 WBC 7.7 (4.5-11.0) K/uL RBC 4.47 (4.30-5.90) M/uL Hgb 12.9 (12.0-15.0) g/dL Hct 39.8 L (40.0-54.0) % MCV 89 (80-98) fL MCH 29 (27-31) pg MCHC 32 (32-36) % Plt Count 272 (150-400) K/uL PT 15.0 H (9.5-12.0) sec INR 1.38 H (0.80-1.20) Sodium 143 (140-148) mmol/L Potassium 3.5 L (3.6-5.2) mmol/L Chloride 101 (100-108) mmol/L Carbon Dioxide 35 H (21-32) mmol/L Anion Gap 10.5 (5.0-14.0) mmol/L BUN 21 H (7-18) mg/dL Creatinine 1.1 (0.8-1.3) mg/dL Est Cr Clr Drug Dosing 82.03 mL/min Estimated GFR (MDRD) > 60 (>60) Glucose 126 H (74-106) mg/dL Calcium 9.2 (8.5-10.1) mg/dL Med Orders - Current: Current Medications Acetaminophen (Tylenol) 650 mg PO Q4H PRN PRN Reason: Pain (Mild 1-3)/fever Last Admin: 08/02/17 21:14 Dose: 650 mg Albuterol (Proventil Neb Soln) 2.5 mg NEB Q4H PRN PRN Reason: Shortness Of Breath/wheezing Aspirin (Ecotrin) 325 mg PO DAILY [facility] Last Admin: 08/04/17 08:46 Dose: 325 mg Atorvastatin Calcium (Lipitor) 40 mg PO BEDTIME [facility] Last Admin: 08/03/17 20:17 Dose: 40 mg Bupropion HCl (Wellbutrin Xl) 300 mg PO BEDTIME [facility] Last Admin: 08/03/17 20:10 Dose: 300 mg Fenofibrate (Fenofibrate) 134 mg PO DAILY [facility] Last Admin: 08/04/17 08:46 Dose: 134 mg Furosemide (Lasix) 80 mg PO BIDDIURETIC [facility] Last Admin: 08/04/17 08:45 Dose: 80 mg Gabapentin (Neurontin) 300 mg PO BID [facility] Last Admin: 08/04/17 08:47 Dose: 300 mg Piperacillin/Tazobactam/ (Dextrose 3.375 gm/ Premix) 50 mls @ 100 mls/hr IV Q6H [facility] Last Admin: 08/04/17 08:59 Dose: 100 mls/hr Sodium Chloride (Normal Saline) 1,000 mls @ 25 mls/hr IV ASDIRECTED [facility] Last Admin: 08/02/17 22:33 Dose: 25 mls/hr Ibuprofen (Motrin) 600 mg PO Q6H PRN PRN Reason: Pain/Fever Last Admin: 08/02/17 19:40 Dose: 600 mg Insulin Aspart (Novolog) 0 unit SUBCUT QIDACANDBED [facility] PRN Reason: Protocol Last Admin: 08/04/17 08:41 Dose: 3 units Insulin Human Regular (Novolin R) 90 unit SUBCUT BIDAC [facility] Last Admin: 08/04/17 08:53 Dose: 90 units Lactobacillus Rhamnosus (Culturelle) 1 cap PO BID [facility] Last Admin: 08/04/17 08:45 Dose: 1 cap Liraglutide (Victoza) 1.8 mg SUBCUT DAILY [facility] Last Admin: 08/04/17 08:41 Dose: 1.8 mg Metformin HCl (Glucophage) 1,000 mg PO BIDMEALS [facility] Last Admin: 08/04/17 08:47 Dose: 1,000 mg Metoprolol Tartrate (Lopressor) 50 mg PO BID [facility] Last Admin: 08/04/17 08:47 Dose: 50 mg Ondansetron HCl (Zofran Odt) 4 mg PO Q6H PRN PRN Reason: Nausea able to take PO Ondansetron HCl (Zofran) 4 mg IV Q6H PRN PRN Reason: Nausea/Vomiting Oxycodone HCl (Oxycodone) 5 mg PO Q4H PRN PRN Reason: Pain (moderate 4-6) Last Admin: 08/03/17 20:15 Dose: 5 mg Pantoprazole Sodium (Protonix) 40 mg PO BIDAC [facility] Last Admin: 08/04/17 08:45 Dose: 40 mg Polyethylene Glycol (Miralax) 17 gm PO DAILY PRN PRN Reason: Constipation Tramadol HCl (Ultram) 50 mg PO 6XDAY PRN PRN Reason: Pain Warfarin Sodium (Coumadin) 15 mg PO ONETIME ONE Stop: 08/04/17 13:01 Discontinued Medications Sodium Chloride (Normal Saline) 1,000 mls @ 999 mls/hr IV ASDIRECTED [facility] Last Admin: 08/01/17 09:00 Dose: 999 mls/hr Sodium Chloride (Normal Saline) 1,000 mls @ 999 mls/hr IV ASDIRECTED [facility] Last Admin: 08/01/17 09:50 Dose: 999 mls/hr Vancomycin HCl 2 gm/ Sodium (Chloride) 250 mls @ 150 mls/hr IV ONETIME ONE Stop: 08/01/17 11:26 Last Admin: 08/01/17 10:10 Dose: 150 mls/hr Piperacillin/Tazobactam/ (Dextrose 3.375 gm/ Premix) 50 mls @ 100 mls/hr IV ONETIME ONE Stop: 08/01/17 11:29 Last Admin: 08/01/17 10:33 Dose: 100 mls/hr Sodium Chloride (Normal Saline) 1,000 mls @ 999 mls/hr IV ASDIRECTED [facility] Last Admin: 08/01/17 10:42 Dose: 999 mls/hr Sodium Chloride (Normal Saline) 500 mls @ 500 mls/hr IV .BOLUS [facility] Stop: 08/01/17 13:11 Last Admin: 08/01/17 11:36 Dose: 500 mls/hr Sodium Chloride (Normal Saline) 1,000 mls @ 125 mls/hr IV ASDIRECTED [facility] Last Admin: 08/02/17 02:53 Dose: 125 mls/hr Vancomycin HCl 1.75 gm/ Sodium (Chloride) 250 mls @ 150 mls/hr IV Q12H [facility] Last Admin: 08/02/17 22:35 Dose: 150 mls/hr Ibuprofen (Motrin) 600 mg PO ONETIME ONE Stop: 08/01/17 08:52 Last Admin: 08/01/17 09:00 Dose: 600 mg Metformin HCl (Glucophage Xr) 1,000 mg PO BIDMEALS [facility] Last Admin: 08/02/17 07:57 Dose: 1,000 mg Potassium Chloride (Klor-Con M20) 40 meq PO ONETIME ONE Stop: 08/03/17 09:01 Last Admin: 08/03/17 08:54 Dose: 40 meq Potassium Chloride (Klor-Con M20) 40 meq PO ONETIME ONE Stop: 08/04/17 09:01 Last Admin: 08/04/17 10:07 Dose: 40 meq Warfarin Sodium (Coumadin) 10 mg PO DAILY@1300 [facility] Last Admin: 08/02/17 13:07 Dose: 10 mg Warfarin Sodium (Coumadin) 15 mg PO DAILY@1300 [facility] Stop: 08/03/17 13:01 Last Admin: 08/03/17 12:59 Dose: 15 mg - Exam Quality Assessment: Denies: Supplemental Oxygen General: Reports: Alert, Oriented, Cooperative, No Acute Distress Lungs: Reports: Normal Respiratory Effort GI/Abdominal Exam: No Distention Extremities: No Pedal Edema, Other (very mild erythema lower anterior flores on the left with very mild warmth in this area. right lower extremity with mild erythema overlying chronic venous stasis changes on the flores. This area is mildly warm to touch.) *Q Meaningful Use (DIS) - VTE *Q VTE Criteria *Q: VTE Mechanical Contraindications *Q: Bilateral Lower Dermatits - Stroke *Q Stroke Criteria *Q: - AMI *Q AMI Criteria *Q:
[2017-08-04] MEDS ORDERED: Warfarin 5 MG Tab PO ONE (13:00)
== END 2017-08-04 12:42 | disposition home or self-care (01) | DRG 872 ==
LOC: JP.ED 08:35 → JP.ICU 10:26 → JP.MS 08-03 10:30
PROVIDERS: ADMIT Internal Medicine; ATTEND Internal Medicine
DX: A41.9 Sepsis, unspecified organism (principal); L03.116 Cellulitis of left lower limb; I25.10 Atherosclerotic heart disease of native coronary artery without angina pectoris; E78.00 Pure hypercholesterolemia, unspecified; I10 Essential (primary) hypertension; F32.9 Major depressive disorder, single episode, unspecified; E11.9 Type 2 diabetes mellitus without complications; Z88.8 Allergy status to other drugs, medicaments and biological substances; I25.729 Atherosclerosis of autologous artery coronary artery bypass graft(s) with unspecified angina pectoris; B96.20 Unspecified Escherichia coli [E. coli] as the cause of diseases classified elsewhere; Z79.01 Long term (current) use of anticoagulants; E11.59 Type 2 diabetes mellitus with other circulatory complications; E66.9 Obesity, unspecified; Z79.4 Long term (current) use of insulin; Z79.899 Other long term (current) drug therapy; Z68.35 Body mass index [BMI] 35.0-35.9, adult; Z95.1 Presence of aortocoronary bypass graft
CPT/HCPCS: 36415; 36600; 71010 ×2; 80053; 82803; 83605; 85025; 85610; 87040 ×2; 87077; 87186; 96361; 96374; 99285; A9270; J3370; J7040 ×2; J7050; 80048; 81001; 82962; 85027; 99284; J2543

== ENCOUNTER 2018-11-27 21:41 | Inpatient (IN) | payer MEDICARE, MEDICAID ==
[2018-11-27] MEDS: Sodium Chloride 0.9% 1,000 ML IV SCH ×2 (21:50→22:26)
[2018-11-27] MEDS ORDERED: Acetaminophen 650 MG Supp RECTAL ONE (21:52)
--- NOTE | 2018-11-27 22:01 | EDM.PDOC ---
ED HPI GENERAL MEDICAL PROBLEM - General Stated Complaint: MEDICAL [facility] Time Seen by Provider: 11/27/18 21:49 Source of Information: Reports: EMS History Limitations: Reports: Altered Mental Status - History of Present Illness Onset: Unknown/Unsure Duration: Constant - Related Data Allergies Allergy/AdvReac Type Severity Reaction Status Date / Time methyldopa [From Aldomet] Allergy Cough Verified 11/27/18 22:56 methyldopate HCl Allergy Cough Verified 11/27/18 22:56 [From Aldomet] Home Meds: Home Meds Cholecalciferol (Vitamin D3) [Vitamin D3] 2,000 unit PO DAILY 06/28/13 [History] Fenofibrate,Micronized [Fenofibrate] 134 mg PO DAILY 06/28/13 [History] Furosemide [Lasix] 80 mg PO BID 06/28/13 [History] Gabapentin [Neurontin] 600 mg PO TID 06/28/13 [History] Omeprazole 20 mg PO BIDAC 06/28/13 [History] buPROPion [buPROPion XL] 300 mg PO BEDTIME 06/28/13 [History] atorvaSTATin [Lipitor] 40 mg PO BEDTIME 02/10/16 [History] metFORMIN HCl [Metformin HCl] 1,000 mg PO BID 08/02/17 [History] Empagliflozin [Jardiance] 25 mg PO DAILY 07/07/18 [History] Liraglutide [Victoza] 1.8 mg SUBCUT DAILY 07/07/18 [History] Loratadine 10 mg PO DAILY 07/07/18 [History] Metoprolol Tartrate 100 mg PO BID 07/07/18 [History] Cephalexin [Keflex] 500 mg PO Q8H #15 capsule 07/11/18 [Rx] Insulin Regular, Human [Humulin R U-500 Kwikpen] 10 units SQ PCLUNCH #0 [Rx] Insulin Regular, Human [Humulin R U-500 Kwikpen] 10 units SQ QAM #0 07/11/18 [Rx ] Insulin Regular, Human [Humulin R U-500 Kwikpen] 10 units SUBCUT WITHDINNER #0 07/11/18 [Rx] Lactobacillus Rhamnosus GG [Culturelle] 1 cap PO BID #60 cap 07/11/18 [Rx] Past Medical History Cardiovascular History: Reports: Blood Clots/VTE/DVT, CAD, High Cholesterol, Hypertension Respiratory History: Reports: Asthma Musculoskeletal History: Reports: Other (See Below) Other Musculoskeletal History: bilateral rotator cuff surgery Psychiatric History: Reports: Depression Endocrine/Metabolic History: Reports: Diabetes, Type II Dermatologic History: Reports: Cellulitis - Infectious Disease History Infectious Disease History: Reports: Chicken Pox - Past Surgical History HEENT Surgical History: Reports: Tonsillectomy Cardiovascular Surgical History: Reports: Coronary Artery Bypass GI Surgical History: Reports: Colonoscopy Musculoskeletal Surgical History: Reports: Arthroscopic Knee, Shoulder Surgery Social & Family History - Family History Family Medical History: Noncontributory - Caffeine Use Caffeine Use: Reports: Coffee - Living Situation & Occupation Living situation: Reports: with Significant Other (Lives in [place] with significant other, has 1 child who lives [place], [place].) Occupation: Retired ED ROS GENERAL - Review of Systems Review Of Systems: Unable To Obtain Constitutional: Reports: TOM unobtainable ED EXAM, SEPSIS - Physical Exam Exam: See Below Exam Limited By: Altered Mental Status General Appearance: Moderate Distress Eye Exam: Bilateral Eye: Normal Inspection (Responds) Ears: Normal External Exam Nose: Normal Inspection Throat/Mouth: No Airway Compromise, Other (Dry mouth) Head: Atraumatic Neck: Supple Respiratory/Chest: No Respiratory Distress Cardiovascular: Normal Peripheral Pulses, Tachycardia Peripheral Pulses: GI/Abdominal Exam: Normal Bowel Sounds (Male) Exam: Normal Inspection Rectal (Males) Exam: Deferred Back: Normal Inspection Extremities: Increased Warmth (Right leg warm, dark), Redness (Right leg redness ) Neurological: Unresponsive Psychiatric: Other (Delirium) Skin: Warm, Dry Lymphatic: Bilateral: No Adenopathy EKG INTERPRETATION EKG Date: 11/27/18 Rate (Beats/Min): 115 EKG Interpretation Comments: Sinus tachycardia Course - Vital Signs Text/Narrative:: Patient was febrile and verbally unresponsive in arrival. Rapid infusion of 2 liters of normal saline was begun. He received 650 mg of rectal acetaminophen. His temperature was reduced to 100.6 later. He received haloperidol 2 mg IV for agitation. Friends came and were present in the room for 10 minutes while I reviewed his status with them. Portable chest x-ray did not show any obvious infiltrate. He prefers to lie on his left side. Case was reviewed with Dr. Bhatt, the on-call physician. He will be admitted to the ICU. Vancomycin 1000 mg IV and Zosyn 4.5 gm IV will be given. He appeared less agitated and more relaxed. Last Recorded V/S: Last Vital Signs Temp 37.6 C 11/27/18 23:59 Pulse 110 H 11/27/18 23:59 Resp 33 H 11/27/18 23:59 BP 132/65 11/27/18 23:59 Pulse Ox 92 L 11/27/18 23:59 - Orders/Labs/Meds Orders: Active Orders 24 hr Category Date Time Status Patient Status Manage Transfer [TRANSFER] Routine ADT 11/27/18 23:49 Active EKG Documentation Completion [RC] ASDIRECTED Care 11/27/18 23:13 Active Becerra Catheter Insertion [Insert Urinary Catheter] [OM. Care 11/27/18 22:00 Ordered PC] Q24H Urinary Catheter Assessment [RC] ASDIRECTED Care 11/27/18 22:00 Active CULTURE BLOOD [BC] Stat Lab 11/27/18 22:18 Received CULTURE BLOOD [BC] Stat Lab 11/27/18 22:28 Ordered CULTURE URINE [RM] Stat Lab 11/27/18 22:23 Received Piperacillin/Tazobactam [Zosyn] 4.5 gm Med 11/27/18 23:35 Ordered Sodium Chloride 0.9% [Normal Saline] 100 ml IV ONETIME Sodium Chloride 0.9% [Normal Saline] 1,000 ml Med 11/27/18 23:38 Ordered IV .BOLUS Sodium Chloride 0.9% [Normal Saline] 1,000 ml Med 11/27/18 22:00 Active IV ASDIRECTED Vancomycin 1 gm Med 11/27/18 23:34 Ordered Sodium Chloride 0.9% [Normal Saline] 250 ml IV ONETIME Resuscitation Status Routine Resus Stat 11/27/18 23:54 Ordered EKG 12 Lead [EK] Stat Ther 11/27/18 23:13 Ordered Medication Orders Sodium Chloride (Normal Saline) 1,000 mls @ 999 mls/hr IV ASDIRECTED [facility] Last Admin: 11/27/18 22:26 Dose: 999 mls/hr Infusion: 11/27/18 22:26 Dose: 999 mls/hr Admin: 11/27/18 21:50 Dose: 999 mls/hr Vancomycin HCl 1 gm/ Sodium (Chloride) 250 mls @ 150 mls/hr IV ONETIME ONE Stop: 11/28/18 01:13 Last Admin: 11/27/18 23:43 Dose: 150 mls/hr Piperacillin Sod/Tazobactam (Sod 4.5 gm/ Sodium Chloride) 100 mls @ 100 mls/hr IV ONETIME ONE Stop: 11/28/18 00:34 Last Admin: 11/27/18 23:53 Dose: 100 mls/hr Sodium Chloride (Normal Saline) 1,000 mls @ 999 mls/hr IV .BOLUS ONE Stop: 11/28/18 00:38 Last Admin: 11/27/18 23:41 Dose: 999 mls/hr Labs: Laboratory Tests 11/27/18 11/27/18 11/27/18 Range/Units 22:18 22:18 22:20 WBC 17.6 H (4.5-11.0) K/uL RBC 5.41 (4.30-5.90) M/uL Hgb 15.5 H D (12.0-15.0) g/dL Hct 47.3 (40.0-54.0) % MCV 87 (80-98) fL MCH 29 (27-31) pg MCHC 33 (32-36) % Plt Count 241 (150-400) K/uL Neut % (Auto) 93 H (36-66) % Lymph % (Auto) 4 L (24-44) % Cottle % (Auto) 3 (2-6) % Eos % (Auto) 0 L (2-4) % Baso % (Auto) 0 (0-1) % Sodium 143 (140-148) mmol/L Potassium 3.5 L (3.6-5.2) mmol/L Chloride 104 (100-108) mmol/L Carbon Dioxide 23 (21-32) mmol/L Anion Gap 19.5 H (5.0-14.0) mmol/L BUN 26 H (7-18) mg/dL Creatinine 1.6 H (0.8-1.3) mg/dL Est Cr Clr Drug Dosing 55.66 mL/min Estimated GFR (MDRD) 44 L (>60) Glucose 191 H (74-106) mg/dL Lactic Acid 4.8 H (0.4-2.0) mmol/L Calcium 9.5 D (8.5-10.1) mg/dL Total Bilirubin 0.5 (0.2-1.0) mg/dL AST 28 (15-37) U/L ALT 31 (12-78) U/L Alkaline Phosphatase 54 (46-116) U/L Total Protein 7.5 (6.4-8.2) g/dL Albumin 3.3 L (3.4-5.0) g/dL Globulin 4.2 H (2.3-3.5) g/dL Albumin/Globulin Ratio 0.8 L (1.2-2.2) Urine Color Urine Appearance Urine pH (4.5-8.0) Ur Specific Grayson (1.008-1.030) Urine Protein (NEGATIVE) mg/dL Urine Glucose (UA) (NEGATIVE) mg/dL Urine Ketones (NEGATIVE) mg/dL Urine Occult Blood (NEGATIVE) Urine Nitrite (NEGAITVE) Urine Bilirubin (NEGATIVE) Urine Urobilinogen (NORMAL) mg/dL Ur Leukocyte Esterase (NEGATIVE) Urine RBC (0-5) Urine WBC (0-5) Ur Epithelial Cells Amorphous Sediment Urine Bacteria Urine Mucus 11/27/18 Range/Units 22:31 WBC (4.5-11.0) K/uL RBC (4.30-5.90) M/uL Hgb (12.0-15.0) g/dL Hct (40.0-54.0) % MCV (80-98) fL MCH (27-31) pg MCHC (32-36) % Plt Count (150-400) K/uL Neut % (Auto) (36-66) % Lymph % (Auto) (24-44) % Cottle % (Auto) (2-6) % Eos % (Auto) (2-4) % Baso % (Auto) (0-1) % Sodium (140-148) mmol/L Potassium (3.6-5.2) mmol/L Chloride (100-108) mmol/L Carbon Dioxide (21-32) mmol/L Anion Gap (5.0-14.0) mmol/L BUN (7-18) mg/dL Creatinine (0.8-1.3) mg/dL Est Cr Clr Drug Dosing mL/min Estimated GFR (MDRD) (>60) Glucose (74-106) mg/dL Lactic Acid (0.4-2.0) mmol/L Calcium (8.5-10.1) mg/dL Total Bilirubin (0.2-1.0) mg/dL AST (15-37) U/L ALT (12-78) U/L Alkaline Phosphatase (46-116) U/L Total Protein (6.4-8.2) g/dL Albumin (3.4-5.0) g/dL Globulin (2.3-3.5) g/dL Albumin/Globulin Ratio (1.2-2.2) Urine Color Yellow Urine Appearance Clear Urine pH 8.0 (4.5-8.0) Ur Specific Grayson 1.005 L (1.008-1.030) Urine Protein Trace (NEGATIVE) mg/dL Urine Glucose (UA) >1000 H (NEGATIVE) mg/dL Urine Ketones 15 H (NEGATIVE) mg/dL Urine Occult Blood Moderate (NEGATIVE) Urine Nitrite Negative (NEGAITVE) Urine Bilirubin Negative (NEGATIVE) Urine Urobilinogen Normal (NORMAL) mg/dL Ur Leukocyte Esterase Negative (NEGATIVE) Urine RBC 0-5 (0-5) Urine WBC 0-5 (0-5) Ur Epithelial Cells Few Amorphous Sediment Not seen Urine Bacteria Rare Urine Mucus Not seen Meds: Medications Generic Name Dose Route Start Last Admin Trade Name Freq PRN Reason Stop Dose Admin Sodium Chloride 1,000 mls @ 999 mls/hr 11/27/18 22:00 11/27/18 22:26 Normal Saline IV 999 mls/hr ASDIRECTED GONZALO Administration Vancomycin HCl 1 gm/ Sodium 250 mls @ 150 mls/hr 11/27/18 23:34 11/27/18 23: 43 Chloride IV 11/28/18 01:13 150 mls/hr ONETIME ONE Administration Piperacillin Sod/Tazobactam 100 mls @ 100 mls/hr 11/27/18 23:35 11/27/18 23: 53 Sod 4.5 gm/ Sodium Chloride IV 11/28/18 00:34 100 mls/hr ONETIME ONE Administration Sodium Chloride 1,000 mls @ 999 mls/hr 11/27/18 23:38 11/27/18 23:41 Normal Saline IV 11/28/18 00:38 999 mls/hr .BOLUS ONE Administration Discontinued Medications Generic Name Dose Route Start Last Admin Trade Name Freq PRN Reason Stop Dose Admin Acetaminophen 650 mg 11/27/18 21:52 11/27/18 22:04 Tylenol RECTAL 11/27/18 21:53 650 mg NOW ONE Administration Haloperidol Lactate 2 mg 11/27/18 22:32 11/27/18 22:36 Haldol IVPUSH 11/27/18 22:33 2 mg ONETIME ONE Administration Sodium Chloride 1,000 mls @ 999 mls/hr 11/27/18 22:19 11/27/18 22:43 Normal Saline IV 11/27/18 23:19 999 mls/hr .BOLUS ONE Administration - Radiology Interpretation Free Text/Narrative:: Chest x-ray ordered and reviewed by me shows no obvious infiltrates or acute changes. Departure - Departure Time of Disposition: 00:10 Disposition: Admitted As Inpatient 67 Condition: Serious Clinical Impression: Systemic infection Cellulitis Qualifiers: Site of cellulitis: extremity Site of cellulitis of extremity: lower extremity Laterality: left Qualified Code(s): L03.116 - Cellulitis of left lower limb - Discharge Information *PRESCRIPTION DRUG MONITORING PROGRAM REVIEWED*: Not Applicable *COPY OF PRESCRIPTION DRUG MONITORING REPORT IN PATIENT TOO: Not Applicable Referrals: PCP,None [Primary Care Provider] - - My Orders Last 24 Hours: My Active Orders 11/27/18 22:00 Becerra Catheter Insertion [Insert Urinary Catheter] [OM.PC] Q24H Urinary Catheter Assessment [RC] ASDIRECTED Sodium Chloride 0.9% [Normal Saline] 1,000 ml IV ASDIRECTED 11/27/18 22:18 CULTURE BLOOD [BC] Stat 11/27/18 22:23 CULTURE URINE [RM] Stat 11/27/18 22:28 CULTURE BLOOD [BC] Stat 11/27/18 23:13 EKG Documentation Completion [RC] ASDIRECTED EKG 12 Lead [EK] Stat 11/27/18 23:34 Vancomycin 1 gm Sodium Chloride 0.9% [Normal Saline] 250 ml IV ONETIME 11/27/18 23:35 Piperacillin/Tazobactam [Zosyn] 4.5 gm Sodium Chloride 0.9% [Normal Saline] 100 ml IV ONETIME 11/27/18 23:38 Sodium Chloride 0.9% [Normal Saline] 1,000 ml IV .BOLUS - Assessment/Plan Last 24 Hours: My Active Orders 11/27/18 22:00 Becerra Catheter Insertion [Insert Urinary Catheter] [OM.PC] Q24H Urinary Catheter Assessment [RC] ASDIRECTED Sodium Chloride 0.9% [Normal Saline] 1,000 ml IV ASDIRECTED 11/27/18 22:18 CULTURE BLOOD [BC] Stat 11/27/18 22:23 CULTURE URINE [RM] Stat 11/27/18 22:28 CULTURE BLOOD [BC] Stat 11/27/18 23:13 EKG Documentation Completion [RC] ASDIRECTED EKG 12 Lead [EK] Stat 11/27/18 23:34 Vancomycin 1 gm Sodium Chloride 0.9% [Normal Saline] 250 ml IV ONETIME 11/27/18 23:35 Piperacillin/Tazobactam [Zosyn] 4.5 gm Sodium Chloride 0.9% [Normal Saline] 100 ml IV ONETIME 11/27/18 23:38 Sodium Chloride 0.9% [Normal Saline] 1,000 ml IV .BOLUS
[2018-11-27] MEDS ORDERED: Sodium Chloride 0.9% 1,000 ML IV ONE ×2 (22:19→23:38)
[2018-11-27] MEDS ORDERED: Haloperidol Lactate 5 MG/ML SDV IVPUSH ONE (22:32)
--- NOTE | 2018-11-27 23:07 | CRLCR ---
INDICATION: Fever confusion TECHNIQUE: Chest radiograph 1 view COMPARISON: 07/07/2018 FINDINGS: Moderate to severe degradation of image quality noted due to body habitus. Mediastinum: Previous median sternotomy and coronary artery bypass grafting (CABG) noted. The heart silhouette is normal in size and morphology. Lung: Small lung volumes are present with minimal left basal atelectasis. The left lateral costophrenic sulcus is excluded. No sign of pleural effusion seen. No pneumothorax is identified. Musculoskeletal: Unremarkable for age. IMPRESSION: 1. Small lung volumes are present with minimal left basal atelectasis. Dictated by Nikos Cabrera MD @ 11/27/2018 11:05:36 PM Dictated by: Nikos Cabrera MD @ 11/27/2018 23:05:39 (Electronically Signed)
[2018-11-27] MEDS ORDERED: Piperacillin/Tazobactam 4.5 GM in Sodium Chloride 0.9% 100 ML IV ONE (23:35)
--- NOTE | 2018-11-28 | PCM.HP ---
H&P History of Present Illness - General Date of Service: 11/27/18 Admit Problem/Dx: Admission Diagnosis/Problem Admission Diagnosis/Problem Cellulitis Source of Information: Old Records, Provider, RN Notes Reviewed History Limitations: Reports: Altered Mental Status (Lethargic and agitated) - History of Present Illness Initial Comments - Free Text/Narative: Mr. Rosario is a 63-year-old gentleman who was admitted through the emergency department with sepsis and decreased level of consciousness secondary to cellulitis of the right lower extremity. He was hospitalized at this facility last June with similar symptoms and findings except the cellulitis at that time was in the left leg. Because of his current decreased level of consciousness and agitation is unable to provide significant history concerning recent symptoms or review of systems. History obtained in the emergency department from a friend that lives with him was that he was last known to be normal at approximately 10 PM last night. When his friend arrived home this evening she found him to be confused and agitated. He was brought into the emergency department for further evaluation. On presentation of the emergency department he was found to be tachycardic, blood pressure and oxygenation were adequate. Physical examination showed erythema of the right lower leg with increased swelling and warmth. Urine is clear showing no evidence of infection and there is no evidence of significant infiltrate on chest x-ray. White blood cell count is elevated as is his lactic acid level. He has been given vigorous IV fluid replacement in the emergency department per sepsis protocol and started on IV antibiotic therapy with vancomycin and Zosyn. - Related Data Allergies/Adverse Reactions: Allergies Allergy/AdvReac Type Severity Reaction Status Date / Time methyldopa [From Aldomet] Allergy Cough Verified 11/27/18 22:56 methyldopate HCl Allergy Cough Verified 11/27/18 22:56 [From Aldomet] Home Medications: Home Meds Cholecalciferol (Vitamin D3) [Vitamin D3] 2,000 unit PO DAILY 06/28/13 [History] Fenofibrate,Micronized [Fenofibrate] 134 mg PO DAILY 06/28/13 [History] Furosemide [Lasix] 80 mg PO BID 06/28/13 [History] Gabapentin [Neurontin] 600 mg PO TID 06/28/13 [History] Omeprazole 20 mg PO BIDAC 06/28/13 [History] buPROPion [buPROPion XL] 300 mg PO BEDTIME 06/28/13 [History] atorvaSTATin [Lipitor] 40 mg PO BEDTIME 02/10/16 [History] metFORMIN HCl [Metformin HCl] 1,000 mg PO BID 08/02/17 [History] Empagliflozin [Jardiance] 25 mg PO DAILY 07/07/18 [History] Liraglutide [Victoza] 1.8 mg SUBCUT DAILY 07/07/18 [History] Loratadine 10 mg PO DAILY 07/07/18 [History] Metoprolol Tartrate 100 mg PO BID 07/07/18 [History] Cephalexin [Keflex] 500 mg PO Q8H #15 capsule 07/11/18 [Rx] Insulin Regular, Human [Humulin R U-500 Kwikpen] 10 units SQ PCLUNCH #0 [Rx] Insulin Regular, Human [Humulin R U-500 Kwikpen] 10 units SQ QAM #0 07/11/18 [Rx ] Insulin Regular, Human [Humulin R U-500 Kwikpen] 10 units SUBCUT WITHDINNER #0 07/11/18 [Rx] Lactobacillus Rhamnosus GG [Culturelle] 1 cap PO BID #60 cap 07/11/18 [Rx] Past Medical History Cardiovascular History: Reports: Blood Clots/VTE/DVT, CAD, High Cholesterol, Hypertension Respiratory History: Reports: Asthma Musculoskeletal History: Reports: Other (See Below) Other Musculoskeletal History: bilateral rotator cuff surgery Psychiatric History: Reports: Depression Endocrine/Metabolic History: Reports: Diabetes, Type II Dermatologic History: Reports: Cellulitis - Infectious Disease History Infectious Disease History: Reports: Chicken Pox - Past Surgical History HEENT Surgical History: Reports: Tonsillectomy Cardiovascular Surgical History: Reports: Coronary Artery Bypass GI Surgical History: Reports: Colonoscopy Musculoskeletal Surgical History: Reports: Arthroscopic Knee, Shoulder Surgery Social & Family History - Family History Family Medical History: Noncontributory - Tobacco Use Smoking Status *Q: Current Every Day Smoker Years of Tobacco use: 2 Packs/Tins Daily: 0.5 Used Tobacco, but Quit: No Second Hand Smoke Exposure: No - Caffeine Use Caffeine Use: Reports: Coffee - Recreational Drug Use Recreational Drug Use: No - Living Situation & Occupation Living situation: Reports: with Significant Other (Lives in [place] with significant other, has 1 child who lives [place], [place].) Occupation: Retired H&P Review of Systems - Review of Systems: Review Of Systems: Unable To Obtain General: Reports: ROS unobtainable (Secondary to lethargy and agitation) Exam - Exam Exam: See Below - Vital Signs Vital Signs: Last Vital Signs Temp 100.2 F 11/27/18 23:15 Pulse 111 H 11/27/18 23:15 Resp 31 H 11/27/18 23:15 BP 155/69 H 11/27/18 23:15 Pulse Ox 96 11/27/18 23:15 Weight: 285 lb 15.033 oz - Exam Quality Assessment: Supplemental Oxygen, Urinary Catheter, DVT Prophylaxis General: Lethargic HEENT: Conjunctiva Clear, Normal Nasal Septum, Posterior Pharynx Clear, Pupils Equal, Pupils Reactive. No: Mucosa Moist & [place]: Supple, Trachea Midline, +2 Carotid Pulse wo Bruit Lungs: Clear to Auscultation, Normal Respiratory Effort Cardiovascular: Regular Rhythm, Normal S1, Normal S2, Tachycardia. No: Systolic Murmur, Diastolic Murmur GI/Abdominal Exam: Soft, Non-Tender, No Organomegaly, No Distention Extremities: Increased Warmth (Right lower leg), Redness (Right lower leg) Skin: Warm, Dry Neuro Extensive - Mental Status: Withdraws to Pain Psychiatric: Agitated - Patient Data Lab Results Last 24 hrs: Laboratory Results - last 24 hr 11/27/18 11/27/18 11/27/18 Range/Units 22:18 22:18 22:20 WBC 17.6 H (4.5-11.0) K/uL RBC 5.41 (4.30-5.90) M/uL Hgb 15.5 H D (12.0-15.0) g/dL Hct 47.3 (40.0-54.0) % MCV 87 (80-98) fL MCH 29 (27-31) pg MCHC 33 (32-36) % Plt Count 241 (150-400) K/uL Neut % (Auto) 93 H (36-66) % Lymph % (Auto) 4 L (24-44) % [place] % (Auto) 3 (2-6) % Eos % (Auto) 0 L (2-4) % Baso % (Auto) 0 (0-1) % Sodium 143 (140-148) mmol/L Potassium 3.5 L (3.6-5.2) mmol/L Chloride 104 (100-108) mmol/L Carbon Dioxide 23 (21-32) mmol/L Anion Gap 19.5 H (5.0-14.0) mmol/L BUN 26 H (7-18) mg/dL Creatinine 1.6 H (0.8-1.3) mg/dL Est Cr Clr Drug Dosing 55.66 mL/min Estimated GFR (MDRD) 44 L (>60) Glucose 191 H (74-106) mg/dL Lactic Acid 4.8 H (0.4-2.0) mmol/L Calcium 9.5 D (8.5-10.1) mg/dL Total Bilirubin 0.5 (0.2-1.0) mg/dL AST 28 (15-37) U/L ALT 31 (12-78) U/L Alkaline Phosphatase 54 (46-116) U/L Total Protein 7.5 (6.4-8.2) g/dL Albumin 3.3 L (3.4-5.0) g/dL Globulin 4.2 H (2.3-3.5) g/dL Albumin/Globulin Ratio 0.8 L (1.2-2.2) Urine Color Urine Appearance Urine pH (4.5-8.0) Ur Specific [place] (1.008-1.030) Urine Protein (NEGATIVE) mg/dL Urine Glucose (UA) (NEGATIVE) mg/dL Urine Ketones (NEGATIVE) mg/dL Urine Occult Blood (NEGATIVE) Urine Nitrite (NEGAITVE) Urine Bilirubin (NEGATIVE) Urine Urobilinogen (NORMAL) mg/dL Ur Leukocyte Esterase (NEGATIVE) Urine RBC (0-5) Urine WBC (0-5) Ur Epithelial Cells Amorphous Sediment Urine Bacteria Urine Mucus 11/27/18 Range/Units 22:31 WBC (4.5-11.0) K/uL RBC (4.30-5.90) M/uL Hgb (12.0-15.0) g/dL Hct (40.0-54.0) % MCV (80-98) fL MCH (27-31) pg MCHC (32-36) % Plt Count (150-400) K/uL Neut % (Auto) (36-66) % Lymph % (Auto) (24-44) % Jewell % (Auto) (2-6) % Eos % (Auto) (2-4) % Baso % (Auto) (0-1) % Sodium (140-148) mmol/L Potassium (3.6-5.2) mmol/L Chloride (100-108) mmol/L Carbon Dioxide (21-32) mmol/L Anion Gap (5.0-14.0) mmol/L BUN (7-18) mg/dL Creatinine (0.8-1.3) mg/dL Est Cr Clr Drug Dosing mL/min Estimated GFR (MDRD) (>60) Glucose (74-106) mg/dL Lactic Acid (0.4-2.0) mmol/L Calcium (8.5-10.1) mg/dL Total Bilirubin (0.2-1.0) mg/dL AST (15-37) U/L ALT (12-78) U/L Alkaline Phosphatase (46-116) U/L Total Protein (6.4-8.2) g/dL Albumin (3.4-5.0) g/dL Globulin (2.3-3.5) g/dL Albumin/Globulin Ratio (1.2-2.2) Urine Color Yellow Urine Appearance Clear Urine pH 8.0 (4.5-8.0) Ur Specific [place] 1.005 L (1.008-1.030) Urine Protein Trace (NEGATIVE) mg/dL Urine Glucose (UA) >1000 H (NEGATIVE) mg/dL Urine Ketones 15 H (NEGATIVE) mg/dL Urine Occult Blood Moderate (NEGATIVE) Urine Nitrite Negative (NEGAITVE) Urine Bilirubin Negative (NEGATIVE) Urine Urobilinogen Normal (NORMAL) mg/dL Ur Leukocyte Esterase Negative (NEGATIVE) Urine RBC 0-5 (0-5) Urine WBC 0-5 (0-5) Ur Epithelial Cells Few Amorphous Sediment Not seen Urine Bacteria Rare Urine Mucus Not seen Result Diagrams: 11/27/18 22:18 11/27/18 22:20 *Q Meaningful Use (ADM) - VTE Risk Assess *Q Each Risk Factor Represents 1 Point: None Total Score 1 Point Risk Factors: 0 Each Risk Factor Represents 2 Points: Age 60 - 74 Years Total Score 2 Point Risk Factors: 2 Each Risk Factor Represents 3 Points: History of DVT/PE Total Score 3 Point Risk Factors: 3 Each Risk Factor Represents 5 Points: None Total Score 5 Point Risk Factors: 0 Venous Thromboembolism Risk Factor Score *Q: 5 Problem List Initiated/Reviewed/Updated: Yes Orders Last 24hrs: Active Orders 24 hr Category Date Time Status Patient Status Manage Transfer [TRANSFER] Routine ADT 11/27/18 23:49 Ordered EKG Documentation Completion [RC] ASDIRECTED Care 11/27/18 23:13 Active Becerra Catheter Insertion [Insert Urinary Catheter] [OM. Care 11/27/18 22:00 Ordered PC] Q24H Urinary Catheter Assessment [RC] ASDIRECTED Care 11/27/18 22:00 Active CULTURE BLOOD [BC] Stat Lab 11/27/18 22:18 Received CULTURE BLOOD [BC] Stat Lab 11/27/18 22:28 Ordered CULTURE URINE [RM] Stat Lab 11/27/18 22:23 Received Piperacillin/Tazobactam [Zosyn] 4.5 gm Med 11/27/18 23:35 Active Sodium Chloride 0.9% [Normal Saline] 100 ml IV ONETIME Sodium Chloride 0.9% [Normal Saline] 1,000 ml Med 11/27/18 23:38 Active IV .BOLUS Sodium Chloride 0.9% [Normal Saline] 1,000 ml Med 11/27/18 22:00 Active IV ASDIRECTED Vancomycin 1 gm Med 11/27/18 23:34 Active Sodium Chloride 0.9% [Normal Saline] 250 ml IV ONETIME Resuscitation Status Routine Resus Stat 11/27/18 23:54 Ordered EKG 12 Lead [EK] Stat Ther 11/27/18 23:13 Ordered Medication Orders Sodium Chloride (Normal Saline) 1,000 mls @ 999 mls/hr IV ASDIRECTED [facility] Last Admin: 11/27/18 22:26 Dose: 999 mls/hr Infusion: 11/27/18 22:26 Dose: 999 mls/hr Admin: 11/27/18 21:50 Dose: 999 mls/hr Vancomycin HCl 1 gm/ Sodium (Chloride) 250 mls @ 150 mls/hr IV ONETIME ONE Stop: 11/28/18 01:13 Last Admin: 11/27/18 23:43 Dose: 150 mls/hr Piperacillin Sod/Tazobactam (Sod 4.5 gm/ Sodium Chloride) 100 mls @ 100 mls/hr IV ONETIME ONE Stop: 11/28/18 00:34 Last Admin: 11/27/18 23:53 Dose: 100 mls/hr Sodium Chloride (Normal Saline) 1,000 mls @ 999 mls/hr IV .BOLUS ONE Stop: 11/28/18 00:38 Last Admin: 11/27/18 23:41 Dose: 999 mls/hr Assessment/Plan Comment:: ASSESSMENT AND PLAN Right lower extremity cellulitis with sepsis - fairly rapid progression, last known to be well at 10 PM last night. This evening found by his friend to be agitated and confused with decreased level of consciousness. Marked erythema of the right lower leg identified on evaluation in the emergency department, no other obvious source of infection noted. Symptoms are very similar to what he experienced last June except that at that time the infection involved his left lower leg. -ICU admission -Antibiotic coverage with vancomycin and Zosyn -Complete 30 mL/kg bolus and continue IV fluids with lactated Ringer's -Serial lactic acid levels -Follow-up cultures -Pain control Acute kidney injury -secondary to sepsis. Creatinine found to be elevated from baseline, expect improvement with management of sepsis and IV fluids -Management as above Insulin-dependent diabetes mellitus -Medium dose sliding scale -Hold metformin with acute kidney injury -Continue Victoza Coronary artery disease - He does have a history of a bypass surgery. -Continue medical management including metoprolol Maintenance issues - - DVT prophylaxis - enoxaparin - GI prophylaxis - PPI - Nutrition - consistent carbohydrate - Becerra catheter - will be placed for strict intake and output monitoring and a critical patient CODE STATUS - full code Admission justification - This patient will be admitted for inpatient services and is medically appropriate meeting medical necessity for inpatient admission as outlined in my documentation. I reasonably expect the patient will require inpatient services that span a period time over 2 midnights. I reasonably expect this patient to be discharged or transferred within 96 hours [facility]. Disposition - I would anticipate discharge home after the hospital stay Primary care physician - Malina Garcia
[2018-11-28] MEDS ORDERED: Ondansetron 4 MG/2 ML SDV IV PRN (00:46)
[2018-11-28] MEDS ORDERED: Albuterol 0.083% 2.5 MG/3 ML Neb Soln NEB PRN (00:46)
[2018-11-28] MEDS ORDERED: Polyethylene Glycol 3350 Powder 17 GM Packet PO PRN (00:46)
[2018-11-28] MEDS ORDERED: Lactated Ringers 1,000 ML IV SCH (00:46)
[2018-11-28] MEDS ORDERED: Vancomycin 1 GM SDV IV SCH (00:46)
[2018-11-28] MEDS ORDERED: 50% Dextrose in Water 50 ML Syringe IV PRN (00:46)
[2018-11-28] MEDS ORDERED: Haloperidol Lactate 5 MG/ML SDV IVPUSH PRN (00:46)
[2018-11-28] MEDS ORDERED: Glucose Gel 15 GM in 37.5 GM Tube PO PRN (00:46)
[2018-11-28] MEDS ORDERED: Sodium Chloride 0.9% 10 ML Syringe FLUSH PRN (00:46)
[2018-11-28] MEDS ORDERED: Acetaminophen 650 MG Supp RECTAL PRN (00:59)
[2018-11-28] MEDS: Enoxaparin 40 MG/0.4 ML Syringe SUBCUT SCH ×2 (01:18→21:08)
[2018-11-28] MEDS ORDERED: Piperacillin/Tazobactam 3.375 GM in Sodium Chloride 0.9% 50 ML IV SCH (06:00)
[2018-11-28] MEDS: Insulin Lispro 100 Unit/ML 3 ML KwikPen SUBCUT SCH ×4 (07:29→21:01)
[2018-11-28] MEDS ORDERED: Non-Formulary Medication 1 Each (Omeprazole [Omeprazole] 20 MG) PO SCH (07:30)
[2018-11-28] MEDS: Pantoprazole 40 MG Tab.CR PO SCH (07:33)
[2018-11-28] MEDS: Lactobacillus Rhamnosus GG (Probiotic) Cap PO SCH ×2 (08:25→21:06)
[2018-11-28] MEDS: Fenofibrate,Micronized 67 MG Cap PO SCH (08:26)
[2018-11-28] MEDS: EMPAGLIFLOZIN 25 MG PO SCH (08:26)
[2018-11-28] MEDS: Metoprolol Tartrate 50 MG Tab PO SCH ×2 (08:27→21:05)
[2018-11-28] MEDS: Gabapentin 300 MG Cap PO SCH ×3 (08:28→21:05)
[2018-11-28] MEDS: Potassium Chloride 20 MEQ in Premix Bag 1 BAG IV SCH ×2 (09:06→11:10)
[2018-11-28] MEDS: Magnesium Sulfate/Water 2 GM in Premix Bag 1 BAG IV SCH ×2 (09:06→15:18)
--- NOTE | 2018-11-28 09:13 | PCM.PN ---
- General Info Date of Service: 11/28/18 Subjective Update: Mr. Rosario is improved significantly since admission, heart rate has normalized and blood pressures remained stable. He is currently afebrile, white blood cell count has improved modestly overnight as has his lactic acid level. He is alert and interactive this morning, sitting in the chair and eating breakfast. Denies significant pain in his right lower leg. - Review of Systems General: Reports: Fever, Weakness, Chills Pulmonary: Reports: No Symptoms Cardiovascular: Reports: No Symptoms Gastrointestinal: Reports: No Symptoms - Patient Data Vitals - Most Recent: Last Vital Signs Temp 98.7 F 11/28/18 08:22 Pulse 95 11/28/18 08:27 Resp 24 H 11/28/18 08:22 BP 136/59 L 11/28/18 08:27 Pulse Ox 95 11/28/18 08:22 Weight - Most Recent: 268 lb 12.813 oz I&O - Last 24 Hours: Intake & Output 11/27/18 11/28/18 11/28/18 22:59 06:59 14:59 Intake Total 3524 Output Total 1650 Balance 1874 Lab Results Last 24 Hours: Laboratory Results - last 24 hr 11/27/18 11/27/18 11/27/18 Range/Units 22:18 22:18 22:20 WBC 17.6 H (4.5-11.0) K/uL RBC 5.41 (4.30-5.90) M/uL Hgb 15.5 H D (12.0-15.0) g/dL Hct 47.3 (40.0-54.0) % MCV 87 (80-98) fL MCH 29 (27-31) pg MCHC 33 (32-36) % Plt Count 241 (150-400) K/uL Neut % (Auto) 93 H (36-66) % Lymph % (Auto) 4 L (24-44) % [place] % (Auto) 3 (2-6) % Eos % (Auto) 0 L (2-4) % Baso % (Auto) 0 (0-1) % Sodium 143 (140-148) mmol/L Potassium 3.5 L (3.6-5.2) mmol/L Chloride 104 (100-108) mmol/L Carbon Dioxide 23 (21-32) mmol/L Anion Gap 19.5 H (5.0-14.0) mmol/L BUN 26 H (7-18) mg/dL Creatinine 1.6 H (0.8-1.3) mg/dL Est Cr Clr Drug Dosing 55.66 mL/min Estimated GFR (MDRD) 44 L (>60) Glucose 191 H (74-106) mg/dL Lactic Acid 4.8 H (0.4-2.0) mmol/L Calcium 9.5 D (8.5-10.1) mg/dL Magnesium (1.8-2.4) mg/dL Total Bilirubin 0.5 (0.2-1.0) mg/dL AST 28 (15-37) U/L ALT 31 (12-78) U/L Alkaline Phosphatase 54 (46-116) U/L Total Protein 7.5 (6.4-8.2) g/dL Albumin 3.3 L (3.4-5.0) g/dL Globulin 4.2 H (2.3-3.5) g/dL Albumin/Globulin Ratio 0.8 L (1.2-2.2) Urine Color Urine Appearance Urine pH (4.5-8.0) Ur Specific [place] (1.008-1.030) Urine Protein (NEGATIVE) mg/dL Urine Glucose (UA) (NEGATIVE) mg/dL Urine Ketones (NEGATIVE) mg/dL Urine Occult Blood (NEGATIVE) Urine Nitrite (NEGAITVE) Urine Bilirubin (NEGATIVE) Urine Urobilinogen (NORMAL) mg/dL Ur Leukocyte Esterase (NEGATIVE) Urine RBC (0-5) Urine WBC (0-5) Ur Epithelial Cells Amorphous Sediment Urine Bacteria Urine Mucus 11/27/18 11/28/18 11/28/18 Range/Units 22:31 04:35 04:35 WBC 15.5 H (4.5-11.0) K/uL RBC 4.93 (4.30-5.90) M/uL Hgb 14.3 (12.0-15.0) g/dL Hct 43.6 (40.0-54.0) % MCV 88 (80-98) fL MCH 29 (27-31) pg MCHC 33 (32-36) % Plt Count 227 (150-400) K/uL Neut % (Auto) 91 H (36-66) % Lymph % (Auto) 5 L (24-44) % [place] % (Auto) 3 (2-6) % Eos % (Auto) 0 L (2-4) % Baso % (Auto) 0 (0-1) % Sodium (140-148) mmol/L Potassium (3.6-5.2) mmol/L Chloride (100-108) mmol/L Carbon Dioxide (21-32) mmol/L Anion Gap (5.0-14.0) mmol/L BUN (7-18) mg/dL Creatinine (0.8-1.3) mg/dL Est Cr Clr Drug Dosing mL/min Estimated GFR (MDRD) (>60) Glucose (74-106) mg/dL Lactic Acid 3.1 H (0.4-2.0) mmol/L Calcium (8.5-10.1) mg/dL Magnesium (1.8-2.4) mg/dL Total Bilirubin (0.2-1.0) mg/dL AST (15-37) U/L ALT (12-78) U/L Alkaline Phosphatase (46-116) U/L Total Protein (6.4-8.2) g/dL Albumin (3.4-5.0) g/dL Globulin (2.3-3.5) g/dL Albumin/Globulin Ratio (1.2-2.2) Urine Color Yellow Urine Appearance Clear Urine pH 8.0 (4.5-8.0) Ur Specific [place] 1.005 L (1.008-1.030) Urine Protein Trace (NEGATIVE) mg/dL Urine Glucose (UA) >1000 H (NEGATIVE) mg/dL Urine Ketones 15 H (NEGATIVE) mg/dL Urine Occult Blood Moderate (NEGATIVE) Urine Nitrite Negative (NEGAITVE) Urine Bilirubin Negative (NEGATIVE) Urine Urobilinogen Normal (NORMAL) mg/dL Ur Leukocyte Esterase Negative (NEGATIVE) Urine RBC 0-5 (0-5) Urine WBC 0-5 (0-5) Ur Epithelial Cells Few Amorphous Sediment Not seen Urine Bacteria Rare Urine Mucus Not seen 11/28/18 Range/Units 04:35 WBC (4.5-11.0) K/uL RBC (4.30-5.90) M/uL Hgb (12.0-15.0) g/dL Hct (40.0-54.0) % MCV (80-98) fL MCH (27-31) pg MCHC (32-36) % Plt Count (150-400) K/uL Neut % (Auto) (36-66) % Lymph % (Auto) (24-44) % [place] % (Auto) (2-6) % Eos % (Auto) (2-4) % Baso % (Auto) (0-1) % Sodium 147 (140-148) mmol/L Potassium 3.4 L (3.6-5.2) mmol/L Chloride 110 H (100-108) mmol/L Carbon Dioxide 23 (21-32) mmol/L Anion Gap 17.4 H (5.0-14.0) mmol/L BUN 24 H (7-18) mg/dL Creatinine 1.4 H (0.8-1.3) mg/dL Est Cr Clr Drug Dosing 63.61 mL/min Estimated GFR (MDRD) 51 L (>60) Glucose 183 H (74-106) mg/dL Lactic Acid (0.4-2.0) mmol/L Calcium 8.9 (8.5-10.1) mg/dL Magnesium 1.6 L D (1.8-2.4) mg/dL Total Bilirubin (0.2-1.0) mg/dL AST (15-37) U/L ALT (12-78) U/L Alkaline Phosphatase (46-116) U/L Total Protein (6.4-8.2) g/dL Albumin (3.4-5.0) g/dL Globulin (2.3-3.5) g/dL Albumin/Globulin Ratio (1.2-2.2) Urine Color Urine Appearance Urine pH (4.5-8.0) Ur Specific [place] (1.008-1.030) Urine Protein (NEGATIVE) mg/dL Urine Glucose (UA) (NEGATIVE) mg/dL Urine Ketones (NEGATIVE) mg/dL Urine Occult Blood (NEGATIVE) Urine Nitrite (NEGAITVE) Urine Bilirubin (NEGATIVE) Urine Urobilinogen (NORMAL) mg/dL Ur Leukocyte Esterase (NEGATIVE) Urine RBC (0-5) Urine WBC (0-5) Ur Epithelial Cells Amorphous Sediment Urine Bacteria Urine Mucus Med Orders - Current: Current Medications Acetaminophen (Tylenol) 650 mg PO Q4H PRN PRN Reason: Pain (Mild 1-3)/fever Acetaminophen (Tylenol) 650 mg RECTAL Q4H PRN PRN Reason: Fever Last Admin: 11/28/18 01:45 Dose: 650 mg Albuterol (Proventil Neb Soln) 2.5 mg NEB Q4H PRN PRN Reason: Shortness Of Breath/wheezing Atorvastatin Calcium (Lipitor) 40 mg PO BEDTIME [facility] Bupropion HCl (Wellbutrin Xl) 300 mg PO BEDTIME [facility] Dextrose (Glutose 15) 15 gm PO ONETIME PRN PRN Reason: Hypoglycemia Dextrose/Water (Dextrose 50% In Water) 50 ml IV ONETIME PRN PRN Reason: Hypoglycemia Enoxaparin Sodium (Lovenox) 40 mg SUBCUT BEDTIME [facility] Last Admin: 11/28/18 01:18 Dose: 40 mg Fenofibrate (Fenofibrate) 134 mg PO DAILY [facility] Last Admin: 11/28/18 08:26 Dose: 134 mg Gabapentin (Neurontin) 600 mg PO TID [facility] Last Admin: 11/28/18 08:28 Dose: 600 mg Haloperidol Lactate (Haldol) 1 mg IVPUSH Q2H PRN PRN Reason: Agitation Last Admin: 11/28/18 02:27 Dose: 1 mg Piperacillin/Tazobactam/ (Dextrose 3.375 gm/ Premix) 50 mls @ 100 mls/hr IV Q6H [facility] Vancomycin HCl 1.75 gm/ Sodium (Chloride) 250 mls @ 166.667 mls/hr IV Q12H [facility] Last Admin: 11/28/18 09:07 Dose: 166.667 mls/hr Potassium Chloride 20 meq/ (Premix) 100 mls @ 50 mls/hr IV Q2H [facility] Stop: 11/28/18 12:59 Last Admin: 11/28/18 09:06 Dose: 50 mls/hr Magnesium Sulfate 2 gm/ Premix 50 mls @ 25 mls/hr IV Q6H [facility] Stop: 11/28/18 17:59 Last Admin: 11/28/18 09:06 Dose: 25 mls/hr Insulin Human Lispro (Humalog) 0 unit SUBCUT QIDACANDBED [facility]; Protocol Last Admin: 11/28/18 07:29 Dose: 2 units Lactobacillus Rhamnosus (Culturelle) 1 cap PO BID [facility] Last Admin: 11/28/18 08:25 Dose: 1 cap Liraglutide (Victoza) 1.8 mg SUBCUT DAILY [facility] Magnesium Oxide (Magnesium Oxide) 400 mg PO BID [facility] Metoprolol Tartrate (Lopressor) 100 mg PO BID [facility] Last Admin: 11/28/18 08:27 Dose: 100 mg (Empagliflozin [ Jardiance] 25 Mg)* Pom* 25 mg PO DAILY [facility] Last Admin: 11/28/18 08:26 Dose: 25 mg Ondansetron HCl (Zofran) 4 mg IV Q4H PRN PRN Reason: Nausea/Vomiting Pantoprazole Sodium (Protonix) 40 mg PO ACBREAKFAST [facility] Last Admin: 11/28/18 07:33 Dose: 40 mg Polyethylene Glycol (Miralax) 17 gm PO DAILY PRN PRN Reason: Constipation Sodium Chloride (Saline Flush) 10 ml FLUSH ASDIRECTED PRN PRN Reason: Keep Vein Open Vancomycin HCl (Vancomycin) 1 gm IV .PHARMACY TO DOSE [facility] Discontinued Medications Acetaminophen (Tylenol) 650 mg RECTAL NOW ONE Stop: 11/27/18 21:53 Last Admin: 11/27/18 22:04 Dose: 650 mg Haloperidol Lactate (Haldol) 2 mg IVPUSH ONETIME ONE Stop: 11/27/18 22:33 Last Admin: 11/27/18 22:36 Dose: 2 mg Sodium Chloride (Normal Saline) 1,000 mls @ 999 mls/hr IV ASDIRECTED [facility] Stop: 11/28/18 00:46 Last Infusion: 11/27/18 22:26 Dose: Infused Sodium Chloride (Normal Saline) 1,000 mls @ 999 mls/hr IV .BOLUS ONE Stop: 11/27/18 23:19 Last Admin: 11/27/18 22:43 Dose: 999 mls/hr Vancomycin HCl 1 gm/ Sodium (Chloride) 250 mls @ 150 mls/hr IV ONETIME ONE Stop: 11/28/18 01:13 Last Admin: 11/27/18 23:43 Dose: 150 mls/hr Piperacillin Sod/Tazobactam (Sod 4.5 gm/ Sodium Chloride) 100 mls @ 100 mls/hr IV ONETIME ONE Stop: 11/28/18 00:34 Last Admin: 11/27/18 23:53 Dose: 100 mls/hr Sodium Chloride (Normal Saline) 1,000 mls @ 999 mls/hr IV .BOLUS ONE Stop: 11/28/18 00:38 Last Admin: 11/27/18 23:41 Dose: 999 mls/hr Lactated Ringer's (Ringers, Lactated) 1,000 mls @ 125 mls/hr IV ASDIRECTED [facility] Last Admin: 11/28/18 00:58 Dose: 125 mls/hr Piperacillin Sod/Tazobactam (Sod 3.375 gm/ Sodium Chloride) 50 mls @ 100 mls/ hr IV Q6H [facility] Last Admin: 11/28/18 05:57 Dose: 100 mls/hr Vancomycin HCl 1.75 gm/ Sodium (Chloride) 250 mls @ 166.667 mls/hr IV Q12H [facility] - Exam Quality Assessment: Urine Catheter, DVT Prophylaxis General: Alert, Oriented, Cooperative, No Acute Distress Lungs: Clear to Auscultation, Normal Respiratory Effort Cardiovascular: Regular Rate, Regular Rhythm, No Murmurs GI/Abdominal Exam: Soft, Non-Tender, No Organomegaly, No Distention Extremities: Increased Warmth, Redness (Right lower leg). No: Leg Pain - Problem List Review Problem List Initiated/Reviewed/Updated: Yes - My Orders Last 24 Hours: My Active Orders 11/27/18 23:54 Resuscitation Status Routine 11/28/18 00:46 Patient Status [ADT] Routine Ambulate [RC] QID Blood Glucose Check, Bedside [RC] QIDACANDBED Cardiac Monitoring [RC] Q6H Communication Order [RC] STAT Diabetes Education [RC] Click to Edit Height and Weight [RC] DAILY Intake and Output [RC] QSHIFT Notify Provider Vital Signs [RC] ASDIRECTED Notify Provider [RC] PRN Oxygen Therapy [RC] PRN Peripheral IV Care [RC] . DIRECTED Pulse Oximetry [RC] CONTINUOUS RT Aerosol Therapy [RC] ASDIRECTED Up With Assistance [RC] ASDIRECTED Up to Chair [RC] QID VTE/DVT Education [RC] Per Unit Routine Vital Signs [RC] Q4H Acetaminophen [Tylenol] 650 mg PO Q4H PRN Albuterol [Proventil Neb Soln] 2.5 mg NEB Q4H PRN Dextrose 50% in Water 50 ml IV ONETIME PRN Dextrose [Glutose 15] 15 gm PO ONETIME PRN Enoxaparin [Lovenox] 40 mg SUBCUT BEDTIME Haloperidol Lactate [Haldol] 1 mg IVPUSH Q2H PRN Ondansetron [Zofran] 4 mg IV Q4H PRN Polyethylene Glycol 3350 [MiraLAX] 17 gm PO DAILY PRN Sodium Chloride 0.9% [Saline Flush] 10 ml FLUSH ASDIRECTED PRN Vancomycin 1 gm IV .PHARMACY TO DOSE Peripheral IV Insertion Adult [OM.PC] Routine 11/28/18 00:59 Acetaminophen [Tylenol] 650 mg RECTAL Q4H PRN 11/28/18 07:00 Insulin Lispro [HumaLOG] See Protocol SUBCUT QIDACANDBED 11/28/18 07:30 Pantoprazole [ProTONIX] 40 mg PO ACBREAKFAST 11/28/18 09:00 Empagliflozin [Jardiance] 25 mg PO DAILY Fenofibrate,Micronized [Fenofibrate] 134 mg PO DAILY Gabapentin [Neurontin] 600 mg PO TID Lactobacillus Rhamnosus GG [Culturelle] 1 cap PO BID Liraglutide [Victoza] 1.8 mg SUBCUT DAILY Magnesium Oxide 400 mg PO BID Metoprolol Tartrate [Lopressor] 100 mg PO BID Potassium Chloride [KCL 20 MEQ in Water 100 ML] 20 meq Premix Bag 1 bag IV Q2H 11/28/18 09:08 Convert IV to Saline Lock [OM.PC] Routine 11/28/18 10:00 Magnesium Sulfate/Water [Magnesium Sulfate 2 GM in Water 50 ML] 2 gm Premix Bag 1 bag IV Q6H Vancomycin 1.75 gm Sodium Chloride 0.9% [Normal Saline] 250 ml IV Q12H 11/28/18 12:00 Piperacillin/Tazobactam/Dext [Zosyn in Dextrose Iso-Osmotic 3.375 GM] 3.375 gm Premix Bag 1 bag IV Q6H 11/28/18 17:00 LACTIC ACID [CHEM] Stat MAGNESIUM [CHEM] Stat POTASSIUM,K [CHEM] Stat 11/28/18 21:00 atorvaSTATin [Lipitor] 40 mg PO BEDTIME buPROPion [Wellbutrin XL] 300 mg PO BEDTIME 11/28/18 Breakfast Consistent Carbohydrate Diet [DIET] 11/29/18 05:00 BASIC METABOLIC PANEL,BMP [CHEM] Timed CBC WITH AUTO DIFF [HEME] Timed MAGNESIUM [CHEM] Timed 11/29/18 07:30 GLUCOSE POC LAB TO COLLECT [POC] QIDACANDBED 11/29/18 11:30 GLUCOSE POC LAB TO COLLECT [POC] QIDACANDBED 11/29/18 16:30 GLUCOSE POC LAB TO COLLECT [POC] QIDACANDBED 11/29/18 21:00 GLUCOSE POC LAB TO COLLECT [POC] QIDACANDBED 11/30/18 07:30 GLUCOSE POC LAB TO COLLECT [POC] QIDACANDBED 11/30/18 09:30 VANCOMYCIN TROUGH [CHEM] Timed 11/30/18 11:30 GLUCOSE POC LAB TO COLLECT [POC] QIDACANDBED 11/30/18 16:30 GLUCOSE POC LAB TO COLLECT [POC] QIDACANDBED 11/30/18 21:00 GLUCOSE POC LAB TO COLLECT [POC] QIDACANDBED 12/01/18 07:30 GLUCOSE POC LAB TO COLLECT [POC] QIDACANDBED 12/01/18 11:30 GLUCOSE POC LAB TO COLLECT [POC] QIDACANDBED 12/01/18 16:30 GLUCOSE POC LAB TO COLLECT [POC] QIDACANDBED 12/01/18 21:00 GLUCOSE POC LAB TO COLLECT [POC] QIDACANDBED 12/02/18 07:30 GLUCOSE POC LAB TO COLLECT [POC] QIDACANDBED 12/02/18 11:30 GLUCOSE POC LAB TO COLLECT [POC] QIDACANDBED 12/02/18 16:30 GLUCOSE POC LAB TO COLLECT [POC] QIDACANDBED 12/02/18 21:00 GLUCOSE POC LAB TO COLLECT [POC] QIDACANDBED - Plan Plan:: ASSESSMENT AND PLAN Right lower extremity cellulitis with sepsis - good improvement since admission , tachycardia has resolved and white blood cell count has improved modestly. Lactic acid level improved but not totally normalized at this time -ICU admission -Antibiotic coverage with vancomycin and Zosyn -Saline lock IV -Serial lactic acid levels -Follow-up cultures -Pain control Acute kidney injury -secondary to sepsis. Creatinine improved from admission, not yet back to baseline -Management as above Insulin-dependent diabetes mellitus -Medium dose sliding scale -Hold metformin with acute kidney injury -Continue Victoza Coronary artery disease - He does have a history of a bypass surgery. -Continue medical management including metoprolol Maintenance issues - - DVT prophylaxis - enoxaparin - GI prophylaxis - PPI - Nutrition - consistent carbohydrate - Becerra catheter - will be placed for strict intake and output monitoring and a critical patient CODE STATUS - full code Admission justification - This patient will be admitted for inpatient services and is medically appropriate meeting medical necessity for inpatient admission as outlined in my documentation. I reasonably expect the patient will require inpatient services that span a period time over 2 midnights. I reasonably expect this patient to be discharged or transferred within 96 hours after admission to the [facility]. Disposition - I would anticipate discharge home after the hospital stay Primary care physician - Malina Garcia
[2018-11-28] MEDS: Magnesium Oxide 400 MG Tab PO SCH ×2 (09:14→21:05)
[2018-11-28] MEDS: Liraglutide (rDNA Origin) 0.6 MG/0.1 ML 3 ML Pen SUBCUT SCH (09:16)
[2018-11-28] MEDS: Piperacillin/Tazobactam/Dext 3.375 GM in Premix Bag 1 BAG IV SCH ×3 (12:54→23:07)
[2018-11-28] MEDS: Acetaminophen 325 MG Tab PO PRN (19:54)
[2018-11-28] MEDS: buPROPion 150 MG Tab.ER PO SCH (21:03)
[2018-11-28] MEDS: atorvaSTATin 20 MG Tab PO SCH (21:06)
[2018-11-29] MEDS: Piperacillin/Tazobactam/Dext 3.375 GM in Premix Bag 1 BAG IV SCH ×3 (05:39→17:58)
[2018-11-29] MEDS: Insulin Lispro 100 Unit/ML 3 ML KwikPen SUBCUT SCH ×4 (07:44→20:56)
[2018-11-29] MEDS: Pantoprazole 40 MG Tab.CR PO SCH (07:52)
[2018-11-29] MEDS: Liraglutide (rDNA Origin) 0.6 MG/0.1 ML 3 ML Pen SUBCUT SCH (08:52)
[2018-11-29] MEDS: Lactobacillus Rhamnosus GG (Probiotic) Cap PO SCH ×2 (08:52→20:50)
[2018-11-29] MEDS: EMPAGLIFLOZIN 25 MG PO SCH (08:54)
[2018-11-29] MEDS: Metoprolol Tartrate 50 MG Tab PO SCH ×2 (08:55→20:50)
[2018-11-29] MEDS: Fenofibrate,Micronized 67 MG Cap PO SCH (08:55)
[2018-11-29] MEDS: Magnesium Oxide 400 MG Tab PO SCH ×2 (08:55→20:50)
[2018-11-29] MEDS: Gabapentin 300 MG Cap PO SCH ×3 (08:56→20:50)
--- NOTE | 2018-11-29 11:58 | PCM.PN ---
- General Info Date of Service: 11/29/18 Subjective Update: Mr. Rosario is been stable since yesterday, he did have a mild temperature elevation last night, but none since then. Continues to experience mild pain in his right lower leg, erythema appears to be improved. Functional Status: Reports: Pain Controlled, Tolerating Diet, Ambulating, Urinating - Review of Systems General: Reports: Fever. Denies: Weakness, Chills Pulmonary: Reports: No Symptoms Cardiovascular: Reports: No Symptoms Gastrointestinal: Reports: No Symptoms Skin: Reports: Other (Less erythema and tenderness right lower leg) - Patient Data Vitals - Most Recent: Last Vital Signs Temp 97.9 F 11/29/18 10:58 Pulse 77 11/29/18 10:58 Resp 16 11/29/18 10:58 BP 114/61 11/29/18 10:58 Pulse Ox 93 L 11/29/18 10:58 Weight - Most Recent: 268 lb 12.813 oz I&O - Last 24 Hours: Intake & Output 11/28/18 11/29/18 11/29/18 22:59 06:59 14:59 Intake Total 650 750 500 Output Total 3225 1550 1000 Balance -2575 -800 -500 Lab Results Last 24 Hours: Laboratory Results - last 24 hr 11/28/18 11/28/18 11/29/18 Range/Units 17:00 17:00 04:50 WBC 10.6 (4.5-11.0) K/uL RBC 4.53 (4.30-5.90) M/uL Hgb 13.0 (12.0-15.0) g/dL Hct 42.2 (40.0-54.0) % MCV 93 (80-98) fL MCH 29 (27-31) pg MCHC 31 L (32-36) % Plt Count 190 (150-400) K/uL Neut % (Auto) 86 H (36-66) % Lymph % (Auto) 9 L (24-44) % [place] % (Auto) 4 (2-6) % Eos % (Auto) 0 L (2-4) % Baso % (Auto) 0 (0-1) % Sodium (140-148) mmol/L Potassium 4.4 (3.6-5.2) mmol/L Chloride (100-108) mmol/L Carbon Dioxide (21-32) mmol/L Anion Gap (5.0-14.0) mmol/L BUN (7-18) mg/dL Creatinine (0.8-1.3) mg/dL Est Cr Clr Drug Dosing mL/min Estimated GFR (MDRD) (>60) Glucose (74-106) mg/dL Lactic Acid 2.0 (0.4-2.0) mmol/L Calcium (8.5-10.1) mg/dL Magnesium 2.9 H (1.8-2.4) mg/dL 11/29/18 Range/Units 04:50 WBC (4.5-11.0) K/uL RBC (4.30-5.90) M/uL Hgb (12.0-15.0) g/dL Hct (40.0-54.0) % MCV (80-98) fL MCH (27-31) pg MCHC (32-36) % Plt Count (150-400) K/uL Neut % (Auto) (36-66) % Lymph % (Auto) (24-44) % [place] % (Auto) (2-6) % Eos % (Auto) (2-4) % Baso % (Auto) (0-1) % Sodium 143 (140-148) mmol/L Potassium 4.3 (3.6-5.2) mmol/L Chloride 107 (100-108) mmol/L Carbon Dioxide 30 (21-32) mmol/L Anion Gap 6.2 (5.0-14.0) mmol/L BUN 24 H (7-18) mg/dL Creatinine 1.3 (0.8-1.3) mg/dL Est Cr Clr Drug Dosing 68.53 mL/min Estimated GFR (MDRD) 56 L (>60) Glucose 147 H (74-106) mg/dL Lactic Acid (0.4-2.0) mmol/L Calcium 8.7 (8.5-10.1) mg/dL Magnesium 2.7 H (1.8-2.4) mg/dL Julio Cesar Results Last 24 Hours: Microbiology 11/27/18 22:23 Urine Culture - Preliminary Urine, Catheterized NO GROWTH AFTER 1 DAY 11/27/18 04:35 Aerobic Blood Culture - Preliminary Blood - Arm, Left NO GROWTH AFTER 1 DAY Anaerobic Blood Culture - Preliminary NO GROWTH AFTER 1 DAY 11/27/18 22:18 Aerobic Blood Culture - Preliminary Blood NO GROWTH AFTER 1 DAY Anaerobic Blood Culture - Preliminary NO GROWTH AFTER 1 DAY Med Orders - Current: Current Medications Acetaminophen (Tylenol) 650 mg PO Q4H PRN PRN Reason: Pain (Mild 1-3)/fever Last Admin: 11/28/18 19:54 Dose: 650 mg Acetaminophen (Tylenol) 650 mg RECTAL Q4H PRN PRN Reason: Fever Last Admin: 11/28/18 01:45 Dose: 650 mg Albuterol (Proventil Neb Soln) 2.5 mg NEB Q4H PRN PRN Reason: Shortness Of Breath/wheezing Atorvastatin Calcium (Lipitor) 40 mg PO BEDTIME [facility] Last Admin: 11/28/18 21:06 Dose: 40 mg Bupropion HCl (Wellbutrin Xl) 300 mg PO BEDTIME [facility] Last Admin: 11/28/18 21:03 Dose: 300 mg Dextrose (Glutose 15) 15 gm PO ONETIME PRN PRN Reason: Hypoglycemia Dextrose/Water (Dextrose 50% In Water) 50 ml IV ONETIME PRN PRN Reason: Hypoglycemia Enoxaparin Sodium (Lovenox) 40 mg SUBCUT BEDTIME [facility] Last Admin: 11/28/18 21:08 Dose: 40 mg Fenofibrate (Fenofibrate) 134 mg PO DAILY [facility] Last Admin: 11/29/18 08:55 Dose: 134 mg Gabapentin (Neurontin) 600 mg PO TID [facility] Last Admin: 11/29/18 08:56 Dose: 600 mg Haloperidol Lactate (Haldol) 1 mg IVPUSH Q2H PRN PRN Reason: Agitation Last Admin: 11/28/18 02:27 Dose: 1 mg Piperacillin/Tazobactam/ (Dextrose 3.375 gm/ Premix) 50 mls @ 100 mls/hr IV Q6H [facility] Last Admin: 11/29/18 11:33 Dose: 100 mls/hr Vancomycin HCl 1.75 gm/ Sodium (Chloride) 250 mls @ 166.667 mls/hr IV Q12H [facility] Last Admin: 11/29/18 09:21 Dose: 166.667 mls/hr Insulin Human Lispro (Humalog) 0 unit SUBCUT QIDACANDBED [facility]; Protocol Last Admin: 11/29/18 11:34 Dose: Not Given Lactobacillus Rhamnosus (Culturelle) 1 cap PO BID [facility] Last Admin: 11/29/18 08:52 Dose: 1 cap Liraglutide (Victoza) 1.8 mg SUBCUT DAILY [facility] Last Admin: 11/29/18 08:52 Dose: 1.8 mg Magnesium Oxide (Magnesium Oxide) 400 mg PO BID [facility] Last Admin: 11/29/18 08:55 Dose: 400 mg Metoprolol Tartrate (Lopressor) 100 mg PO BID [facility] Last Admin: 11/29/18 08:55 Dose: 100 mg (Empagliflozin [ Jardiance] 25 Mg)* Pom* 25 mg PO DAILY [facility] Last Admin: 11/29/18 08:54 Dose: 25 mg Ondansetron HCl (Zofran) 4 mg IV Q4H PRN PRN Reason: Nausea/Vomiting Pantoprazole Sodium (Protonix) 40 mg PO ACBREAKFAST [facility] Last Admin: 11/29/18 07:52 Dose: 40 mg Polyethylene Glycol (Miralax) 17 gm PO DAILY PRN PRN Reason: Constipation Sodium Chloride (Saline Flush) 10 ml FLUSH ASDIRECTED PRN PRN Reason: Keep Vein Open Discontinued Medications Acetaminophen (Tylenol) 650 mg RECTAL NOW ONE Stop: 11/27/18 21:53 Last Admin: 11/27/18 22:04 Dose: 650 mg Haloperidol Lactate (Haldol) 2 mg IVPUSH ONETIME ONE Stop: 11/27/18 22:33 Last Admin: 11/27/18 22:36 Dose: 2 mg Sodium Chloride (Normal Saline) 1,000 mls @ 999 mls/hr IV ASDIRECTED [facility] Stop: 11/28/18 00:46 Last Infusion: 11/27/18 22:26 Dose: Infused Sodium Chloride (Normal Saline) 1,000 mls @ 999 mls/hr IV .BOLUS ONE Stop: 11/27/18 23:19 Last Admin: 11/27/18 22:43 Dose: 999 mls/hr Vancomycin HCl 1 gm/ Sodium (Chloride) 250 mls @ 150 mls/hr IV ONETIME ONE Stop: 11/28/18 01:13 Last Admin: 11/27/18 23:43 Dose: 150 mls/hr Piperacillin Sod/Tazobactam (Sod 4.5 gm/ Sodium Chloride) 100 mls @ 100 mls/hr IV ONETIME ONE Stop: 11/28/18 00:34 Last Admin: 11/27/18 23:53 Dose: 100 mls/hr Sodium Chloride (Normal Saline) 1,000 mls @ 999 mls/hr IV .BOLUS ONE Stop: 11/28/18 00:38 Last Admin: 11/27/18 23:41 Dose: 999 mls/hr Lactated Ringer's (Ringers, Lactated) 1,000 mls @ 125 mls/hr IV ASDIRECTED [facility] Last Admin: 11/28/18 00:58 Dose: 125 mls/hr Piperacillin Sod/Tazobactam (Sod 3.375 gm/ Sodium Chloride) 50 mls @ 100 mls/ hr IV Q6H [facility] Last Admin: 11/28/18 05:57 Dose: 100 mls/hr Vancomycin HCl 1.75 gm/ Sodium (Chloride) 250 mls @ 166.667 mls/hr IV Q12H [facility] Potassium Chloride 20 meq/ (Premix) 100 mls @ 50 mls/hr IV Q2H [facility] Stop: 11/28/18 12:59 Last Admin: 11/28/18 11:10 Dose: 50 mls/hr Magnesium Sulfate 2 gm/ Premix 50 mls @ 25 mls/hr IV Q6H [facility] Stop: 11/28/18 17:59 Last Admin: 11/28/18 15:18 Dose: 25 mls/hr Vancomycin HCl (Vancomycin) 1 gm IV .PHARMACY TO DOSE GONZALO - Exam Quality Assessment: Supplemental Oxygen, Urine Catheter, DVT Prophylaxis General: Alert, Oriented, Cooperative, No Acute Distress Lungs: Clear to Auscultation, Normal Respiratory Effort Cardiovascular: Regular Rate, Regular Rhythm, No Murmurs GI/Abdominal Exam: Soft, Non-Tender, No Organomegaly, No Distention Extremities: Increased Warmth, Redness - Problem List Review Problem List Initiated/Reviewed/Updated: Yes - My Orders Last 24 Hours: My Active Orders 11/28/18 12:00 Piperacillin/Tazobactam/Dext [Zosyn in Dextrose Iso-Osmotic 3.375 GM] 3.375 gm Premix Bag 1 bag IV Q6H 11/28/18 21:00 atorvaSTATin [Lipitor] 40 mg PO BEDTIME buPROPion [Wellbutrin XL] 300 mg PO BEDTIME 11/29/18 10:14 Accu Check [Blood Glucose Check, Bedside] [RC] QIDACANDBED 11/29/18 10:15 Accu Check [Blood Glucose Check, Bedside] [RC] QIDACANDBED 11/29/18 11:43 Patient Status [ADT] Routine 11/29/18 11:45 Discontinue Telemetry Monitoring [Cardiac Monitoring Discontinue] [RC] Click to Edit Remove Becerra Catheter [Urinary Catheter Removal] [RC] Per Unit Routine 11/29/18 16:30 GLUCOSE POC LAB TO COLLECT [POC] QIDACANDBED 11/29/18 21:00 GLUCOSE POC LAB TO COLLECT [POC] QIDACANDBED 11/30/18 07:30 GLUCOSE POC LAB TO COLLECT [POC] QIDACANDBED 11/30/18 09:30 VANCOMYCIN TROUGH [CHEM] Timed 11/30/18 11:30 GLUCOSE POC LAB TO COLLECT [POC] QIDACANDBED 11/30/18 16:30 GLUCOSE POC LAB TO COLLECT [POC] QIDACANDBED 11/30/18 21:00 GLUCOSE POC LAB TO COLLECT [POC] QIDACANDBED 12/01/18 07:30 GLUCOSE POC LAB TO COLLECT [POC] QIDACANDBED 12/01/18 11:30 GLUCOSE POC LAB TO COLLECT [POC] QIDACANDBED 12/01/18 16:30 GLUCOSE POC LAB TO COLLECT [POC] QIDACANDBED 12/01/18 21:00 GLUCOSE POC LAB TO COLLECT [POC] QIDACANDBED 12/02/18 07:30 GLUCOSE POC LAB TO COLLECT [POC] QIDACANDBED 12/02/18 11:30 GLUCOSE POC LAB TO COLLECT [POC] QIDACANDBED 12/02/18 16:30 GLUCOSE POC LAB TO COLLECT [POC] QIDACANDBED 12/02/18 21:00 GLUCOSE POC LAB TO COLLECT [POC] QIDACANDBED - Plan Plan:: ASSESSMENT AND PLAN Right lower extremity cellulitis with sepsis - good improvement since admission , tachycardia has resolved and white blood cell count has improved modestly. Lactic acid level normalized, only mild temperature elevation last night. Cultures remain negative. -Antibiotic coverage with vancomycin and Zosyn -Saline lock IV -Follow-up cultures -Pain control Acute kidney injury -secondary to sepsis. Creatinine now within normal range -Management as above Insulin-dependent diabetes mellitus -Medium dose sliding scale -Resume metformin -Continue Victoza -4 times a day glucometers Coronary artery disease - He does have a history of a bypass surgery. -Continue medical management including metoprolol Maintenance issues - - DVT prophylaxis - enoxaparin - GI prophylaxis - PPI - Nutrition - consistent carbohydrate - Becerra catheter - will be placed for strict intake and output monitoring and a critical patient CODE STATUS - full code Admission justification - This patient will be admitted for inpatient services and is medically appropriate meeting medical necessity for inpatient admission as outlined in my documentation. I reasonably expect the patient will require inpatient services that span a period time over 2 midnights. I reasonably expect this patient to be discharged or transferred within 96 hours after admission to the [facility]. Disposition - I would anticipate discharge home after the hospital stay Primary care physician - Malina Garcia
[2018-11-29] MEDS: metFORMIN 500 MG Tab PO SCH (17:10)
[2018-11-29] MEDS: buPROPion 150 MG Tab.ER PO SCH (20:49)
[2018-11-29] MEDS: Enoxaparin 40 MG/0.4 ML Syringe SUBCUT SCH (20:50)
[2018-11-29] MEDS: atorvaSTATin 20 MG Tab PO SCH (20:50)
[2018-11-30] MEDS: Piperacillin/Tazobactam/Dext 3.375 GM in Premix Bag 1 BAG IV SCH ×4 (00:38→17:12)
[2018-11-30] MEDS: Insulin Lispro 100 Unit/ML 3 ML KwikPen SUBCUT SCH ×4 (07:30→21:33)
[2018-11-30] MEDS: Pantoprazole 40 MG Tab.CR PO SCH (07:31)
[2018-11-30] MEDS: metFORMIN 500 MG Tab PO SCH ×2 (07:31→17:08)
[2018-11-30] MEDS: EMPAGLIFLOZIN 25 MG PO SCH (08:52)
[2018-11-30] MEDS: Lactobacillus Rhamnosus GG (Probiotic) Cap PO SCH ×2 (08:52→20:06)
[2018-11-30] MEDS: Gabapentin 300 MG Cap PO SCH ×3 (08:52→20:06)
[2018-11-30] MEDS: Fenofibrate,Micronized 67 MG Cap PO SCH (08:52)
[2018-11-30] MEDS: Magnesium Oxide 400 MG Tab PO SCH ×2 (08:52→20:06)
[2018-11-30] MEDS: Metoprolol Tartrate 50 MG Tab PO SCH ×2 (08:52→20:06)
[2018-11-30] MEDS: Liraglutide (rDNA Origin) 0.6 MG/0.1 ML 3 ML Pen SUBCUT SCH (08:53)
--- NOTE | 2018-11-30 10:38 | PCM.PN ---
- General Info Date of Service: 11/30/18 Subjective Update: Mr. Rosario has done well since yesterday, no significant temperature elevations and he has remained within stable. Continues to experience modest swelling and pain in his right lower leg. Mild persistent erythema over the anterior aspect of the lower leg. Functional Status: Reports: Pain Controlled, Tolerating Diet, Ambulating, Urinating - Review of Systems General: Reports: Weakness. Denies: Fever, Chills Pulmonary: Reports: No Symptoms Cardiovascular: Reports: No Symptoms Gastrointestinal: Reports: No Symptoms - Patient Data Vitals - Most Recent: Last Vital Signs Temp 98.0 F 11/30/18 10:23 Pulse 69 11/30/18 10:23 Resp 16 11/30/18 10:23 BP 127/62 11/30/18 10:23 Pulse Ox 94 L 11/30/18 10:23 Weight - Most Recent: 268 lb 12.813 oz I&O - Last 24 Hours: Intake & Output 11/29/18 11/30/18 11/30/18 22:59 06:59 14:59 Intake Total 50 450 860 Output Total 5 Balance 50 445 860 Lab Results Last 24 Hours: Laboratory Results - last 24 hr 11/30/18 Range/Units 09:30 Vancomycin Trough 12.2 (10.0-20.0) ug/mL Julio Cesar Results Last 24 Hours: Microbiology 11/27/18 22:23 Urine Culture - Final Urine, Catheterized NO GROWTH AFTER 2 DAYS 11/27/18 04:35 Aerobic Blood Culture - Preliminary Blood - Arm, Left NO GROWTH AFTER 2 DAYS Anaerobic Blood Culture - Preliminary NO GROWTH AFTER 2 DAYS 11/27/18 22:18 Aerobic Blood Culture - Preliminary Blood NO GROWTH AFTER 2 DAYS Anaerobic Blood Culture - Preliminary NO GROWTH AFTER 2 DAYS Med Orders - Current: Current Medications Acetaminophen (Tylenol) 650 mg PO Q4H PRN PRN Reason: Pain (Mild 1-3)/fever Last Admin: 11/28/18 19:54 Dose: 650 mg Acetaminophen (Tylenol) 650 mg RECTAL Q4H PRN PRN Reason: Fever Last Admin: 11/28/18 01:45 Dose: 650 mg Albuterol (Proventil Neb Soln) 2.5 mg NEB Q4H PRN PRN Reason: Shortness Of Breath/wheezing Atorvastatin Calcium (Lipitor) 40 mg PO BEDTIME GON[facility]ALO Last Admin: 11/29/18 20:50 Dose: 40 mg Bupropion HCl (Wellbutrin Xl) 300 mg PO BEDTIME [facility] Last Admin: 11/29/18 20:49 Dose: 300 mg Dextrose (Glutose 15) 15 gm PO ONETIME PRN PRN Reason: Hypoglycemia Dextrose/Water (Dextrose 50% In Water) 50 ml IV ONETIME PRN PRN Reason: Hypoglycemia Enoxaparin Sodium (Lovenox) 40 mg SUBCUT BEDTIME [facility] Last Admin: 11/29/18 20:50 Dose: 40 mg Fenofibrate (Fenofibrate) 134 mg PO DAILY [facility] Last Admin: 11/30/18 08:52 Dose: 134 mg Gabapentin (Neurontin) 600 mg PO TID [facility] Last Admin: 11/30/18 08:52 Dose: 600 mg Haloperidol Lactate (Haldol) 1 mg IVPUSH Q2H PRN PRN Reason: Agitation Last Admin: 11/28/18 02:27 Dose: 1 mg Piperacillin/Tazobactam/ (Dextrose 3.375 gm/ Premix) 50 mls @ 100 mls/hr IV Q6H [facility] Last Admin: 11/30/18 05:06 Dose: 100 mls/hr Vancomycin HCl 2 gm/ Sodium (Chloride) 500 mls @ 333.333 mls/hr IV Q12H [facility] Insulin Human Lispro (Humalog) 0 unit SUBCUT QIDACANDBED [facility]; Protocol Last Admin: 11/30/18 07:30 Dose: Not Given Lactobacillus Rhamnosus (Culturelle) 1 cap PO BID [facility] Last Admin: 11/30/18 08:52 Dose: 1 cap Liraglutide (Victoza) 1.8 mg SUBCUT DAILY [facility] Last Admin: 11/30/18 08:53 Dose: 1.8 mg Magnesium Oxide (Magnesium Oxide) 400 mg PO BID [facility] Last Admin: 11/30/18 08:52 Dose: 400 mg Metformin HCl (Glucophage) 1,000 mg PO BIDMEALS [facility] Last Admin: 11/30/18 07:31 Dose: 1,000 mg Metoprolol Tartrate (Lopressor) 100 mg PO BID [facility] Last Admin: 11/30/18 08:52 Dose: 100 mg (Empagliflozin [ Jardiance] 25 Mg)* Pom* 25 mg PO DAILY [facility] Last Admin: 11/30/18 08:52 Dose: 25 mg Ondansetron HCl (Zofran) 4 mg IV Q4H PRN PRN Reason: Nausea/Vomiting Pantoprazole Sodium (Protonix) 40 mg PO ACBREAKFAST [facility] Last Admin: 11/30/18 07:31 Dose: 40 mg Polyethylene Glycol (Miralax) 17 gm PO DAILY PRN PRN Reason: Constipation Sodium Chloride (Saline Flush) 10 ml FLUSH ASDIRECTED PRN PRN Reason: Keep Vein Open Discontinued Medications Acetaminophen (Tylenol) 650 mg RECTAL NOW ONE Stop: 11/27/18 21:53 Last Admin: 11/27/18 22:04 Dose: 650 mg Haloperidol Lactate (Haldol) 2 mg IVPUSH ONETIME ONE Stop: 11/27/18 22:33 Last Admin: 11/27/18 22:36 Dose: 2 mg Sodium Chloride (Normal Saline) 1,000 mls @ 999 mls/hr IV ASDIRECTED [facility] Stop: 11/28/18 00:46 Last Infusion: 11/27/18 22:26 Dose: Infused Sodium Chloride (Normal Saline) 1,000 mls @ 999 mls/hr IV .BOLUS ONE Stop: 11/27/18 23:19 Last Admin: 11/27/18 22:43 Dose: 999 mls/hr Vancomycin HCl 1 gm/ Sodium (Chloride) 250 mls @ 150 mls/hr IV ONETIME ONE Stop: 11/28/18 01:13 Last Admin: 11/27/18 23:43 Dose: 150 mls/hr Piperacillin Sod/Tazobactam (Sod 4.5 gm/ Sodium Chloride) 100 mls @ 100 mls/hr IV ONETIME ONE Stop: 11/28/18 00:34 Last Admin: 11/27/18 23:53 Dose: 100 mls/hr Sodium Chloride (Normal Saline) 1,000 mls @ 999 mls/hr IV .BOLUS ONE Stop: 11/28/18 00:38 Last Admin: 11/27/18 23:41 Dose: 999 mls/hr Lactated Ringer's (Ringers, Lactated) 1,000 mls @ 125 mls/hr IV ASDIRECTED [facility] Last Admin: 11/28/18 00:58 Dose: 125 mls/hr Piperacillin Sod/Tazobactam (Sod 3.375 gm/ Sodium Chloride) 50 mls @ 100 mls/ hr IV Q6H [facility] Last Admin: 11/28/18 05:57 Dose: 100 mls/hr Vancomycin HCl 1.75 gm/ Sodium (Chloride) 250 mls @ 166.667 mls/hr IV Q12H [facility] Vancomycin HCl 1.75 gm/ Sodium (Chloride) 250 mls @ 166.667 mls/hr IV Q12H [facility] Last Admin: 11/29/18 22:49 Dose: 166.667 mls/hr Potassium Chloride 20 meq/ (Premix) 100 mls @ 50 mls/hr IV Q2H [facility] Stop: 11/28/18 12:59 Last Admin: 11/28/18 11:10 Dose: 50 mls/hr Magnesium Sulfate 2 gm/ Premix 50 mls @ 25 mls/hr IV Q6H [facility] Stop: 11/28/18 17:59 Last Admin: 11/28/18 15:18 Dose: 25 mls/hr Vancomycin HCl (Vancomycin) 1 gm IV .PHARMACY TO DOSE GONZALO - Exam Quality Assessment: Supplemental Oxygen, DVT Prophylaxis General: Alert, Oriented, Cooperative, Mild Distress Lungs: Clear to Auscultation, Normal Respiratory Effort Cardiovascular: Regular Rate, Regular Rhythm, No Murmurs GI/Abdominal Exam: Soft, Non-Tender, No Organomegaly, No Distention Extremities: Pedal Edema, Increased Warmth, Redness - Problem List Review Problem List Initiated/Reviewed/Updated: Yes - My Orders Last 24 Hours: My Active Orders 11/29/18 10:14 Accu Check [Blood Glucose Check, Bedside] [RC] QIDACANDBED 11/29/18 10:15 Accu Check [Blood Glucose Check, Bedside] [RC] QIDACANDBED 11/29/18 11:43 Patient Status [ADT] Routine 11/29/18 11:45 Discontinue Telemetry Monitoring [Cardiac Monitoring Discontinue] [RC] Click to Edit Remove Becerra Catheter [Urinary Catheter Removal] [RC] Per Unit Routine 11/29/18 17:00 metFORMIN [Glucophage] 1,000 mg PO BIDMEALS 11/30/18 11:00 Vancomycin 2 gm Sodium Chloride 0.9% [Normal Saline] 500 ml IV Q12H 11/30/18 11:30 GLUCOSE POC LAB TO COLLECT [POC] QIDACANDBED 11/30/18 16:30 GLUCOSE POC LAB TO COLLECT [POC] QIDACANDBED 11/30/18 21:00 GLUCOSE POC LAB TO COLLECT [POC] QIDACANDBED 12/01/18 07:30 GLUCOSE POC LAB TO COLLECT [POC] QIDACANDBED 12/01/18 11:30 GLUCOSE POC LAB TO COLLECT [POC] QIDACANDBED 12/01/18 16:30 GLUCOSE POC LAB TO COLLECT [POC] QIDACANDBED 12/01/18 21:00 GLUCOSE POC LAB TO COLLECT [POC] QIDACANDBED 12/02/18 07:30 GLUCOSE POC LAB TO COLLECT [POC] QIDACANDBED 12/02/18 11:30 GLUCOSE POC LAB TO COLLECT [POC] QIDACANDBED 12/02/18 16:30 GLUCOSE POC LAB TO COLLECT [POC] QIDACANDBED 12/02/18 21:00 GLUCOSE POC LAB TO COLLECT [POC] QIDACANDBED - Plan Plan:: ASSESSMENT AND PLAN Right lower extremity cellulitis with sepsis - good improvement since admission , tachycardia has resolved, white blood cell count within normal range. I'll persistent erythema and increased warmth over the anterior aspect of the right lower leg -Antibiotic coverage with vancomycin and Zosyn -Saline lock IV -Follow-up cultures -Pain control Acute kidney injury -secondary to sepsis. Creatinine now within normal range -Management as above Insulin-dependent diabetes mellitus -Medium dose sliding scale -Resume metformin -Continue Victoza -4 times a day glucometers Coronary artery disease - He does have a history of a bypass surgery. -Continue medical management including metoprolol Maintenance issues - - DVT prophylaxis - enoxaparin - GI prophylaxis - PPI - Nutrition - consistent carbohydrate - Becerra catheter - will be placed for strict intake and output monitoring and a critical patient CODE STATUS - full code Admission justification - This patient will be admitted for inpatient services and is medically appropriate meeting medical necessity for inpatient admission as outlined in my documentation. I reasonably expect the patient will require inpatient services that span a period time over 2 midnights. I reasonably expect this patient to be discharged or transferred within 96 hours after admission to the [facility]. Disposition - I would anticipate discharge home after the hospital stay Primary care physician - Malina Garcia
[2018-11-30] MEDS: Vancomycin 2 GM in Sodium Chloride 0.9% 500 ML IV SCH ×2 (11:24→22:16)
[2018-11-30] MEDS: Acetaminophen 325 MG Tab PO PRN (15:30)
[2018-11-30] MEDS: Enoxaparin 40 MG/0.4 ML Syringe SUBCUT SCH (20:05)
[2018-11-30] MEDS: atorvaSTATin 20 MG Tab PO SCH (20:05)
[2018-11-30] MEDS: buPROPion 150 MG Tab.ER PO SCH (20:06)
[2018-12-01] MEDS: Piperacillin/Tazobactam/Dext 3.375 GM in Premix Bag 1 BAG IV SCH ×3 (00:34→13:06)
[2018-12-01] MEDS: Pantoprazole 40 MG Tab.CR PO SCH (07:38)
[2018-12-01] MEDS: metFORMIN 500 MG Tab PO SCH (07:39)
[2018-12-01] MEDS: Insulin Lispro 100 Unit/ML 3 ML KwikPen SUBCUT SCH ×2 (07:39→13:06)
[2018-12-01 08:11] VITALS: BP 137/60
[2018-12-01] MEDS: Metoprolol Tartrate 50 MG Tab PO SCH (10:00)
[2018-12-01] MEDS: Lactobacillus Rhamnosus GG (Probiotic) Cap PO SCH (10:01)
[2018-12-01] MEDS: Fenofibrate,Micronized 67 MG Cap PO SCH (10:02)
[2018-12-01] MEDS: Gabapentin 300 MG Cap PO SCH (10:02)
[2018-12-01] MEDS: EMPAGLIFLOZIN 25 MG PO SCH (10:03)
[2018-12-01] MEDS: Magnesium Oxide 400 MG Tab PO SCH (10:03)
[2018-12-01] MEDS: Liraglutide (rDNA Origin) 0.6 MG/0.1 ML 3 ML Pen SUBCUT SCH (10:04)
--- NOTE | 2018-12-01 10:54 | PCM.DCSUM1 ---
Discharge Summary - Hospital Course Brief History: Mr. Rosario is a 63-year-old gentleman who was admitted through the emergency department with decreased level of consciousness, fever, and sepsis secondary to cellulitis of the right lower leg. 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 insulin use: with air launch weapons technician use Diabetes mellitus complication status: with circulatory complication Diabetes mellitus complication detail: with other circulatory complications Qualified Code(s): E11.59 - Type 2 diabetes mellitus with other circulatory complications; Z79.4 - custodial (current) use of insulin; Z79.4 - merchant mariner (current) use of insulin; Z79.4 - merchant mariner (current) use of insulin; Z79.4 - custodial (current) use of insulin (3) Essential hypertension SNOMED Code(s): 10141796 ICD Code: I10 - ESSENTIAL (PRIMARY) HYPERTENSION Status: Chronic Current Visit: No (4) CKD (chronic kidney disease) stage 3, GFR 30-59 ml/min SNOMED Code(s): 831711832 ICD Code: N18.3 - CHRONIC KIDNEY DISEASE, STAGE 3 (MODERATE) Status: Acute Current Visit: Yes - Patient Summary/Data Hospital Course: Mr. Rosario is a 63-year-old gentleman who was admitted through the emergency department with sepsis and decreased level of consciousness secondary to cellulitis of the right lower extremity. He was hospitalized at this facility last June with similar symptoms and findings except the cellulitis at that time was in the left leg. Because of his current decreased level of consciousness and agitation is unable to provide significant history concerning recent symptoms or review of systems. History obtained in the emergency department from a friend that lives with him was that he was last known to be normal at approximately 10 PM last night. When his friend arrived home this evening she found him to be confused and agitated. He was brought into the emergency department for further evaluation. On presentation of the emergency department he was found to be tachycardic, blood pressure and oxygenation were adequate. Physical examination showed erythema of the right lower leg with increased swelling and warmth. Urine is clear showing no evidence of infection and there is no evidence of significant infiltrate on chest x-ray. White blood cell count is elevated as is his lactic acid level. He has been given vigorous IV fluid replacement in the emergency department per sepsis protocol and started on IV antibiotic therapy with vancomycin and Zosyn. Blood cultures were obtained in the emergency department prior to initiation of antibiotic therapy. On admission IV fluids were continued in addition to vancomycin and Zosyn. Over the next few days of hospitalization white blood cell count normalized as did the lactic acid level. IV fluids were discontinued after he was noted to have good oral intake of liquids and solids. Decreased level of consciousness resolved within a few hours after admission. 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 I encouraged him to remain hospitalized least an additional 24 hours for further IV antibiotic therapy. He refused further admission and requested that he be discharged home on oral antibiotic therapy. Blood cultures obtained at the time of admission remained negative throughout hospitalization. He will be discharged home on Augmentin 875 one twice daily for an additional 7 days. He will return immediately to the emergency department if he notes increase in the erythema or recurrent fevers. Activity will be as tolerated and he will remain on a diabetic low sodium diet. He was noted to be hypoxic throughout hospital stay and required ongoing supplemental oxygen. He does have supplemental oxygen available at home and I have encouraged him to use this continuously. Follow-up appointment will be scheduled with his primary care provider within 3-4 days. 80s was monitored throughout hospital stay, initially metformin was held because of the lactic acidosis. Blood sugars remained overall under fairly good control during hospitalization. He will be discharged home on his usual diabetic medication. - Patient Instructions Diet: Low Sodium, Diabetic Diet Activity: As Tolerated Other/Special Instructions: Please schedule follow-up appointment with primary care provider within 3-4 days. - Discharge Plan *PRESCRIPTION DRUG MONITORING PROGRAM REVIEWED*: Not Applicable *COPY OF PRESCRIPTION DRUG MONITORING REPORT IN PATIENT TOO: Not Applicable Prescriptions/Med Rec: Amoxicillin/Potassium Clav [Augmentin 875-125 Tablet] 1 each PO BID #14 tablet Lactobacillus Rhamnosus GG [Culturelle] 1 cap PO BID #60 cap Home Medications: Home Meds Cholecalciferol (Vitamin D3) [Vitamin D3] 2,000 unit PO DAILY 06/28/13 [History] Fenofibrate,Micronized [Fenofibrate] 134 mg PO DAILY 06/28/13 [History] Furosemide [Lasix] 80 mg PO BID 06/28/13 [History] Gabapentin [Neurontin] 600 mg PO TID 06/28/13 [History] Omeprazole 20 mg PO BIDAC 06/28/13 [History] buPROPion [buPROPion XL] 300 mg PO BEDTIME 06/28/13 [History] atorvaSTATin [Lipitor] 40 mg PO BEDTIME 02/10/16 [History] metFORMIN HCl [Metformin HCl] 1,000 mg PO BID 08/02/17 [History] Empagliflozin [Jardiance] 25 mg PO DAILY 07/07/18 [History] Liraglutide [Victoza] 1.8 mg SUBCUT DAILY 07/07/18 [History] Loratadine 10 mg PO DAILY 07/07/18 [History] Metoprolol Tartrate 100 mg PO BID 07/07/18 [History] Insulin Regular, Human [Humulin R U-500 Kwikpen] 10 units SQ PCLUNCH #0 [Rx] Insulin Regular, Human [Humulin R U-500 Kwikpen] 10 units SQ QAM #0 07/11/18 [Rx ] Insulin Regular, Human [Humulin R U-500 Kwikpen] 10 units SUBCUT WITHDINNER #0 07/11/18 [Rx] Amoxicillin/Potassium Clav [Augmentin 875-125 Tablet] 1 each PO BID #14 tablet 12/01/18 [Rx] Lactobacillus Rhamnosus GG [Culturelle] 1 cap PO BID #60 cap 12/01/18 [Rx] Referrals: Malina Garcia MD [Ordering Only Provider] - - Discharge Summary/Plan Comment DC Time >30 min.: No - Patient Data Vitals - Most Recent: Last Vital Signs Temp 98.2 F 12/01/18 08:03 Pulse 80 12/01/18 10:00 Resp 18 12/01/18 08:03 BP 137/60 12/01/18 10:00 Pulse Ox 95 12/01/18 08:03 Weight - Most Recent: 268 lb 12.813 oz I&O - Last 24 hours: Intake & Output 04/12/01/18 12/01/18 22:59 06:59 14:59 Intake Total 50 Balance 50 AMRIT Results - Last 24 hrs: Microbiology 11/27/18 04:35 Aerobic Blood Culture - Preliminary Blood - Arm, Left NO GROWTH AFTER 3 DAYS Anaerobic Blood Culture - Preliminary NO GROWTH AFTER 3 DAYS 11/27/18 22:18 Aerobic Blood Culture - Preliminary Blood NO GROWTH AFTER 3 DAYS Anaerobic Blood Culture - Preliminary NO GROWTH AFTER 3 DAYS Med Orders - Current: Current Medications Acetaminophen (Tylenol) 650 mg PO Q4H PRN PRN Reason: Pain (Mild 1-3)/fever Last Admin: 11/30/18 15:30 Dose: 650 mg Acetaminophen (Tylenol) 650 mg RECTAL Q4H PRN PRN Reason: Fever Last Admin: 11/28/18 01:45 Dose: 650 mg Albuterol (Proventil Neb Soln) 2.5 mg NEB Q4H PRN PRN Reason: Shortness Of Breath/wheezing Atorvastatin Calcium (Lipitor) 40 mg PO BEDTIME [facility] Last Admin: 11/30/18 20:05 Dose: 40 mg Bupropion HCl (Wellbutrin Xl) 300 mg PO BEDTIME [facility] Last Admin: 11/30/18 20:06 Dose: 300 mg Dextrose (Glutose 15) 15 gm PO ONETIME PRN PRN Reason: Hypoglycemia Dextrose/Water (Dextrose 50% In Water) 50 ml IV ONETIME PRN PRN Reason: Hypoglycemia Enoxaparin Sodium (Lovenox) 40 mg SUBCUT BEDTIME [facility] Last Admin: 11/30/18 20:05 Dose: 40 mg Fenofibrate (Fenofibrate) 134 mg PO DAILY [facility] Last Admin: 12/01/18 10:02 Dose: 134 mg Gabapentin (Neurontin) 600 mg PO TID [facility] Last Admin: 12/01/18 10:02 Dose: 600 mg Haloperidol Lactate (Haldol) 1 mg IVPUSH Q2H PRN PRN Reason: Agitation Last Admin: 11/28/18 02:27 Dose: 1 mg Piperacillin/Tazobactam/ (Dextrose 3.375 gm/ Premix) 50 mls @ 100 mls/hr IV Q6H [facility] Last Admin: 12/01/18 05:15 Dose: 100 mls/hr Vancomycin HCl 2 gm/ Sodium (Chloride) 500 mls @ 333.333 mls/hr IV Q12H [facility] Last Admin: 11/30/18 22:16 Dose: 333.333 mls/hr Insulin Human Lispro (Humalog) 0 unit SUBCUT QIDACANDBED [facility]; Protocol Last Admin: 12/01/18 07:39 Dose: 2 units Lactobacillus Rhamnosus (Culturelle) 1 cap PO BID [facility] Last Admin: 12/01/18 10:01 Dose: 1 cap Liraglutide (Victoza) 1.8 mg SUBCUT DAILY [facility] Last Admin: 12/01/18 10:04 Dose: 1.8 mg Magnesium Oxide (Magnesium Oxide) 400 mg PO BID [facility] Last Admin: 12/01/18 10:03 Dose: 400 mg Metformin HCl (Glucophage) 1,000 mg PO BIDMEALS [facility] Last Admin: 12/01/18 07:39 Dose: 1,000 mg Metoprolol Tartrate (Lopressor) 100 mg PO BID [facility] Last Admin: 12/01/18 10:00 Dose: 100 mg (Empagliflozin [ Jardiance] 25 Mg)* Pom* 25 mg PO DAILY [facility] Last Admin: 12/01/18 10:03 Dose: 25 mg Ondansetron HCl (Zofran) 4 mg IV Q4H PRN PRN Reason: Nausea/Vomiting Pantoprazole Sodium (Protonix) 40 mg PO ACBREAKFAST [facility] Last Admin: 12/01/18 07:38 Dose: 40 mg Polyethylene Glycol (Miralax) 17 gm PO DAILY PRN PRN Reason: Constipation Sodium Chloride (Saline Flush) 10 ml FLUSH ASDIRECTED PRN PRN Reason: Keep Vein Open Discontinued Medications Acetaminophen (Tylenol) 650 mg RECTAL NOW ONE Stop: 11/27/18 21:53 Last Admin: 11/27/18 22:04 Dose: 650 mg Haloperidol Lactate (Haldol) 2 mg IVPUSH ONETIME ONE Stop: 11/27/18 22:33 Last Admin: 11/27/18 22:36 Dose: 2 mg Sodium Chloride (Normal Saline) 1,000 mls @ 999 mls/hr IV ASDIRECTED [facility] Stop: 11/28/18 00:46 Last Infusion: 11/27/18 22:26 Dose: Infused Sodium Chloride (Normal Saline) 1,000 mls @ 999 mls/hr IV .BOLUS ONE Stop: 11/27/18 23:19 Last Admin: 11/27/18 22:43 Dose: 999 mls/hr Vancomycin HCl 1 gm/ Sodium (Chloride) 250 mls @ 150 mls/hr IV ONETIME ONE Stop: 11/28/18 01:13 Last Admin: 11/27/18 23:43 Dose: 150 mls/hr Piperacillin Sod/Tazobactam (Sod 4.5 gm/ Sodium Chloride) 100 mls @ 100 mls/hr IV ONETIME ONE Stop: 11/28/18 00:34 Last Admin: 11/27/18 23:53 Dose: 100 mls/hr Sodium Chloride (Normal Saline) 1,000 mls @ 999 mls/hr IV .BOLUS ONE Stop: 11/28/18 00:38 Last Admin: 11/27/18 23:41 Dose: 999 mls/hr Lactated Ringer's (Ringers, Lactated) 1,000 mls @ 125 mls/hr IV ASDIRECTED [facility] Last Admin: 11/28/18 00:58 Dose: 125 mls/hr Piperacillin Sod/Tazobactam (Sod 3.375 gm/ Sodium Chloride) 50 mls @ 100 mls/ hr IV Q6H [facility] Last Admin: 11/28/18 05:57 Dose: 100 mls/hr Vancomycin HCl 1.75 gm/ Sodium (Chloride) 250 mls @ 166.667 mls/hr IV Q12H [facility] Vancomycin HCl 1.75 gm/ Sodium (Chloride) 250 mls @ 166.667 mls/hr IV Q12H [facility] Last Admin: 11/29/18 22:49 Dose: 166.667 mls/hr Potassium Chloride 20 meq/ (Premix) 100 mls @ 50 mls/hr IV Q2H [facility] Stop: 11/28/18 12:59 Last Admin: 11/28/18 11:10 Dose: 50 mls/hr Magnesium Sulfate 2 gm/ Premix 50 mls @ 25 mls/hr IV Q6H [facility] Stop: 11/28/18 17:59 Last Admin: 11/28/18 15:18 Dose: 25 mls/hr Vancomycin HCl (Vancomycin) 1 gm IV .PHARMACY TO DOSE GONZALO - Exam Quality Assessment: Reports: DVT Prophylaxis General: Reports: Alert, Oriented, Cooperative, No Acute Distress Lungs: Reports: Clear to Auscultation, Normal Respiratory Effort Cardiovascular: Reports: Regular Rate, Regular Rhythm, No Murmurs GI/Abdominal Exam: Soft, Non-Tender, No Organomegaly, No Distention Skin: Reports: Other (Mild tenderness and erythema anterior aspect of the right lower leg)
[2018-12-01] MEDS: Vancomycin 2 GM in Sodium Chloride 0.9% 500 ML IV SCH (12:53)
== END 2018-12-01 13:07 | disposition home or self-care (01) | DRG 872 ==
LOC: JP.ED 21:41 → JP.ICU 23:49 → JP.MS 11-29 09:52
PROVIDERS: ADMIT Hospitalist; ATTEND Hospitalist
DX: L03.116 Cellulitis of left lower limb (principal); A41.9 Sepsis, unspecified organism; L03.115 Cellulitis of right lower limb; I10 Essential (primary) hypertension; N17.9 Acute kidney failure, unspecified; R65.20 Severe sepsis without septic shock; E11.59 Type 2 diabetes mellitus with other circulatory complications; E11.22 Type 2 diabetes mellitus with diabetic chronic kidney disease; I12.9 Hypertensive chronic kidney disease with stage 1 through stage 4 chronic kidney disease, or unspecified chronic kidney disease; N18.3 Chronic kidney disease, stage 3 (moderate); I25.10 Atherosclerotic heart disease of native coronary artery without angina pectoris; R41.82 Altered mental status, unspecified; R00.0 Tachycardia, unspecified; E78.00 Pure hypercholesterolemia, unspecified; J45.909 Unspecified asthma, uncomplicated; F32.9 Major depressive disorder, single episode, unspecified; F17.210 Nicotine dependence, cigarettes, uncomplicated; Z88.8 Allergy status to other drugs, medicaments and biological substances; Z79.899 Other long term (current) drug therapy; Z79.4 Long term (current) use of insulin; Z86.718 Personal history of other venous thrombosis and embolism; Z95.1 Presence of aortocoronary bypass graft
CPT/HCPCS: 36415; 51702; 71045; 80048; 80053; 80202; 81001; 82962; 83605; 83735; 84132; 85025; 87040; 87086; 93005; 93010; 94762; 96361; 96365; 96375; 99285-25; A9270-GY; J1630; J1650; J1815; J2543; J3370; J3475; J3480; J7030; J7040; J7050; J7120

== ENCOUNTER 2019-11-07 00:32 | Emergency (ER) | payer MEDICARE, MEDICAID ==
--- NOTE | 2019-11-07 01:17 | EDM.PDOC ---
ED HPI GENERAL MEDICAL PROBLEM - General Chief Complaint: General Stated Complaint: MEDICAL [facility]IA [facility] Time Seen by Provider: 11/07/19 01:05 Source of Information: Reports: Patient, Old Records History Limitations: Reports: No Limitations - History of Present Illness INITIAL COMMENTS - FREE TEXT/NARRATIVE: 64 yo male here via EMS from the [facility] for low blood sugar. Drank about a 1/4 can of regular soda at home before EMS arrived. Says he was low and symptomatic for about 30 minutes. Feels a little chilled now, otherwise back to normal. Sees a Dr. Wheeler from [place] in [place], [place]. Lives alone. Does not take any ARB or ACEI meds. Has a pHx of CABG, his sx's before he was found to have CAD was MO, not chest pains. He has not had any recent CP or MO. No recent illnesses. Is not sure why he got low on his blood sugar tonight. Lowest BS tonight of 41. Onset: Today Onset Date: 11/07/19 Duration: Minutes:, Resolved Prior to Arrival Location: Reports: Generalized Quality: Reports: Other (no pain reported) Severity: Moderate Improves with: Reports: Other (soda pop) Worsens with: Reports: Other (unsure) Context: Reports: Other (see HPI) Associated Symptoms: Reports: Diaphoresis. 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 (see below) (none by EMS) - Related Data Allergies Allergy/AdvReac Type Severity Reaction Status Date / Time methyldopa [From [place]] Allergy Cough Verified 11/07/19 00:38 methyldopate HCl Allergy Cough Verified 11/07/19 00:38 [From [facility]] Home Meds: Home Meds Cholecalciferol (Vitamin D3) [Vitamin D3] 2,000 unit PO DAILY 06/28/13 [History] Fenofibrate,Micronized [Fenofibrate] 134 mg PO DAILY 06/28/13 [History] Furosemide [Lasix] 80 mg PO BID 06/28/13 [History] Gabapentin [Neurontin] 600 mg PO TID 06/28/13 [History] Omeprazole 20 mg PO BIDAC 06/28/13 [History] buPROPion [buPROPion XL] 300 mg PO BEDTIME 06/28/13 [History] atorvaSTATin [Lipitor] 40 mg PO BEDTIME 02/10/16 [History] metFORMIN HCl [Metformin HCl] 1,000 mg PO BID 08/02/17 [History] Empagliflozin [Jardiance] 25 mg PO DAILY 07/07/18 [History] Liraglutide [Victoza] 1.8 mg SUBCUT DAILY 07/07/18 [History] Loratadine 10 mg PO DAILY 07/07/18 [History] Metoprolol Tartrate 100 mg PO BID 07/07/18 [History] Lactobacillus Rhamnosus GG [Culturelle] 1 cap PO BID #60 cap 12/01/18 [Rx] Insulin Regular, Human [Humulin R U-500 Kwikpen] 70 units SQ PCLUNCH 11/07/19 [ History] Insulin Regular, Human [Humulin R U-500 Kwikpen] 145 units SUBCUT WITHDINNER [History] Insulin Regular, Human [Humulin R U-500 Kwikpen] 155 units SQ QAM 11/07/19 [ History] Past Medical History HEENT History: Reports: Impaired Vision Cardiovascular History: Reports: Blood Clots/VTE/DVT, CAD, High Cholesterol, Hypertension Respiratory History: Reports: Asthma Gastrointestinal History: Reports: None Musculoskeletal History: Reports: Other (See Below) Other Musculoskeletal History: bilateral rotator cuff surgery Psychiatric History: Reports: Depression Endocrine/Metabolic History: Reports: Diabetes, Type II, Obesity/BMI 30+ Dermatologic History: Reports: Cellulitis - Infectious Disease History Infectious Disease History: Reports: Chicken Pox - Past Surgical History Head Surgeries/Procedures: Reports: None HEENT Surgical History: Reports: Tonsillectomy Cardiovascular Surgical History: Reports: Coronary Artery Bypass Other Cardiovascular Surgeries/Procedures: bypass 2011 Respiratory Surgical History: Reports: None GI Surgical History: Reports: Colonoscopy Endocrine Surgical History: Reports: None Musculoskeletal Surgical History: Reports: Arthroscopic Knee, Shoulder Surgery Dermatological Surgical History: Reports: None Social & Family History - Family History Family Medical History: Noncontributory - Tobacco Use Smoking Status *Q: Never Smoker Second Hand Smoke Exposure: No - Caffeine Use Caffeine Use: Reports: Coffee, Soda - Recreational Drug Use Recreational Drug Use: No - Living Situation & Occupation Living situation: Reports: with Significant Other (Lives in [place] with significant other, has 1 child who lives [place], [place].) Occupation: Retired ED ROS GENERAL - Review of Systems Review Of Systems: See Below Constitutional: Reports: Diaphoresis (resolved before arrival) HEENT: Reports: No Symptoms Respiratory: Reports: No Symptoms Cardiovascular: Reports: No Symptoms Endocrine: Reports: Low Glucose GI/Abdominal: Reports: No Symptoms : Reports: No Symptoms Musculoskeletal: Reports: No Symptoms Skin: Reports: Diaphoresis Neurological: Reports: No Symptoms ED EXAM, GENERAL - Physical Exam Exam: See Below Exam Limited By: No Limitations General Appearance: Alert, WD/WN, No Apparent Distress, Obese Eye Exam: Bilateral Eye: Normal Inspection Ears: Normal External Exam, Normal Canal, Hearing Grossly Normal Ear Exam: Bilateral Ear: Auricle Normal, Canal Normal Nose: Normal Inspection, No Blood Throat/Mouth: Normal Inspection, Normal Lips, Normal Oropharynx, Normal Voice, No Airway Compromise Head: Atraumatic, Normocephalic Neck: Normal Inspection Respiratory/Chest: No Respiratory Distress, Lungs Clear, Normal Breath Sounds, No Accessory Muscle Use Cardiovascular: Regular Rate, Rhythm, No Edema GI/Abdominal: Normal Bowel Sounds, Soft, Non-Tender, No Distention Extremities: Normal Inspection, Normal Range of Motion, Non-Tender, No Pedal Edema Neurological: Alert, Oriented, CN II-XII Intact, Normal Cognition, No Motor/ Sensory Deficits Psychiatric: Normal Affect, Normal Mood Skin Exam: Warm, Dry, Intact, Normal Color, No Rash Course - Vital Signs Text/Narrative:: Initial POC glucose 46. Was fed, repeat POC glucose 50 min later is 156. Took for a walk in the ER, mainly due to his BP being so low. His BP actually went up when he stood. Did fine walking. Last Recorded V/S: Last Vital Signs Temp 35.6 C L 11/07/19 00:45 Pulse 75 11/07/19 03:37 Resp 20 11/07/19 03:37 BP 106/48 L 11/07/19 03:37 Pulse Ox 94 L 11/07/19 02:31 - Orders/Labs/Meds Orders: Active Orders 24 hr Category Date Time Status POC Glucose [Blood Glucose Check, Bedside] [RC] ONETIME Care 11/07/19 04:00 Active Departure - Departure Time of Disposition: 04:15 Disposition: Home, Self-Care 01 Condition: Good Clinical Impression: Hypoglycemia - Discharge Information *PRESCRIPTION DRUG MONITORING PROGRAM REVIEWED*: Not Applicable *COPY OF PRESCRIPTION DRUG MONITORING REPORT IN PATIENT TOO: Not Applicable Instructions: Hypoglycemia, [id number] Referrals: PCP,None [Primary Care Provider] - Forms: ED Department Discharge Additional Instructions: Watch blood sugars more closely for the next several hours until you see a trend for them to be in a safe range. Follow up with your provider if any blood sugar issues continue. Return as needed. Sepsis Event Note - Evaluation Sepsis Screening Result: No Definite Risk - Focused Exam Vital Signs: Vital Signs Temp Pulse Resp BP Pulse Ox 11/07/19 03:37 75 20 106/48 L 11/07/19 03:06 70 19 89/37 L 11/07/19 02:36 74 17 134/52 L 11/07/19 02:31 77 131/70 94 L 11/07/19 02:29 74 130/62 97 11/07/19 01:52 71 15 91/41 L 11/07/19 01:30 75 16 124/83 11/07/19 01:05 68 14 110/54 L 94 L 11/07/19 00:52 70 17 92/36 L 98 11/07/19 00:45 35.6 C L 70 12 97/45 L 93 L 11/07/19 00:44 35.6 C L 70 12 97/45 L 93 L Date Exam was Performed: 11/07/19 Time Exam was Performed: 04:04 - My Orders Last 24 Hours: My Active Orders 11/07/19 04:00 POC Glucose [Blood Glucose Check, Bedside] [RC] ONETIME - Assessment/Plan Last 24 Hours: My Active Orders 11/07/19 04:00 POC Glucose [Blood Glucose Check, Bedside] [RC] ONETIME
[2019-11-07 03:38] VITALS: BP 106/48; PULSE 75
== END 2019-11-07 04:39 | disposition home or self-care (01) ==
LOC: JP.ED 00:32
DX: E11.649 Type 2 diabetes mellitus with hypoglycemia without coma (principal); E78.00 Pure hypercholesterolemia, unspecified; I25.10 Atherosclerotic heart disease of native coronary artery without angina pectoris; I10 Essential (primary) hypertension; F32.9 Major depressive disorder, single episode, unspecified; E66.9 Obesity, unspecified; J45.909 Unspecified asthma, uncomplicated; Z88.8 Allergy status to other drugs, medicaments and biological substances; Z79.899 Other long term (current) drug therapy; Z79.4 Long term (current) use of insulin
CPT/HCPCS: 82962; 99282; 99285

== ENCOUNTER 2025-07-15 19:48 | Emergency (ER) | payer MEDICARE, MEDICAID ==
[2025-07-15 20:36] LABS: BASOPHILS ABSOLUTE AUTO 0.06 K/uL (0.00-0.10); BASOPHILS PERCENT AUTO 0.6 % (0.1-1.3); EOSINOPHILS ABSOLUTE AUTO 0.12 K/uL (0.00-0.40); EOSINOPHILS PERCENT AUTO 1.2 % (0.0-5.4); IMMATURE GRAN ABSOLUTE AUTO 0.05 K/uL (0.00-0.23); IMMATURE GRAN PERCENT AUTO 0.5 % (0.0-0.7); LYMPHOCYTES ABSOLUTE AUTO 1.82 K/uL (0.8-3.3); LYMPHOCYTES PERCENT AUTO 18.3 % (11.4-47.7); MONOCYTES ABSOLUTE AUTO 0.75 K/uL (0.20-0.90); MONOCYTES PERCENT AUTO 7.6 % (3.3-12.6); NEUTROPHILS ABSOLUTE AUTO 7.12 K/uL (1.0-7.6); NEUTROPHILS PERCENT AUTO 71.8 % (40.0-78.1); PLATELET COUNT,PLT 255 K/uL (130-375); RED BLOOD CELL COUNT 5.53 M/uL (4.14-5.76); WHITE BLOOD CELL COUNT,WBC 9.9 K/uL (3.2-11.0)
[2025-07-15 20:57] LABS: A/G RATIO 1.0 (1.2-2.2); ALANINE AMINOTRANSFERASE,ALT 37 U/L (12-78); ASPARTATE AMNIOTRANSFERASE,AST 7 U/L (15-37); BILIRUBIN TOTAL 0.3 mg/dL (0.2-1.0); BLOOD UREA NITROGEN,BUN 29 mg/dL (7-18); CARBON DIOXIDE,CO2 34 mmol/L (21-32); CHLORIDE,CL 99 mmol/L (100-108); CREATININE 1.8 mg/dL (0.8-1.3); ESTIMATED GFR 40 mL/min (>60); GLUCOSE RANDOM 136 mg/dL (74-106); POTASSIUM,K 3.5 mmol/L (3.6-5.2); PROTEIN TOTAL,TP 7.8 g/dL (6.4-8.2); SODIUM,NA 141 mmol/L (140-148)
[2025-07-15] MEDS ORDERED: Sodium Chloride 0.9% 10 ML Syringe FLUSH PRN (21:37)
[2025-07-15 21:52] VITALS: PULSE 91
[2025-07-15 22:34] VITALS: BP 141/83
== END 2025-07-15 22:30 | disposition home or self-care (01) ==
LOC: JP.ED 19:48
DX: E11.649 Type 2 diabetes mellitus with hypoglycemia without coma (principal); R55 Syncope and collapse; E86.0 Dehydration; I10 Essential (primary) hypertension; E78.00 Pure hypercholesterolemia, unspecified; J45.909 Unspecified asthma, uncomplicated; Z95.5 Presence of coronary angioplasty implant and graft; Z88.8 Allergy status to other drugs, medicaments and biological substances; Z79.4 Long term (current) use of insulin; Z79.84 Long term (current) use of oral hypoglycemic drugs; Z79.899 Other long term (current) drug therapy
CPT/HCPCS: 36415; 80053; 82947; 84484; 85025; 93005; 93010; 96360; 99283; 99284; J7030